=== PATIENT | female | born 1975 | race Caucasian/White ===

== ENCOUNTER 2016-10-08 11:56 | Observation (INO) | payer OTHER ==
[2016-10-08] MEDS ORDERED: ONDANSETRON 4 MG/2 ML VIAL IVP STA (12:26)
[2016-10-08] MEDS ORDERED: SODIUM CHLORIDE 0.9% 1,000 ML IV STA (12:26)
[2016-10-08] MEDS ORDERED: HYDROmorphone 1 MG/ML 1 ML SYRINGE IVP STA (12:26)
[2016-10-08] MEDS ORDERED: FAMOTIDINE 20 MG/2 ML VIAL IV STA (12:27)
--- NOTE | 2016-10-08 12:30 | ED ---
General Adult HPI - General Chief complaint: Chest Pain Stated complaint: chest pain, hx acid reflux Time Seen by Provider: 10/08/16 12:21 Source: patient, RN notes reviewed Mode of arrival: ambulatory Limitations: no limitations - History of Present Illness Initial comments: Patient is a pleasant 41-year-old female presenting to the emergency department complaining of her gastritis problems. Patient states is chronic for the past couple of years. Patient states she has been hospitalized 9 times in the past 2 years for this. Patient states symptoms started again around 3 AM. Patient has sharp discomfort in the sternal region. Patient states it feels burning somewhat. Patient has nausea and has vomited a couple of times. Patient states this is similar to her previous problems. Patient states she vomits because the pain is so bad. Patient states there is not much abdominal discomfort which is also normal for her. No difficulty in breathing. No fevers. - Related Data Home Medications Medication Instructions Recorded Confirmed Calcium Carbonate [Tums] 500 mg PO QID PRN 08/25/16 10/08/16 Cyclobenzaprine [Flexeril] 10 mg PO TID PRN 08/25/16 10/08/16 HYDROcodone/APAP 5-325MG [[place] 1 tab PO Q8H PRN 08/25/16 10/08/16 5-325] Ranitidine HCl [Zantac] 150 mg PO BID PRN 08/25/16 10/08/16 Previous Rx's Medication Instructions Recorded Omeprazole [PriLOSEC] 40 mg PO BID #60 capsule. 04/09/15 Sucralfate [Carafate] 1 gm PO ACHS #200 ml 08/25/16 Allergies Allergy/AdvReac Type Severity Reaction Status Date / Time ibuprofen [From Motrin] Allergy Rash/Hives Verified 10/08/16 12:59 Review of Systems ROS Statement: Those systems with pertinent positive or pertinent negative responses have been documented in the HPI. ROS Other: All systems not noted in ROS Statement are negative. Constitutional: Denies: fever Eyes: Denies: eye pain ENT: Denies: ear pain Respiratory: Denies: cough Cardiovascular: Reports: chest pain Endocrine: Denies: fatigue Gastrointestinal: Reports: nausea, vomiting. Denies: abdominal pain Genitourinary: Denies: dysuria Musculoskeletal: Denies: back pain Skin: Denies: rash Past Medical History Past Medical History: GERD/Reflux, Syncope Additional Past Medical History / Comment(s): Recent admission to [facility] 01/19/16 with abdominal pain. Other HX: PUD, hiatal hernia, ovarian cyst, anemia, nonsustained Vtach, DJD,back pain due to fracture L5 FX AND BROKE TAILBONE, SINUS PROBLEMS, multiple kidney infections History of Any Multi-Drug Resistant Organisms: None Reported Past Surgical History: Section, Cholecystectomy, Hysterectomy, Orthopedic Surgery, Tubal Ligation Additional Past Surgical History / Comment(s): Laparoscopic surgery where bowel was nicked so had emergency bowel surgery, R breast biopsy-NEG, LT hand surgery- CYST REMOVED, x2. Past Anesthesia/Blood Transfusion Reactions: No Reported Reaction Additional Past Anesthesia/Blood Transfusion Reaction / Comment(s): CLAUSTERPHOBIA. Pt had 2 units blood transfused when she had laparoscopic surgery and bowel was nicked. Past Psychological History: No Psychological Hx Reported Additional Psychological History / Comment(s): Pt lives with her mom and 2 children ages 14 and 21yrs. She is normally independent. Smoking Status: Current every day smoker Past Alcohol Use History: None Reported Additional Past Alcohol Use History / Comment(s): Pt started smoking in 1992. She quit during her pregnancies. Pt. states she has been trying to quit smoking , states she smokes 1/2 a pack a day Past Drug Use History: None Reported - Past Family History Sister(s) Additional Family Medical History / Comment(s): Irregular HR. Full Hysterectomy. Ovarian CA. Gallbladder. Kidney issues Father Family Medical History: Cancer Additional Family Medical History / Comment(s): BLADDER CANCER SPREAD TO KIDNEY AND PROSTATE Mother Family Medical History: COPD, GERD/Reflux, Thyroid Disorder Additional Family Medical History / Comment(s): Vertigo General Exam Limitations: no limitations General appearance: alert Head exam: Present: atraumatic, normocephalic Eye exam: Present: normal appearance, PERRL ENT exam: Present: normal oropharynx Neck exam: Present: normal inspection Respiratory exam: Present: normal lung sounds bilaterally, chest wall tenderness Cardiovascular Exam: Present: regular rate, normal rhythm GI/Abdominal exam: Present: soft. Absent: distended, tenderness Extremities exam: Present: normal inspection. Absent: pedal edema Neurological exam: Present: alert Psychiatric exam: Present: normal affect, normal mood Skin exam: Present: normal color Course Vital Signs 01/22/17 01/22/17 12:07 14:35 Temperature 98.0 F 97.8 F Pulse Rate 87 80 Respiratory 18 18 Rate Blood Pressure 172/101 145/86 O2 Sat by Pulse 99 100 Oximetry EKG Findings - EKG Comments: EKG Findings:: Normal sinus rhythm at 81. Normal intervals. Normal axis. normal QRS. Normal ST-T. Medical Decision Making - Medical Decision Making Patient reexamined and does appear more comfortable. Patient states her symptoms are the same as when she got here and is not comfortable with discharge. Case was discussed with Dr. holliday, who will admit for Dr. Whitfield. - Lab Data Result diagrams: 10/08/16 12:57 10/08/16 12:57 Lab Results 10/08/16 10/08/16 10/08/16 Range/Units 12:57 12:57 12:57 WBC 8.6 (3.8-10.6) k/uL RBC 4.31 (3.80-5.40) m/uL Hgb 13.3 (11.4-16.0) gm/dL Hct 40.1 (34.0-46.0) % MCV 93.0 (80.0-100.0) fL MCH 30.9 (25.0-35.0) pg MCHC 33.3 (31.0-37.0) g/dL RDW 14.6 (11.5-15.5) % Plt Count 318 (150-450) k/uL Neutrophils % 74 % Lymphocytes % 20 % Monocytes % 3 % Eosinophils % 1 % Basophils % 1 % Neutrophils # 6.4 (1.3-7.7) k/uL Lymphocytes # 1.7 (1.0-4.8) k/uL Monocytes # 0.3 (0-1.0) k/uL Eosinophils # 0.1 (0-0.7) k/uL Basophils # 0.1 (0-0.2) k/uL PT (9.0-12.0) sec INR (<1.1) APTT (22.0-30.0) sec Sodium 143 (137-145) mmol/L Potassium 4.2 (3.5-5.1) mmol/L Chloride 107 (98-107) mmol/L Carbon Dioxide 26 (22-30) mmol/L Anion Gap 10 mmol/L BUN 11 (7-17) mg/dL Creatinine 0.69 (0.52-1.04) mg/dL Est GFR (MDRD) Af Amer >60 (>60 ml/min/1.73 sqM) Est GFR (MDRD) Non-Af >60 (>60 ml/min/1.73 sqM) Glucose 103 H (74-99) mg/dL Calcium 9.3 (8.4-10.2) mg/dL Total Bilirubin 0.4 (0.2-1.3) mg/dL AST 17 (14-36) U/L ALT 29 (9-52) U/L Alkaline Phosphatase 93 (38-126) U/L Total Creatine Kinase 71 (30-135) U/L CK-MB (CK-2) 0.3 (0.0-2.4) ng/mL CK-MB (CK-2) Rel Index 0.4 Troponin I <0.012 (0.000-0.034) ng/mL Total Protein 6.9 (6.3-8.2) g/dL Albumin 4.0 (3.5-5.0) g/dL Amylase <30 L (30-110) U/L Lipase 122 (23-300) U/L Urine Color Urine Appearance (Clear) Urine pH (5.0-8.0) Ur Specific [place] (1.001-1.035) Urine Protein (Negative) Urine Glucose (UA) (Negative) Urine Ketones (Negative) Urine Blood (Negative) Urine Nitrate (Negative) Urine Bilirubin (Negative) Urine Urobilinogen (<2.0) mg/dL Ur Leukocyte Esterase (Negative) Urine RBC (0-5) /hpf Ur Squamous Epith Cells (0-4) /hpf Amorphous Sediment (None) /hpf Urine Mucus (None) /hpf 10/08/16 10/08/16 Range/Units 12:57 13:05 WBC (3.8-10.6) k/uL RBC (3.80-5.40) m/uL Hgb (11.4-16.0) gm/dL Hct (34.0-46.0) % MCV (80.0-100.0) fL MCH (25.0-35.0) pg MCHC (31.0-37.0) g/dL RDW (11.5-15.5) % Plt Count (150-450) k/uL Neutrophils % % Lymphocytes % % Monocytes % % Eosinophils % % Basophils % % Neutrophils # (1.3-7.7) k/uL Lymphocytes # (1.0-4.8) k/uL Monocytes # (0-1.0) k/uL Eosinophils # (0-0.7) k/uL Basophils # (0-0.2) k/uL PT 10.8 (9.0-12.0) sec INR 1.1 (<1.1) APTT 24.3 (22.0-30.0) sec Sodium (137-145) mmol/L Potassium (3.5-5.1) mmol/L Chloride (98-107) mmol/L Carbon Dioxide (22-30) mmol/L Anion Gap mmol/L BUN (7-17) mg/dL Creatinine (0.52-1.04) mg/dL Est GFR (MDRD) Af Amer (>60 ml/min/1.73 sqM) Est GFR (MDRD) Non-Af (>60 ml/min/1.73 sqM) Glucose (74-99) mg/dL Calcium (8.4-10.2) mg/dL Total Bilirubin (0.2-1.3) mg/dL AST (14-36) U/L ALT (9-52) U/L Alkaline Phosphatase (38-126) U/L Total Creatine Kinase (30-135) U/L CK-MB (CK-2) (0.0-2.4) ng/mL CK-MB (CK-2) Rel Index Troponin I (0.000-0.034) ng/mL Total Protein (6.3-8.2) g/dL Albumin (3.5-5.0) g/dL Amylase (30-110) U/L Lipase (23-300) U/L Urine Color Yellow Urine Appearance Cloudy H (Clear) Urine pH 8.0 (5.0-8.0) Ur Specific [place] 1.014 (1.001-1.035) Urine Protein Negative (Negative) Urine Glucose (UA) Negative (Negative) Urine Ketones Negative (Negative) Urine Blood Negative (Negative) Urine Nitrate Negative (Negative) Urine Bilirubin Negative (Negative) Urine Urobilinogen <2.0 (<2.0) mg/dL Ur Leukocyte Esterase Negative (Negative) Urine RBC 7 H (0-5) /hpf Ur Squamous Epith Cells 7 H (0-4) /hpf Amorphous Sediment Rare H (None) /hpf Urine Mucus Rare H (None) /hpf - Radiology Data Radiology results: image reviewed (Chest and abdominal x-rays show no acute process.) Disposition Clinical Impression: Intractable pain, Reflux gastritis, Chest pain Disposition: ADMITTED IP TO THIS HOSP Referrals: Wilner Hernández MD [Primary Care Provider] - 1-2 days
[2016-10-08 13:08] LABS: Basophils # (A) 0.1 k/uL (0-0.2); Basophils % (A) 1 %; CH 32.1; CHCM 34.7; Eosinophils # (A) 0.1 k/uL (0-0.7); Eosinophils % (A) 1 %; HCT 40.1 % (34.0-46.0); HDW 2.67; HGB 13.3 gm/dL (11.4-16.0); Luc # (Auto) 0.09; Luc % (Auto) 1; Lymphocytes # (A) 1.7 k/uL (1.0-4.8); Lymphocytes % (A) 20 %; MCH 30.9 pg (25.0-35.0); MCHC 33.3 g/dL (31.0-37.0); Mean Platelet Volume 7.3; Monocytes # (A) 0.3 k/uL (0-1.0); Monocytes % (A) 3 %; Neutrophils # (A) 6.4 k/uL (1.3-7.7); Neutrophils % (A) 74 %; RBC 4.31 m/uL (3.80-5.40); RDW 14.6 % (11.5-15.5); WBC 8.6 k/uL (3.8-10.6); WBC (Perox) 8.79
[2016-10-08 13:17] LABS: INR 1.1 (<1.1); Partial Thromboplastin Time 24.3 sec (22.0-30.0); Prothrombin Time 10.8 sec (9.0-12.0)
[2016-10-08 13:19] LABS: ALT 29 U/L (9-52); AST 17 U/L (14-36); Alkaline Phosphatase 93 U/L (38-126); Amylase <30 U/L (30-110); Anion Gap 10 mmol/L; Blood Urea Nitrogen 11 mg/dL (7-17); Calcium 9.3 mg/dL (8.4-10.2); Carbon Dioxide 26 mmol/L (22-30); Chloride 107 mmol/L (98-107); Glucose 103 mg/dL (74-99); Non-African American GFR(MDRD) >60 (>60 ml/min/1.73 sqM); Potassium 4.2 mmol/L (3.5-5.1); Sodium 143 mmol/L (137-145); Total Bilirubin 0.4 mg/dL (0.2-1.3); Total Protein 6.9 g/dL (6.3-8.2)
[2016-10-08 13:22] LABS: Amorphous Sediment,Urine Rare /hpf; Appearance,Urine Cloudy (Clear); Bilirubin,Urine Negative (Negative); Glucose,Urine (UA) Negative (Negative); Ketones,Urine Negative (Negative); Leukocyte Esterase,Urine Negative (Negative); Mucus,Urine Rare /hpf; Nitrite,Urine Negative (Negative); Particle Count 16143; Protein,Urine Negative (Negative); RBC,Urine 7 /hpf (0-5); Specific Gravity,Urine 1.014 (1.001-1.035); Squamous Epithelial Cell,Urine 7 /hpf (0-4); UA Billing (MACRO vs. MICRO) MICRO; Urobilinogen,Urine <2.0 mg/dL (<2.0)
[2016-10-08 13:27] LABS: Creatine Kinase 71 U/L (30-135)
[2016-10-08 13:40] LABS: Creatine Kinase MB 0.3 ng/mL (0.0-2.4); Troponin I <0.012 ng/mL (0.000-0.034)
[2016-10-08] MEDS ORDERED: MAG HYDROX/AL HYDROX/SIMETH 30 ML, HYOSCYAMINE ELIXIR 10 ML, CIMETIDINE HCL 300 MG, LID... PO STA ×4 (14:00)
--- NOTE | 2016-10-08 14:06 | XR ---
EXAMINATION TYPE: XR chest 2V, XR KUB DATE OF EXAM: 10/08/2016 1:42 PM COMPARISON: Prior chest x-ray 25 August 2016 HISTORY: Abdominal pain, chest pain TECHNIQUE: Frontal and lateral views of the chest are obtained. Frontal view of the abdomen included FINDINGS: There is no focal air space opacity, pleural effusion, or pneumothorax seen. The cardiac silhouette size is within normal limits. The osseous structures are intact. There is no obstruction or pneumoperitoneum. Surgical clips in the right upper quadrant. IMPRESSION: No acute cardiopulmonary process. Nonobstructive bowel gas pattern.
[2016-10-08] MEDS ORDERED: NALOXONE 0.4 MG/ML 1 ML VIAL IV PRN (15:17)
[2016-10-08] MEDS ORDERED: ACETAMINOPHEN TAB 325 MG TAB PO STA (16:03)
[2016-10-08] MEDS: SODIUM CHLORIDE 0.9% 1,000 ML IV SCH (16:40)
[2016-10-08] MEDS: MORPHINE SULFATE 4 MG/ML SYRINGE IV PRN ×2 (16:45→21:47)
[2016-10-08] MEDS: SUCRALFATE 1 GM TAB PO SCH ×2 (17:52→21:46)
[2016-10-08 18:02] VITALS: BMI 20.5
[2016-10-08] MEDS: METOCLOPRAMIDE 5 MG/ML 2 ML VIAL IVP SCH (18:10)
[2016-10-08] MEDS ORDERED: MAG HYDROX/AL HYDROX/SIMETH 30 ML, HYOSCYAMINE ELIXIR 10 ML, CIMETIDINE HCL 300 MG, LID... PO PRN ×4 (22:36)
[2016-10-09] MEDS ORDERED: HYOSCYAMINE ELIXIR 250 MCG/10 ML BTL PO PRN
[2016-10-09] MEDS ORDERED: MAG HYDROX/AL HYDROX/SIMETH 30 ML CUP PO PRN
[2016-10-09] MEDS ORDERED: CIMETIDINE HCL 300 MG/5 ML PO PRN
[2016-10-09] MEDS: METOCLOPRAMIDE 5 MG/ML 2 ML VIAL IVP SCH ×5 (00:10→23:37)
[2016-10-09] MEDS: SODIUM CHLORIDE 0.9% 1,000 ML IV SCH ×3 (00:12→17:03)
[2016-10-09] MEDS: MORPHINE SULFATE 4 MG/ML SYRINGE IV PRN (03:59)
[2016-10-09] MEDS: SUCRALFATE 1 GM TAB PO SCH ×4 (08:04→21:01)
[2016-10-09] MEDS ORDERED: PANTOPRAZOLE 40 MG/10 ML VIAL IV SCH (09:00)
[2016-10-09] MEDS ORDERED: Acetaminophen-Codeine 300-30mg TAB PO PRN (09:06)
[2016-10-09] MEDS ORDERED: MORPHINE SULFATE 4 MG/ML SYRINGE IV PRN (09:07)
[2016-10-09] MEDS: HYDROmorphone 1 MG/ML 1 ML SYRINGE IVP PRN ×3 (14:06→21:59)
[2016-10-09] MEDS: NICOTINE 14MG/24HR PATCH TRANSDERM SCH (14:08)
[2016-10-09] MEDS: MAG HYDROX/AL HYDROX/SIMETH 30 ML, HYOSCYAMINE ELIXIR 10 ML, CIMETIDINE HCL 300 MG, LID... PO PRN ×8 (14:11→23:37)
[2016-10-09] MEDS: Acetaminophen-Codeine 300-30mg TAB PO PRN (17:39)
--- NOTE | 2016-10-09 19:11 | HP ---
DATE OF ADMISSION: 10/08/2016 CHIEF COMPLAINT: Epigastric abdominal pain. HISTORY OF PRESENT ILLNESS: Ms. Montenegro is a 41-year-old female with known history of multiple medical problems, including a duodenal ulcer, status post EGD previously and history of cholecystectomy in February 2016, diffuse gastritis history and other multiple medical problems, including degenerative disc disease. She came to the hospital with intractable abdominal pain, mainly in the epigastric region; no association with chest pain or shortness of breath. Patient does have nausea and episodes of vomiting. epigastric region. History of chest pain or short of breath. Patient does have nausea and episodes of vomiting. Denied any hematemesis or melena. Patient continues to smoke. Otherwise, patient had an EGD prior that showed diffuse gastritis and a duodenal ulcer with a stricture and also patient had elevated gastrin levels. Patient continues to smoke and also patient has been taking Excedrin recently. Patient does omeprazole 40 mg b.i.d. at home. Gastroenterology has been consulted for further evaluation. REVIEW OF SYSTEMS: CONSTITUTIONAL: No fever. No chills. No weakness, malaise. RESPIRATORY: No cough or sputum production. CARDIOVASCULAR: No chest pain or shortness of breath. ABDOMEN: Patient does have nausea. No episodes of vomiting now. Patient does have epigastric abdominal pain. No diarrhea. Patient does have history of chronic constipation. GENITOURINARY: No dysuria, retention. ENDOCRINE: Negative. PSYCHIATRY: Negative. SKIN: Negative. MUSCULOSKELETAL: Negative. All other 14-point review of systems negative except as above. Past medical history includes: 1. History of duodenal ulcer. 2. Elevated gastrin levels. 3. GERD. 4. Degenerative disc disease. 5. Nicotine dependence. 6. Hiatal hernia. 7. Anemia. 8. History of nonsustained ventricular tachycardia. 9. Sinus problems. 10. Multiple UTIs and renal infection. PAST SURGICAL HISTORY: 1. x2. 2. Cholecystectomy. 3. Hysterectomy. 4. Tubal ligation. 5. Laparoscopic surgery where bowel was nicked, so had emergency bowel surgery. 6. Right breast biopsy, negative. 7. Left hand surgery; cyst removed. PAST PSYCHIATRIC HISTORY: Claustrophobia. SOCIAL HISTORY: Patient lives with her mom and 2 children ages 14 and 21 years. Currently an everyday smoker; smokes about a half pack per day. Started smoking in 1992. She quit during pregnancies. Denied any alcohol use. Denied any drugs or IVDU. Denied any marijuana use. FAMILY HISTORY: Sister has irregular heart rate and ovarian cancer and gallbladder ( ). Father had bladder cancer that spread to the kidneys and prostate. Mother has COPD, GERD, thyroid disorder and vertigo. ALLERGIES: IBUPROFEN. Home medications include: 1. TUMS. 2. Flexeril. 3. [place] 5. 4. Zantac. 5. Omeprazole. 6. Sucralfate. PHYSICAL EXAMINATION: A 41-year-old female lying in bed. Awake, alert, oriented x3. Appears to be in no distress. VITALS: Blood pressure is 118/77. Pulse is 82, respiration 60, temperature afebrile, pulse ox 95% on room air. HEENT: Atraumatic, normocephalic. Neck is supple. No JVD. CVS EXAM: S1, S2 heard. No murmurs. No gallop. No rub. LUNGS: Bilateral air entry is present. No wheezing. No crackles. Nonlabored breathing. ABDOMEN: Soft. Epigastric tenderness positive. No guarding. No rigidity. Bowel sounds are present. ENDOCRINOLOGIST: Awake, alert and oriented x3. No focal deficit. Cranial nerves grossly intact. EXTREMITIES: No edema. Pulses palpable bilaterally. No clubbing or cyanosis. PSYCHIATRIC: Cooperative. LABORATORY DATA: WBC 8.6, hemoglobin 10.3, platelets 318. INR 1.1. Sodium 143, potassium 4.2, chloride 107. Bicarb is 26. BUN 11, creatinine 0.69. Calcium 9.3. Troponin 0.012. Lipase 122. UA cloudy. Leukocyte esterase negative. Squamous epithelial cells 7. Chest x-ray: no acute cardiopulmonary process. Normal bowel gas pattern. EKG: Normal sinus rhythm. KUB x-ray: No acute cardiopulmonary process. Nonobstructive bowel gas pattern. IMPRESSION: 1. Acute intractable epigastric abdominal pain, possible gastritis and reflux disease, acute gastritis and reflux disease. 2. History of duodenal ulcer and stricture. 3. Previous history of diffuse gastritis. 4. History of cholecystectomy done on February of 2016. 5. History of elevated serum gastrin level at 539. 6. Gastroesophageal reflux disease. 7. History of hiatal hernia. 8. History of non-sustained ventricular tachycardia. 9. Degenerative disc disease and multiple back surgeries. 10. Claustrophobia. 11. Nicotine dependence. 12. History of panic attacks. 13. History of nephrolithiasis. 14. History of mastectomy. 15. History of left ovarian cyst. DISCUSSION AND PLAN: Patient will be continued on Protonix 40 mg IV b.i.d. and continue with pain medications. Will change it to Dilaudid 0.5 mg q.4 hourly. Continue with the Tylenol No. 3 every 6 hours. Patient will be started on a nicotine patch. Will also start on stool softener. Will continue the pain management. Gastroenterology has been consulted for further evaluation. Continue with symptomatic management for nausea and vomiting. Further recommendations based on the clinical course.
[2016-10-09] MEDS: DOCUSATE 100 MG CAP PO SCH (21:01)
[2016-10-09] MEDS: PANTOPRAZOLE 40 MG/10 ML VIAL IVP SCH (21:01)
[2016-10-09] MEDS: TEMAZEPAM 15 MG CAP PO PRN (23:37)
[2016-10-10] MEDS: HYDROmorphone 1 MG/ML 1 ML SYRINGE IVP PRN ×6 (02:04→22:38)
[2016-10-10] MEDS: Acetaminophen-Codeine 300-30mg TAB PO PRN ×2 (02:06→06:16)
[2016-10-10] MEDS: SODIUM CHLORIDE 0.9% 1,000 ML IV SCH ×2 (05:10→23:53)
[2016-10-10] MEDS: METOCLOPRAMIDE 5 MG/ML 2 ML VIAL IVP SCH ×3 (06:15→20:10)
[2016-10-10] MEDS: SUCRALFATE 1 GM TAB PO SCH ×4 (08:10→22:37)
[2016-10-10] MEDS: DOCUSATE 100 MG CAP PO SCH ×2 (08:10→22:38)
[2016-10-10] MEDS: NICOTINE 14MG/24HR PATCH TRANSDERM SCH (09:02)
[2016-10-10] MEDS: PANTOPRAZOLE 40 MG/10 ML VIAL IVP SCH ×2 (09:02→22:37)
[2016-10-10] MEDS ORDERED: LIDOCAINE 1% INJ 10MG/ML (20 ML MDV) ONE (12:10)
[2016-10-10] MEDS ORDERED: PROPOFOL 10 MG/ML 20 ML VIAL IV ONE (12:10)
[2016-10-10] MEDS ORDERED: IV FLUID CONTINUATION 1,000 ML IV ONE (12:17)
--- NOTE | 2016-10-10 13:19 | P.PCN ---
Date of Procedure: 10/10/16 Procedure(s) Performed: Procedure: Esophagogastroduodenoscopy and biopsy and removal of duodenal foreign body. Preoperative diagnosis: Abdominal pain and atypical chest pains. Postoperative diagnosis: 1. Very small sliding hiatal hernia with no obvious esophagitis or complicated reflux disease. 2. Mild antral gastritis. 3. 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 4. Benign stricture in the immediate post bulbar area just allowing the advancement of the endoscope with no evidence of ulcerations. 5. Biopsies obtained from the antrum and esophagus. Preparation and sedation: Were provided by anesthesia. Brief clinical history: The patient is a 41-year-old female with history of duodenal ulcer and multiple hospitalizations in the past for abdominal pains and evidence of early stricture, presented with abdominal pain and atypical chest pains as well as vomiting that started early in the morning on the day of admission. I scheduled this evaluation to assess for partial gastric outlet obstruction or other pathology related to her prior history or other new pathology. The details are summarized in the history and physical and dictated consultation. Procedure: With the patient on her left lateral decubitus position and after informed consent and adequate sedation, I passed the Olympus-GIF 160 video upper endoscope through the cricopharyngeus down the esophagus. GE junction was around 37 cm from the incisors and there was a very small, less than 1 cm, sliding hiatal hernia. The esophagus did not show any obvious esophagitis or any strictures or Armendariz's esophagus. The endoscope was then passed into the stomach which was insufflated with air and inspected in detail including the retroflex view in the cardia. There was some mottling and erythema in the antrum and the immediate prepyloric area but no ulcers, erosions or bleeding. Pyloric channel did not show any ulcers. Duodenal bulb was somewhat deformed and there was a large mushroom filling a pseudodiverticulum just proximal to the post bulbar area. There was a benign-appearing stricture in the immediate post bulbar area that just allowed the advancement of the endoscope. There were no active ulcers or bleeding. I obtained biopsies from the antrum and esophagus. I used the biopsy forceps to mobilize the mushroom. Because of its size I could not retrieve it by this approach. And accordingly, I used the snare to capture the mushroom and brought it out by withdrawing the endoscope. I had a final look after removing the foreign body material, by reintroducing the endoscope, to ascertain the absence of any ulcers or other pathology in that area that could have been hiding behind the mushroom and there were none. The patient tolerated the procedure well. Plan: The patient was reassured. Will await biopsy results. Will allow low residue diet and further plans can be made based on her course.
[2016-10-10] MEDS: HYDROcodone/APAP 5-325MG 1 EACH TAB PO PRN ×2 (15:24→22:39)
[2016-10-10] MEDS: TEMAZEPAM 15 MG CAP PO PRN (23:53)
[2016-10-11] MEDS: METOCLOPRAMIDE 5 MG/ML 2 ML VIAL IVP SCH ×2 (05:14→08:08)
[2016-10-11] MEDS: HYDROcodone/APAP 5-325MG 1 EACH TAB PO PRN ×3 (05:28→17:25)
[2016-10-11] MEDS: SODIUM CHLORIDE 0.9% 1,000 ML IV SCH ×2 (05:42→16:53)
[2016-10-11 07:05] LABS: Basophils % (A) 0 %; CH 32.1; CHCM 34.4; Eosinophils # (A) 0.1 k/uL (0-0.7); Eosinophils % (A) 2 %; HCT 35.4 % (34.0-46.0); HDW 2.64; Luc # (Auto) 0.13; Luc % (Auto) 2; Lymphocytes # (A) 2.4 k/uL (1.0-4.8); Lymphocytes % (A) 41 %; MCH 31.8 pg (25.0-35.0); MCHC 33.9 g/dL (31.0-37.0); MCV 93.7 fL (80.0-100.0); Mean Platelet Volume 6.9; Monocytes # (A) 0.3 k/uL (0-1.0); Monocytes % (A) 5 %; Neutrophils # (A) 2.9 k/uL (1.3-7.7); Neutrophils % (A) 49 %; RBC 3.78 m/uL (3.80-5.40); RDW 14.4 % (11.5-15.5); WBC 5.9 k/uL (3.8-10.6)
[2016-10-11 07:15] LABS: Anion Gap 8 mmol/L; Blood Urea Nitrogen 6 mg/dL (7-17); Calcium 8.8 mg/dL (8.4-10.2); Carbon Dioxide 26 mmol/L (22-30); Chloride 106 mmol/L (98-107); Glucose 87 mg/dL (74-99); Non-African American GFR(MDRD) >60 (>60 ml/min/1.73 sqM); Potassium 3.9 mmol/L (3.5-5.1); Sodium 140 mmol/L (137-145)
[2016-10-11] MEDS: SUCRALFATE 1 GM TAB PO SCH ×3 (07:59→17:23)
--- NOTE | 2016-10-11 08:27 | P.PN ---
Subjective Principal diagnosis: abdominal pain 41-year-old female status post EGD for abdominal pain with findings of small sliding hiatal hernia mild antral gastritis with deformed duodenal bulb with pseudodiverticula and retained food/mushroom removed with snare. Benign stricture in the immediate post bulbar area allowing advancement of scope with no evidence of ulcerations. Feels better. No appetite. Afebrile. Objective - Vital Signs Vital signs: Vital Signs Temp 98.3 F 10/11/16 00:00 Pulse 78 10/11/16 00:00 Resp 18 10/11/16 00:00 BP 121/83 10/11/16 00:00 Pulse Ox 97 10/11/16 00:00 Intake & Output 10/10/16 10/11/16 10/11/16 18:59 06:59 18:59 Intake Total 300 Balance 300 Intake: IV 300 Other: Voiding Method Toilet Toilet # Voids 1 1 - Exam General appearance: The patient is alert, oriented, in no acute distress. HET: Head is normocephalic and atraumatic. Pupils are equal and reactive. Oropharynx is clear without lesions. Neck: Supple without lymphadenopathy. Trachea midline. Heart: S1 S2. Regular rate and rhythm. Lungs: No crackles or wheezes are heard. Abdomen: Soft, nontender, nondistended with bowel sounds. No peritoneal signs. No palpable organomegaly or masses. Extremities: Normal skin color and turgor. No cyanosis, rash, ulceration, clubbing, or edema. Radial and pedal pulses are 2/4 bilaterally. Neurological: No focal deficits. Strength and sensation are grossly intact. - Labs CBC & Chem 7: 10/11/16 06:31 10/11/16 06:31 Labs: Abnormal Lab Results - Last 24 Hours (Table) 10/11/16 10/11/16 Range/Units 06:31 06:31 RBC 3.78 L (3.80-5.40) m/uL BUN 6 L (7-17) mg/dL Assessment and Plan (1) Abdominal pain Narrative/Plan: 41-year-old female with a history of GERD and duodenal ulcer admitted with intractable epigastric pain with nausea vomiting status post EGD taking Excedrin recently with underlying history of nicotine cigarette dependency. No evidence of apical ulcer disease with pseudodiverticulum in the duodenum with retained food mushroom within diverticula status post snare removal and biopsies. Status: Acute (2) GERD (gastroesophageal reflux disease) Status: Acute Plan: 1. Smoking cessation advised. 2. Soft diet as tolerated. 3. Continue with omeprazole 40 mg twice daily at home. 4. Return to GI office in 1-2 weeks for reevaluation. Assessment and plan a care discussed with Dr. Mojica
[2016-10-11] MEDS: PANTOPRAZOLE 40 MG/10 ML VIAL IVP SCH (09:41)
[2016-10-11] MEDS: HYDROmorphone 1 MG/ML 1 ML SYRINGE IVP PRN ×2 (09:41→13:32)
[2016-10-11] MEDS: NICOTINE 14MG/24HR PATCH TRANSDERM SCH (09:42)
[2016-10-11] MEDS: DOCUSATE 100 MG CAP PO SCH (09:42)
--- NOTE | 2016-10-11 10:49 | PN ---
DATE OF SERVICE: 10/10/2016 INTERVAL HISTORY: Ms. Montenegro is a 41-year-old female with known history of gastritis and duodenal ulcer came to the hospital with complaints of intractable abdominal pain and nausea and vomiting. Patient underwent endoscopy today which showed a small sliding hiatal hernia, mild ventral gastritis antral gastritis, deformed duodenal bulb and benign stricture in the immediate postbulbar area and also a large ( ) was extracted from the stomach. The patient symptomatically improved today. The patient is being started on clear liquid diet and advance as tolerated. Continue the PPI. Patient was advised not to take ( ). Gastroenterology is following the patient. REVIEW OF SYSTEMS: CONSTITUTIONAL: No fever. No chills. RESPIRATORY: No cough or sputum production. CARDIOVASCULAR: No chest pain or short of breath. ABDOMEN: No nausea, vomiting or abdominal pain. GENITOURINARY: Negative. ENDOCRINE: Negative. PSYCHIATRY: Negative. SKIN: Negative. All other 14-point review of systems negative except the above. CURRENT MEDICATIONS: Reviewed. PHYSICAL EXAMINATION: A 41-year-old female lying in bed comfortably, awake, alert and oriented x3. He appears to be in no apparently distress. VITALS: Blood pressure is 141/86, pulse 81, respirations 16, temperature afebrile, pulse ox is 96% on room air. HEENT: Atraumatic, normocephalic. Neck is supple. No JVD. CVS EXAM: S1, S2 heard. No murmurs, no gallop, no rub. LUNGS: Bilateral air entry is present. No wheezing. No crackles. Nonlabored breathing. ABDOMEN: Soft, nontender. Bowel sounds present. SANDWICH MAKER: Awake, alert and oriented x3. No focal deficits. EXTREMITIES: No edema. Pulses are palpable bilaterally. No clubbing or cyanosis. PSYCHIATRIC: Cooperative. LABORATORY DATA: WBC 8.6, hemoglobin 13.3, platelets 318. INR 1.1. Sodium 143, potassium 4.2, chloride 107, bicarb is 26. BUN 11, creatinine 0.69. Blood sugar is 103. Amylase less than 30. UA reviewed unlikely acute urinary tract infection. IMPRESSION: 1. Acute intractable abdominal pain, status post EGD showed gastritis and small hiatal hernia. Will continue the PPI and patient was started on clear liquids and advance as tolerated. 2. History of duodenal ulcer and stricture. 3. Previous history of diffuse gastritis. 4. History of cholecystectomy done in February 2016. 5. Elevated serum gastrin level at 539. 6. Gastroesophageal reflux disease. 7. History of hiatal hernia. 8. History of nonsustained ventricular tachycardia. 9. Degenerative disc disease and multiple back surgeries. 10. Claustrophobia. 11. Nicotine dependence. 12. History of panic attacks. 13. History of nephrolithiasis. 14. History of mastectomy. 15. History of left ovarian cyst. DISCUSSION AND PLAN: Patient will be continued on Protonix, continue on pain management in the form of Dilaudid and continue with current management. Patient was started on ( ) as tolerated. Anticipate discharge tomorrow once the pain improves and patient tolerates regular diet. Follow up closely further. Further recommendations based on the clinical course.
[2016-10-11] MEDS ORDERED: KETOROLAC 30 MG/ML 1 ML VIAL IVP STA (16:05)
[2016-10-11 16:10] VITALS: BP 122/94; PULSE 92; RESP 20; TEMP 98.2
[2016-10-11] MEDS ORDERED: BUTALB/APAP/CAFF 50-325-40MG TAB PO STA (17:30)
--- NOTE | 2016-10-11 18:24 | P.DS ---
Providers Date of admission: 10/08/16 15:17 Expected date of discharge: 10/11/16 Attending physician: Nick Bruno Primary care physician: Betty Kumar [facility] Course: 41-year-old female is admitted to the hospital with intractable abdominal pain and nausea. Patient has a history of duodenal ulcer in the past. Patient apparently was noting multiple episodes of intractable nausea in the recent period of time. Patient was also vomiting of foul-smelling vomitus in the recent times. Patient underwent a upper endoscopy was noted to have a sliding hiatal hernia and gastritis. There also a large diverticuli auto which of old food was extracted. Patient was recommended to be on a PPI 40 minutes twice a day. Patient is also on ranitidine 150 mg twice a day. Patient was started on sucralfate. Patient underwent biopsies we'll need to await results to see if there is any evidence of H. pylori infection. She apparently does have a gastrin level elevated at 539 this also needs to be followed up on an outpatient basis On the day of discharge physical exam Gen Appearance alert oriented 3 in no distress Lungs currently clear to auscultation Abdomen is soft nontender no organomegaly Neurologically no focal motor or sensory deficit patient Heart regular rate and rhythm no murmurs appreciated #1 intractable nausea vomiting secondary to erosive gastritis H. pylori to be ruled out #2 headaches likely medication induced #3 history of hiatal hernia #4 nicotine dependence #5 history of panic attacks #6 history of NSVT #7 degenerative disc disease fioricet for 2-3 days. Did discuss medication withdrawal headaches. Patient can be discharged home to follow-up with Dr. Hendrix in 2 weeks. Plan - Discharge Summary New Discharge Prescriptions: Butalb/Acetaminophen/Caffeine [Fioricet 50-325-40] 1 - 2 each PO Q4H #15 tab HYDROcodone/APAP 5-325MG [[place] 5-325] 1 tab PO Q8H PRN #30 tab PRN Reason: Pain Discharge Medication List Omeprazole [PriLOSEC] 40 mg PO BID #60 capsule. 04/09/15 [Rx] Calcium Carbonate [Tums] 500 mg PO QID PRN 08/25/16 [History] Ranitidine HCl [Zantac] 150 mg PO BID PRN 08/25/16 [History] Sucralfate [Carafate] 1 gm PO ACHS #200 ml 12/09/16 [Rx] Butalb/Acetaminophen/Caffeine [Fioricet 50-325-40] 1 - 2 each PO Q4H #15 tab [Rx] HYDROcodone/APAP 5-325MG [[place] 5-325] 1 tab PO Q8H PRN #30 tab 10/11/16 [Rx] Follow up Appointment(s)/Referral(s): Jason Mojica MD [STAFF PHYSICIAN] - 10 Days Wilner Hernández MD [Primary Care Provider] - 1-2 days Discharge Disposition: HOME SELF-CARE
== END 2016-10-11 19:50 | disposition home or self-care (01) ==
LOC: EC 11:56 → 6PED 15:17
PROVIDERS: ADMIT Internal Medicine; ATTEND Internal Medicine
DX: K29.50 Unspecified chronic gastritis without bleeding (principal); T18.3XXA Foreign body in small intestine, initial encounter; K44.9 Diaphragmatic hernia without obstruction or gangrene; K21.0 Gastro-esophageal reflux disease with esophagitis; R51 Headache; R07.89 Other chest pain; F40.240 Claustrophobia; F17.210 Nicotine dependence, cigarettes, uncomplicated; Z87.440 Personal history of urinary (tract) infections; Z88.6 Allergy status to analgesic agent; Z90.49 Acquired absence of other specified parts of digestive tract; Z90.10 Acquired absence of unspecified breast and nipple; Z79.899 Other long term (current) drug therapy; Z79.891 Long term (current) use of opiate analgesic; Z80.41 Family history of malignant neoplasm of ovary; Z80.52 Family history of malignant neoplasm of bladder; Z80.51 Family history of malignant neoplasm of kidney; Z80.42 Family history of malignant neoplasm of prostate; Y93.9 Activity, unspecified; Y92.9 Unspecified place or not applicable
CPT/HCPCS: 99285; 96374; 96375 ×2; 96361; 36415; 93005; 88305; 80053; 80048; 82150; 82550; 82553; 83690; 84484; 85025 ×2; 85610; 85730; 81001; 88342; 71020; 74000; 43239; 44799; G0378 ×4; S4990 ×3; J2270 ×2; J2765 ×3; J2405; J2001; J1885; J1170 ×4; J2704; C9113 ×3; 43247; 96376; 99153

== ENCOUNTER 2016-12-04 12:30 | Emergency (ER) | payer OTHER ==
[2016-12-04 13:13] VITALS: RESP 16
[2016-12-04] MEDS ORDERED: FAMOTIDINE 20 MG/2 ML VIAL IV STA (14:45)
[2016-12-04] MEDS ORDERED: SODIUM CHLORIDE 0.9% 1,000 ML IV STA (14:45)
[2016-12-04] MEDS ORDERED: MAG HYDROX/AL HYDROX/SIMETH 30 ML, HYOSCYAMINE ELIXIR 10 ML, CIMETIDINE HCL 300 MG, LID... PO STA ×4 (14:45)
--- NOTE | 2016-12-04 15:00 | ED ---
Abdominal Pain HPI - General Chief Complaint: Abdominal Pain Stated Complaint: abd pain,acid reflux Time Seen by Provider: 12/04/16 14:27 Source: patient Mode of arrival: ambulatory Limitations: no limitations - History of Present Illness Initial Comments: Patient is a 41-year-old female with history of gastritis and "stomach pocket which needs to be removed surgically" presenting for abdominal pain, nausea, vomiting, diarrhea. Patient states she's had the same symptoms with past 2 years but acutely worsened on Sunday. Patient states she vomited once today, water contents. Patient states burning in his stomach and radiating up into the neck. Patient states she had 2-3 episodes of yellow/green diarrhea today. Denies blood in vomit or diarrhea. Denies antibiotics, sick contacts, suspicious food. Patient admits to compliance with her Prilosec and Carafate however she did run out of her Prilosec today. Patient states she called her GI Dr. Mojica who directed her to the emergency room. Patient denies fever, chills, SOB, dysuria. - Related Data Home Medications Medication Instructions Recorded Confirmed Sucralfate [Carafate] 1 gm PO ACHS 12/04/16 12/04/16 Previous Rx's Medication Instructions Recorded Omeprazole [PriLOSEC] 40 mg PO BID #60 capsule. 04/09/15 HYDROcodone/APAP 5-325MG [[place] 1 tab PO Q8H PRN #30 tab 10/11/16 5-325] Dicyclomine [Bentyl] 20 mg PO QID #28 tablet 12/04/16 Allergies Allergy/AdvReac Type Severity Reaction Status Date / Time ibuprofen [From Motrin] Allergy Rash/Hives Verified 12/04/16 15:27 Review of Systems ROS Statement: Those systems with pertinent positive or pertinent negative responses have been documented in the HPI. Constitutional: No fever and no chills. HENT: No congestion, no rhinorrhea and no sore throat. Eyes: No discharge and no redness. Respiratory: No cough and no shortness of breath. Cardiovascular: +chest pain and no palpitations. Gastrointestinal:+nausea/vomiting/abdominal pain/diarrhea. Genitourinary: No dysuria and no hematuria. Musculoskeletal: No back pain and no arthralgias. Skin: No pallor and no rash. Neurological: No dizziness and No headaches. ROS Other: All systems not noted in ROS Statement are negative. Past Medical History Past Medical History: GERD/Reflux, Syncope Additional Past Medical History / Comment(s): Recent admission to [facility] 01/19/16 with abdominal pain. Other HX: PUD, hiatal hernia, ovarian cyst, anemia, nonsustained Vtach, DJD,back pain due to fracture L5 FX AND BROKE TAILBONE, SINUS PROBLEMS, multiple kidney infections History of Any Multi-Drug Resistant Organisms: None Reported Past Surgical History: Section, Cholecystectomy, Hysterectomy, Orthopedic Surgery, Tubal Ligation Additional Past Surgical History / Comment(s): Laparoscopic surgery where bowel was nicked so had emergency bowel surgery, R breast biopsy-NEG, LT hand surgery- CYST REMOVED, x2. Past Anesthesia/Blood Transfusion Reactions: No Reported Reaction Additional Past Anesthesia/Blood Transfusion Reaction / Comment(s): CLAUSTERPHOBIA. Pt had 2 units blood transfused when she had laparoscopic surgery and bowel was nicked. Past Psychological History: No Psychological Hx Reported Additional Psychological History / Comment(s): Pt lives with her mom and 2 children ages 14 and 21yrs. She is normally independent. Smoking Status: Current every day smoker Past Alcohol Use History: None Reported Additional Past Alcohol Use History / Comment(s): Pt started smoking in 1992. She quit during her pregnancies. Pt. states she has been trying to quit smoking , states she smokes 1/2 a pack a day Past Drug Use History: None Reported - Past Family History Sister(s) Additional Family Medical History / Comment(s): Irregular HR. Full Hysterectomy. Ovarian CA. Gallbladder. Kidney issues Father Family Medical History: Cancer Additional Family Medical History / Comment(s): BLADDER CANCER SPREAD TO KIDNEY AND PROSTATE Mother Family Medical History: COPD, GERD/Reflux, Thyroid Disorder Additional Family Medical History / Comment(s): Vertigo General Exam - General Exam Comments Initial Comments: Constitutional: Patient appears well-developed and well-nourished. No distress. Head: Normocephalic and atraumatic. Eyes: Conjunctivae and EOM are normal. Right eye exhibits no discharge. Left eye exhibits no discharge. No scleral icterus. Neck: Normal range of motion. Neck supple. Cardiovascular: Tachycardic on presentation EKG and physical exam without tachycardia. No murmur heard. Pulmonary/Chest: Effort normal and breath sounds normal. No respiratory distress. No wheezes. Abdominal: Soft. No distension. There is no tenderness. There is no rebound and no guarding. Musculoskeletal: Normal range of motion. No edema or tenderness. Neurological: Patient alert and oriented to person, place, and time. Skin: Skin is warm and dry. Not diaphoretic. Nursing notes and vitals reviewed. Limitations: no limitations Course Vital Signs 12/04/16 12/04/16 13:11 17:14 Temperature 100.0 F H 98.9 F Pulse Rate 93 75 Respiratory 16 16 Rate Blood Pressure 165/93 129/81 O2 Sat by Pulse 99 98 Oximetry - Reevaluation(s) Reevaluation #1: Patient very pleasant upon initial evaluation. Called to patient's room as she is demanding something for pain as she is worse off now. Patient demanded I call Dr. Mojica as that is the doctor that sent her in. Calmly disclosed normal laboratory results except for magnesium which will be replaced. Offered nonnarcotic pain medication including Carafate and Bentyl. Reevaluation #2: Discussed care with Dr. Mojica whos agree with assessment and plan given laboratory workup and physical exam report. He also agrees to avoid narcotic pain medications in chronic abdominal pain. He recommended Bentyl for home. Medical Decision Making - Medical Decision Making Patient is a 41-year-old female presenting with acute exacerbation of chronic abdominal pain with nausea/vomiting/diarrhea. Patient without further episodes of vomiting here. No diarrhea while here without concerns for C. diff. Patient had an unremarkable physical exam. EKG was unremarkable. Laboratory workup showed magnesium 1.4 otherwise CBC and CMP unremarkable. UA negative. Patient was given GI cocktail, IV fluids, magnesium replacement, Bentyl, Pepcid and Carafate. Patient with chronic abdominal pain requesting Dilaudid. Patient demanded I talked to her GI doctor Dr. Mojica who agreed with nonnarcotic management including Bentyl. Patient upset with choice of medications And state she will go to [place]. Prior to discharge, patient was resting comfortably in bed - upset but comfortable appearing. Course of stay unchanged. Discussed physical exam and diagnostic tests with patient. Questions answered and patient is agreeable to discharge with close follow up with Primary Care Physician/GI. Instructed to return to Emergency Department if symptoms worsen. - Lab Data Result diagrams: 12/04/16 15:10 12/04/16 15:10 Lab Results 12/04/16 12/04/16 12/04/16 Range/Units 15:00 15:10 15:10 WBC 7.9 (3.8-10.6) k/uL RBC 3.91 (3.80-5.40) m/uL Hgb 12.4 (11.4-16.0) gm/dL Hct 37.5 (34.0-46.0) % MCV 95.9 (80.0-100.0) fL MCH 31.8 (25.0-35.0) pg MCHC 33.2 (31.0-37.0) g/dL RDW 14.1 (11.5-15.5) % Plt Count 354 (150-450) k/uL Neutrophils % 55 % Lymphocytes % 37 % Monocytes % 4 % Eosinophils % 0 % Basophils % 1 % Neutrophils # 4.3 (1.3-7.7) k/uL Lymphocytes # 2.9 (1.0-4.8) k/uL Monocytes # 0.3 (0-1.0) k/uL Eosinophils # 0.0 (0-0.7) k/uL Basophils # 0.1 (0-0.2) k/uL Sodium 141 (137-145) mmol/L Potassium 3.9 (3.5-5.1) mmol/L Chloride 105 (98-107) mmol/L Carbon Dioxide 23 (22-30) mmol/L Anion Gap 13 mmol/L BUN 11 (7-17) mg/dL Creatinine 0.69 (0.52-1.04) mg/dL Est GFR (MDRD) Af Amer >60 (>60 ml/min/1.73 sqM) Est GFR (MDRD) Non-Af >60 (>60 ml/min/1.73 sqM) Glucose 89 (74-99) mg/dL Calcium 9.9 (8.4-10.2) mg/dL Magnesium 1.4 L (1.6-2.3) mg/dL Total Bilirubin 0.7 (0.2-1.3) mg/dL AST 21 (14-36) U/L ALT 25 (9-52) U/L Alkaline Phosphatase 80 (38-126) U/L Total Protein 7.2 (6.3-8.2) g/dL Albumin 4.2 (3.5-5.0) g/dL Lipase 96 (23-300) U/L Urine Color Yellow Urine Appearance Clear (Clear) Urine pH 6.5 (5.0-8.0) Ur Specific [place] 1.033 (1.001-1.035) Urine Protein Trace H (Negative) Urine Glucose (UA) Negative (Negative) Urine Ketones Trace H (Negative) Urine Blood Negative (Negative) Urine Nitrite Negative (Negative) Urine Bilirubin Negative (Negative) Urine Urobilinogen <2.0 (<2.0) mg/dL Ur Leukocyte Esterase Negative (Negative) Rate 77. NSR. No ST-T wave changes. [place] internal normal . QRS interval normal. QTc duration normal. Disposition Clinical Impression: Chronic abdominal pain, Nausea vomiting and diarrhea, Hypomagnesemia Disposition: HOME SELF-CARE Condition: Good Instructions: Abdominal Pain (ED), Hypomagnesemia (ED), Acute Nausea and Vomiting (ED), Acute Diarrhea (ED) Prescriptions: Dicyclomine [Bentyl] 20 mg PO QID #28 tablet Referrals: Wilner Hernández MD [Primary Care Provider] - 1-2 days Jason Mojica MD [STAFF PHYSICIAN] - 1-2 days
[2016-12-04 15:30] LABS: Appearance,Urine Clear (Clear); Bilirubin,Urine Negative (Negative); Glucose,Urine (UA) Negative (Negative); Ketones,Urine Trace (Negative); Leukocyte Esterase,Urine Negative (Negative); Nitrite,Urine Negative (Negative); PH, Urine 6.5 (5.0-8.0); Protein,Urine Trace (Negative); Specific Gravity,Urine 1.033 (1.001-1.035); UA Billing (MACRO vs. MICRO) CHEM; Urobilinogen,Urine <2.0 mg/dL (<2.0)
[2016-12-04 15:33] LABS: Basophils # (A) 0.1 k/uL (0-0.2); Basophils % (A) 1 %; CH 32.8; CHCM 34.4; Eosinophils % (A) 0 %; HCT 37.5 % (34.0-46.0); HDW 2.69; HGB 12.4 gm/dL (11.4-16.0); Luc # (Auto) 0.29; Luc % (Auto) 4; Lymphocytes # (A) 2.9 k/uL (1.0-4.8); Lymphocytes % (A) 37 %; MCH 31.8 pg (25.0-35.0); MCHC 33.2 g/dL (31.0-37.0); MCV 95.9 fL (80.0-100.0); Mean Platelet Volume 7.7; Monocytes # (A) 0.3 k/uL (0-1.0); Monocytes % (A) 4 %; Neutrophils # (A) 4.3 k/uL (1.3-7.7); Neutrophils % (A) 55 %; RBC 3.91 m/uL (3.80-5.40); RDW 14.1 % (11.5-15.5); WBC 7.9 k/uL (3.8-10.6); WBC (Perox) 7.98
[2016-12-04 15:41] LABS: ALT 25 U/L (9-52); AST 21 U/L (14-36); Alkaline Phosphatase 80 U/L (38-126); Anion Gap 13 mmol/L; Blood Urea Nitrogen 11 mg/dL (7-17); Calcium 9.9 mg/dL (8.4-10.2); Carbon Dioxide 23 mmol/L (22-30); Chloride 105 mmol/L (98-107); Glucose 89 mg/dL (74-99); Magnesium 1.4 mg/dL (1.6-2.3); Non-African American GFR(MDRD) >60 (>60 ml/min/1.73 sqM); Potassium 3.9 mmol/L (3.5-5.1); Sodium 141 mmol/L (137-145); Total Bilirubin 0.7 mg/dL (0.2-1.3); Total Protein 7.2 g/dL (6.3-8.2)
[2016-12-04] MEDS ORDERED: MAGNESIUM OXIDE 400 MG TAB PO STA (16:20)
[2016-12-04] MEDS ORDERED: DICYCLOMINE 10 MG/ML 2 ML AMP IM STA (16:56)
[2016-12-04] MEDS ORDERED: SUCRALFATE 1 GM TAB PO STA (16:56)
[2016-12-04 17:14] VITALS: BP 129/81; PULSE 75; TEMP 98.9
== END 2016-12-04 17:18 | disposition home or self-care (01) ==
LOC: EC 12:30
DX: R10.9 Unspecified abdominal pain (principal); R11.2 Nausea with vomiting, unspecified; R19.7 Diarrhea, unspecified; E83.42 Hypomagnesemia; G89.29 Other chronic pain; K21.9 Gastro-esophageal reflux disease without esophagitis; F17.200 Nicotine dependence, unspecified, uncomplicated; Z79.899 Other long term (current) drug therapy; Z88.6 Allergy status to analgesic agent; Z87.11 Personal history of peptic ulcer disease; Z87.19 Personal history of other diseases of the digestive system; Z90.49 Acquired absence of other specified parts of digestive tract
CPT/HCPCS: 99284; 96374; 96361; 96372; 36415; 93005; 80053; 83690; 83735; 85025; 81003; J0500

== ENCOUNTER 2017-02-09 11:33 | Emergency (ER) | payer OTHER ==
[2017-02-09] MEDS ORDERED: RX INFO: IV CONTRAST WAS GIVEN 1 EACH MISC MISCELLANE PRN (13:43)
[2017-02-09] MEDS ORDERED: SODIUM CHLORIDE 0.9% 1,000 ML IV STA ×2 (13:43)
[2017-02-09] MEDS ORDERED: ONDANSETRON 4 MG/2 ML VIAL IVP STA (13:43)
[2017-02-09] MEDS ORDERED: HYDROmorphone 1 MG/ML 1 ML SYRINGE IVP STA ×2 (13:43→16:33)
[2017-02-09 14:06] LABS: Appearance,Urine Clear (Clear); Bilirubin,Urine Negative (Negative); Glucose,Urine (UA) Negative (Negative); Ketones,Urine Negative (Negative); Leukocyte Esterase,Urine Negative (Negative); Nitrite,Urine Negative (Negative); Protein,Urine Negative (Negative); Specific Gravity,Urine 1.016 (1.001-1.035); UA Billing (MACRO vs. MICRO) CHEM; Urobilinogen,Urine <2.0 mg/dL (<2.0)
[2017-02-09 14:13] LABS: ALT 19 U/L (9-52); AST 21 U/L (14-36); Alkaline Phosphatase 73 U/L (38-126); Amylase 57 U/L (30-110); Anion Gap 8 mmol/L; Blood Urea Nitrogen 11 mg/dL (7-17); Calcium 9.5 mg/dL (8.4-10.2); Carbon Dioxide 24 mmol/L (22-30); Chloride 106 mmol/L (98-107); Glucose 89 mg/dL (74-99); Non-African American GFR(MDRD) >60 (>60 ml/min/1.73 sqM); Sodium 138 mmol/L (137-145); Total Bilirubin 0.6 mg/dL (0.2-1.3); Total Protein 7.2 g/dL (6.3-8.2)
[2017-02-09 14:20] LABS: Basophils % (A) 1 %; CH 32.2; CHCM 34.1; Eosinophils # (A) 0.1 k/uL (0-0.7); Eosinophils % (A) 2 %; HDW 2.78; Luc # (Auto) 0.11; Luc % (Auto) 2; Lymphocytes # (A) 2.5 k/uL (1.0-4.8); Lymphocytes % (A) 37 %; MCH 32.5 pg (25.0-35.0); MCHC 34.2 g/dL (31.0-37.0); MCV 94.9 fL (80.0-100.0); Mean Platelet Volume 6.8; Monocytes # (A) 0.2 k/uL (0-1.0); Monocytes % (A) 4 %; Neutrophils # (A) 3.6 k/uL (1.3-7.7); Neutrophils % (A) 55 %; RBC 4.01 m/uL (3.80-5.40); WBC 6.6 k/uL (3.8-10.6); WBC (Perox) 6.42
--- NOTE | 2017-02-09 14:29 | XR ---
EXAMINATION TYPE: XR KUB DATE OF EXAM: 02/09/2017 2:23 PM CLINICAL DATA: 41 year-old female with abdominal pain, [facility] COMPARISON: 08/25/2016 FINDINGS: Lung bases are clear. Cholecystectomy clips. No evidence for free intraperitoneal air. No dilated small bowel or air-fluid levels. Scattered air and stool seen throughout the colon extendi ng distally into the rectum. There is moderate stool burden. No suspicious calcifications identified. IMPRESSION: Moderate stool burden. No evidence of bowel obstruction or free intraperitoneal air.
--- NOTE | 2017-02-09 15:23 | ED ---
General Adult HPI - General Chief complaint: Abdominal Pain Stated complaint: ABDOMINAL PAIN, POSS BLOCKAGE Time Seen by Provider: 02/09/17 13:32 Source: patient, RN notes reviewed Mode of arrival: ambulatory Limitations: no limitations - History of Present Illness Initial comments: Patient 41-year-old female who presents emergency room today with a chief complaint of abdominal pain over the last 3 days. She states she did follow up with her GI specialist yesterday. She states that she was advised that if symptoms increase that she come to the emergency room to rule out possible obstruction. She does admit that she did have a bowel movement today. She states is normal for her. She does admit that her abdomen does feel somewhat distended. It is having increased pain. Does admit some nausea. Denies any other complaints or symptoms. Patient denies any recent fever, chills, shortness of breath, chest pain, numbness or tingling, dysuria or hematuria, constipation or diarrhea, headaches or visual changes, or any other complaints. - Related Data Previous Rx's Medication Instructions Recorded Omeprazole [PriLOSEC] 40 mg PO BID #60 capsule. 04/09/15 HYDROcodone/APAP 5-325MG [[place] 1 tab PO Q8H PRN #30 tab 10/11/16 5-325] Allergies Allergy/AdvReac Type Severity Reaction Status Date / Time ibuprofen [From Motrin] Allergy Rash/Hives Verified 02/09/17 13:24 Review of Systems ROS Statement: Those systems with pertinent positive or pertinent negative responses have been documented in the HPI. ROS Other: All systems not noted in ROS Statement are negative. Past Medical History Past Medical History: GERD/Reflux, Syncope Additional Past Medical History / Comment(s): Recent admission to [facility] 01/19/16 with abdominal pain. Other HX: PUD, hiatal hernia, ovarian cyst, anemia, nonsustained Vtach, DJD,back pain due to fracture L5 FX AND BROKE TAILBONE, SINUS PROBLEMS, multiple kidney infections History of Any Multi-Drug Resistant Organisms: None Reported Past Surgical History: Section, Cholecystectomy, Hysterectomy, Orthopedic Surgery, Tubal Ligation Additional Past Surgical History / Comment(s): Laparoscopic surgery where bowel was nicked so had emergency bowel surgery, R breast biopsy-NEG, LT hand surgery- CYST REMOVED, x2. Past Anesthesia/Blood Transfusion Reactions: No Reported Reaction Additional Past Anesthesia/Blood Transfusion Reaction / Comment(s): CLAUSTERPHOBIA. Pt had 2 units blood transfused when she had laparoscopic surgery and bowel was nicked. Past Psychological History: No Psychological Hx Reported Additional Psychological History / Comment(s): Pt lives with her mom and 2 children ages 14 and 21yrs. She is normally independent. Smoking Status: Current every day smoker Past Alcohol Use History: None Reported Additional Past Alcohol Use History / Comment(s): Pt started smoking in 1992. She quit during her pregnancies. Pt. states she has been trying to quit smoking , states she smokes 1/2 a pack a day Past Drug Use History: None Reported - Past Family History Sister(s) Additional Family Medical History / Comment(s): Irregular HR. Full Hysterectomy. Ovarian CA. Gallbladder. Kidney issues Father Family Medical History: Cancer Additional Family Medical History / Comment(s): BLADDER CANCER SPREAD TO KIDNEY AND PROSTATE Mother Family Medical History: COPD, GERD/Reflux, Thyroid Disorder Additional Family Medical History / Comment(s): Vertigo General Exam - General Exam Comments Initial Comments: General: The patient is awake and alert, in no distress, and does not appear acutely ill. Eye: Pupils are equal, round and reactive to light, extra-ocular movements are intact. No nystagmus. There is normal conjunctiva bilaterally. No signs of icterus. Ears, nose, mouth and throat: There are moist mucous membranes and no oral lesions. Neck: The neck is supple, there is no tenderness or JVD. Cardiovascular: There is a regular rate and rhythm. No murmur, rub or gallop is appreciated. Respiratory: Lungs are clear to auscultation, respirations are non-labored, breath sounds are equal. No wheezes, stridor, rales, or rhonchi. Gastrointestinal: Mild tenderness diffusely throughout abdomen. No rebound tenderness. No guarding. No CVA tenderness. Musculoskeletal: Normal ROM, no tenderness. Strength 5/5. Sensation intact. Pulses equal bilaterally 2+. Neurological: A&O x 3. CN II-XII intact, There are no obvious motor or sensory deficits. Coordination appears grossly intact. Speech is normal. Skin: Skin is warm and dry and no rashes or lesions are noted. Psychiatric: Cooperative, appropriate mood & affect, normal judgment. Limitations: no limitations Course Vital Signs 02/09/17 02/09/17 12:31 15:53 Temperature 98.1 F Pulse Rate 80 71 Respiratory 20 18 Rate Blood Pressure 132/97 124/85 O2 Sat by Pulse 98 98 Oximetry Medical Decision Making - Medical Decision Making This reexamined at this time shows no signs of distress. Patient's labs been reviewed. Patient's CT of the abdomen does show thickened mucosa of the stomach. Case discussed with GI and call Dr. Donato who recommends outpatient follow-up with Dr. Sims. Patient will also be given information for Dr Shahid who she has seen in the past. - Lab Data Result diagrams: 02/09/17 13:46 02/09/17 13:46 Lab Results 02/09/17 02/09/17 02/09/17 Range/Units 13:45 13:46 13:46 WBC 6.6 (3.8-10.6) k/uL RBC 4.01 (3.80-5.40) m/uL Hgb 13.0 (11.4-16.0) gm/dL Hct 38.0 (34.0-46.0) % MCV 94.9 (80.0-100.0) fL MCH 32.5 (25.0-35.0) pg MCHC 34.2 (31.0-37.0) g/dL RDW 14.0 (11.5-15.5) % Plt Count 379 (150-450) k/uL Neutrophils % 55 % Lymphocytes % 37 % Monocytes % 4 % Eosinophils % 2 % Basophils % 1 % Neutrophils # 3.6 (1.3-7.7) k/uL Lymphocytes # 2.5 (1.0-4.8) k/uL Monocytes # 0.2 (0-1.0) k/uL Eosinophils # 0.1 (0-0.7) k/uL Basophils # 0.0 (0-0.2) k/uL Sodium 138 (137-145) mmol/L Potassium 5.0 (3.5-5.1) mmol/L Chloride 106 (98-107) mmol/L Carbon Dioxide 24 (22-30) mmol/L Anion Gap 8 mmol/L BUN 11 (7-17) mg/dL Creatinine 0.71 (0.52-1.04) mg/dL Est GFR (MDRD) Af Amer >60 (>60 ml/min/1.73 sqM) Est GFR (MDRD) Non-Af >60 (>60 ml/min/1.73 sqM) Glucose 89 (74-99) mg/dL Calcium 9.5 (8.4-10.2) mg/dL Total Bilirubin 0.6 (0.2-1.3) mg/dL AST 21 (14-36) U/L ALT 19 (9-52) U/L Alkaline Phosphatase 73 (38-126) U/L Total Protein 7.2 (6.3-8.2) g/dL Albumin 4.4 (3.5-5.0) g/dL Amylase 57 (30-110) U/L Lipase 138 (23-300) U/L Urine Color Yellow Urine Appearance Clear (Clear) Urine pH 7.0 (5.0-8.0) Ur Specific [place] 1.016 (1.001-1.035) Urine Protein Negative (Negative) Urine Glucose (UA) Negative (Negative) Urine Ketones Negative (Negative) Urine Blood Negative (Negative) Urine Nitrite Negative (Negative) Urine Bilirubin Negative (Negative) Urine Urobilinogen <2.0 (<2.0) mg/dL Ur Leukocyte Esterase Negative (Negative) Disposition Clinical Impression: Abdominal pain Disposition: TRANSFER TO PSYCH HOSP/UNIT Condition: Good Instructions: Abdominal Pain (ED) Additional Instructions: Please use medication as discussed. Please follow-up with family doctor/GI/ surgeon in the next 2 days of symptoms have not improved. Please return to emergency room if the symptoms increase or worsen or for any other concerns. Referrals: None,Stated [Primary Care Provider] - 1-2 days Jason Mojica MD [STAFF PHYSICIAN] - 1-2 days Chris Shahid MD [Medical Doctor] - 1-2 days Time of Disposition: 16:57
--- NOTE | 2017-02-09 15:40 | CT ---
EXAMINATION TYPE: CT abdomen pelvis wo/w con DATE OF EXAM: 02/09/2017 COMPARISON: Prior abdomen same date, prior CT abdomen pelvis one January 2016 HISTORY: Patient complains of generalized abdominal pain, nausea, vomiting (once), and constipation. CT DLP: 1939 mGycm Automated exposure control for dose reduction was used. TECHNIQUE: Helical acquisition of images was performed from the lung bases through the pelvis. CONTRAST: Performed without Oral Contrast and with IV Contrast, patient injected with 100 mL of Omnipaque 300. FINDINGS: LUNG BASES: There is an indeterminate pulmonary nodule on axial image 1 in the right lower lobe measu ring only 4 to 5 mm in size. Follow-up suggested. LIVER/GB: Gallbladder is absent. No evident liver mass. The liver is enlarged however. PANCREAS: No significant abnormality is seen. SPLEEN: No significant abnormality is seen. ADRENALS: No significant abnormality is seen. KIDNEYS: The right kidney shows deformity of shape and is stable compared to prior exam, left kidney is unremarkable, there are no renal calculi or hydronephrosis, no ureteral calculus is evident FREE AIR: No free air is visualized. RETROPERITONEAL ADENOPATHY: None visualized REPRODUCTIVE ORGANS: Uterus is absent. Previously identified cystic left ovarian mass is decreased in size. Right ovary is unremarkable. URINARY BLADDER: No significant abnormality is seen. PELVIC ADENOPATHY: None visualized. OSSEOUS STRUCTURES: No significant abnormality is seen. BOWEL: Retained fecal debris present throughout much of the distribution of the colon. Gastric wall appears thickened which is nonspecific. OTHER: No ascites. IMPRESSION: THICKENING OF THE GASTRIC WALL IS NONSPECIFIC, CORRELATE AND CONSIDER ENDOSCOPY INDICATED. INDETER MINATE PULMONARY NODULE, FOLLOW-UP RECOMMENDED. POSTOP CHANGES. CORRELATE FOR FECAL STASIS. IMPROVEME NT IN PATIENT'S LEFT OVARIAN CYST.
[2017-02-09] MEDS ORDERED: MAG HYDROX/AL HYDROX/SIMETH 30 ML, HYOSCYAMINE ELIXIR 10 ML, CIMETIDINE HCL 300 MG, LID... PO STA ×4 (16:55)
[2017-02-09 17:18] VITALS: BP 130/65; PULSE 68; RESP 16; TEMP 98.8
== END 2017-02-09 17:18 ==
LOC: EC 11:33
DX: R10.9 Unspecified abdominal pain (principal); R11.0 Nausea; R14.0 Abdominal distension (gaseous); F17.200 Nicotine dependence, unspecified, uncomplicated; Z88.6 Allergy status to analgesic agent; Z83.79 Family history of other diseases of the digestive system; Z90.49 Acquired absence of other specified parts of digestive tract
CPT/HCPCS: 36415; 80053; 82150; 83690; 85025; 81003; 74000; 74178; 99285; 96374; 96376; 96375; 96361 ×3; J2405; J1170; Q9967

== ENCOUNTER 2017-03-05 11:11 | Day surgery (SDC) | payer OTHER ==
[2017-03-01 11:33] VITALS: BMI 21.4
[~2017-03-05 11:11] MED LIST: LACTATED RINGERS 1,000 ML IV SCH
[2017-03-05 11:34] VITALS: RESP 16; TEMP 98.1
[2017-03-05 11:44] LABS: Glucose,Whole Blood 85 mg/dL (75-99)
[2017-03-05] MEDS ORDERED: fentaNYL (PF) 50 MCG/ML 2 ML AMP IVP ONE (11:50)
[2017-03-05] MEDS ORDERED: LIDOCAINE 1% INJ 10MG/ML (20 ML MDV) ONE (12:26)
[2017-03-05] MEDS ORDERED: GLYCOPYRROLATE 0.2 MG/ML 2 ML VIAL ONE (12:26)
[2017-03-05] MEDS ORDERED: PROPOFOL 10 MG/ML 20 ML VIAL IV ONE (12:26)
--- NOTE | 2017-03-05 13:16 | P.PCN ---
Date of Procedure: 03/05/17 Preoperative Diagnosis: Postoperative Diagnosis: Procedure(s) Performed: Procedure: Esophagogastroduodenoscopy and esophageal dilation of a postbulbar stricture using the [employer] pyloric balloon dilator size 12-15 mm Preoperative diagnosis: Abdominal pain and history of duodenal stricture. Postoperative diagnosis: 1. Small hiatal hernia with no obvious esophagitis or complicated reflux disease. 2. Antral gastritis. 3. Post bulbar stricture allowing the advancement of the endoscope, dilated up to 15 mm using the [employer] pyloric balloon dilator size 12-15 mm. Preparation sedation: Were provided by anesthesia. Brief clinical history: The patient is a 41-year-old female with history of duodenal ulcer and multiple hospitalizations in the past for abdominal pains with evidence of early stricture, was evaluated in September because of abdominal pain and atypical chest pains as well as vomiting. The patient was found to have a very small sliding hiatal hernia and mild antral gastritis and deformed duodenal bulb with pseudodiverticula and retained mushroom which was removed with the snare. There was a benign stricture in the immediate post bulbar area just allowing the advancement of the endoscope with no evidence of ulcerations. Biopsies from the antrum showed negative H. pylori. The patient continues to be symptomatic and this evaluation today is scheduled to dilated the post bulbar area and therapy based on the findings. Procedure: With the patient on her left lateral decubitus position and after informed consent and adequate sedation, I passed the Olympus-GIF 160 video upper endoscope through the cricopharyngeus down the esophagus. GE junction was around 37 cm from the incisors and there was a small sliding hiatal hernia. The esophagus did not show any obvious esophagitis or any strictures or Armendariz's esophagus. The endoscope was then passed into the stomach which was insufflated with air and inspected in detail including the retroflex view in the cardia. There was some mottling and erythema in the antrum and the immediate prepyloric area and occasionally erosions but no ulcers or bleeding. Pyloric channel did not show any ulcers. Duodenal bulb was somewhat deformed but there was no ulcers or active bleeding. There was a benign-appearing stricture in the immediate post bulbar area that did not impede advancement of the endoscope. However, because of her symptoms, I proceeded to dilate that area using the [employer] pyloric balloon dilator size 12-15 mm. The balloon was advanced through the operating channel of the endoscope and centered at the level of the stricture then inflated up to 15 mm in the usual fashion. The patient tolerated the procedure well and did not have any immediate complications. Plan: The patient was reassured. Will allow clear liquids today and she can advance her diet tomorrow and further plans will be made based on her course. Would keep you updated on her progress. Implants: Indications for Procedure: Operative Findings: Description of Procedure:
[2017-03-05 13:43] VITALS: BP 104/73; PULSE 73
== END 2017-03-05 14:08 | disposition home or self-care (01) ==
LOC: ORWHC2ENDO 11:11
DX: K31.5 Obstruction of duodenum (principal); K29.60 Other gastritis without bleeding; K44.9 Diaphragmatic hernia without obstruction or gangrene; Z88.6 Allergy status to analgesic agent; Z79.899 Other long term (current) drug therapy; F17.200 Nicotine dependence, unspecified, uncomplicated
CPT/HCPCS: 43245; J2001; J3010; J2704; C1727; 44799

== ENCOUNTER 2017-05-07 11:47 | Inpatient (IN) | payer OTHER ==
[2017-05-07] MEDS ORDERED: ONDANSETRON 4 MG/2 ML VIAL IVP STA (13:06)
[2017-05-07] MEDS ORDERED: KETOROLAC 30 MG/ML 1 ML VIAL IVP STA (13:06)
[2017-05-07] MEDS: SODIUM CHLORIDE 0.9% 1,000 ML IV ONE ×2 (13:16→16:52)
[2017-05-07 13:31] LABS: Anion Gap 11 mmol/L; Blood Urea Nitrogen 12 mg/dL (7-17); Calcium 9.2 mg/dL (8.4-10.2); Carbon Dioxide 22 mmol/L (22-30); Chloride 108 mmol/L (98-107); Glucose 88 mg/dL (74-99); Non-African American GFR(MDRD) >60 (>60 ml/min/1.73 sqM); Potassium 3.9 mmol/L (3.5-5.1); Sodium 141 mmol/L (137-145)
[2017-05-07 13:39] LABS: Basophils % (A) 0 %; CH 33.6; CHCM 33.8; Eosinophils # (A) 0.1 k/uL (0-0.7); Eosinophils % (A) 1 %; HCT 38.1 % (34.0-46.0); HDW 2.45; Luc # (Auto) 0.15; Luc % (Auto) 1; Lymphocytes # (A) 1.2 k/uL (1.0-4.8); Lymphocytes % (A) 9 %; MCH 34.1 pg (25.0-35.0); MCHC 34.1 g/dL (31.0-37.0); MCV 99.9 fL (80.0-100.0); Macrocytosis Slight; Mean Platelet Volume 7.8; Monocytes # (A) 0.5 k/uL (0-1.0); Monocytes % (A) 4 %; Neutrophils # (A) 11.1 k/uL (1.3-7.7); Neutrophils % (A) 85 %; RBC 3.82 m/uL (3.80-5.40); RDW 14.7 % (11.5-15.5); WBC (Perox) 13.57
[2017-05-07 13:45] LABS: Appearance,Urine Cloudy (Clear); Bacteria,Urine Few /hpf; Bilirubin,Urine Negative (Negative); Glucose,Urine (UA) Negative (Negative); Ketones,Urine 1+ (Negative); Leukocyte Esterase,Urine Moderate (Negative); Mucus,Urine Few /hpf; Nitrite,Urine Negative (Negative); PH, Urine 5.5 (5.0-8.0); Particle Count 6224; Protein,Urine 1+ (Negative); RBC,Urine 9 /hpf (0-5); Specific Gravity,Urine 1.028 (1.001-1.035); Squamous Epithelial Cell,Urine 2 /hpf (0-4); UA Billing (MACRO vs. MICRO) MICRO; Urobilinogen,Urine <2.0 mg/dL (<2.0); WBC,Urine 83 /hpf (0-5)
[2017-05-07] MEDS ORDERED: MORPHINE SULFATE 4 MG/ML SYRINGE IVP STA (13:56)
--- NOTE | 2017-05-07 14:59 | ED ---
Back Pain HPI - General Chief Complaint: Back Pain/Injury Stated Complaint: back pain Source: patient Limitations: no limitations - History of Present Illness Initial Comments: 41-year-old female with past medical history of GERD, CVA, thyroid disorder, degenerative disc disease, and recurrent urinary tract infections as a child presented for evaluation of dysuria, flank pain, fevers, myalgia, nausea or vomiting. She states her symptoms started about 3 days ago and the fever started yesterday with a T-max of 11.6F. She states the symptoms feel similar to when she was a child and was having urinary tract infections and a very frequent rate. After the liver and her child she states that she didn't have as many urinary tract infections however this is the first episode since then. - Related Data Previous Rx's Medication Instructions Recorded Omeprazole [PriLOSEC] 40 mg PO BID #60 capsule. 04/09/15 HYDROcodone/APAP 5-325MG [[place] 1 tab PO Q8H PRN #30 tab 10/11/16 5-325] Allergies Allergy/AdvReac Type Severity Reaction Status Date / Time ibuprofen [From Motrin] Allergy Rash/Hives Verified 05/07/17 13:30 Review of Systems ROS Statement: Those systems with pertinent positive or pertinent negative responses have been documented in the HPI. ROS Other: All systems not noted in ROS Statement are negative. Constitutional: Reports: fever, chills Eyes: Denies: eye pain, eye discharge ENT: Denies: ear pain, throat pain Respiratory: Denies: cough, dyspnea Cardiovascular: Denies: chest pain, palpitations Endocrine: Denies: fatigue, heat or cold intolerance Gastrointestinal: Reports: nausea, vomiting. Denies: abdominal pain, diarrhea, constipation Genitourinary: Reports: urgency, dysuria, frequency Musculoskeletal: Reports: back pain (Right flank pain). Denies: joint swelling , arthralgia Skin: Denies: rash, lesions Neurological: Denies: headache, weakness Psychiatric: Denies: anxiety, depression Hematological/Lymphatic: Denies: easy bleeding, easy bruising Past Medical History Past Medical History: GERD/Reflux, Syncope, Thyroid Disorder Additional Past Medical History / Comment(s): hiatal hernia, ovarian cyst, hx. arrythmia @times, DJD,back pain due to fracture L5 FX AND BROKE TAILBONE, SINUS PROBLEMS, bloating, pain w/eating, N/V, recent CT scan shows spot on lung-dr monitoring History of Any Multi-Drug Resistant Organisms: None Reported Past Surgical History: Section, Cholecystectomy, Hysterectomy, Orthopedic Surgery, Tubal Ligation Additional Past Surgical History / Comment(s): Laparoscopic surgery where bowel was nicked so had emergency bowel surgery, R breast biopsy, LT hand surgery- CYST REMOVED, x2. Past Anesthesia/Blood Transfusion Reactions: No Reported Reaction Additional Past Anesthesia/Blood Transfusion Reaction / Comment(s): CLAUSTROPHOBIA Past Psychological History: No Psychological Hx Reported Smoking Status: Current every day smoker Past Alcohol Use History: Occasional Past Drug Use History: None Reported - Past Family History Sister(s) Additional Family Medical History / Comment(s): Irregular HR. Full Hysterectomy. Ovarian CA. Gallbladder. Kidney issues Father Family Medical History: Cancer Additional Family Medical History / Comment(s): BLADDER CANCER SPREAD TO KIDNEY AND PROSTATE Mother Family Medical History: COPD, GERD/Reflux, Thyroid Disorder Additional Family Medical History / Comment(s): Vertigo General Exam Limitations: no limitations General appearance: alert, in distress (Appears to be in pain) Head exam: Present: atraumatic, normocephalic, normal inspection Eye exam: Present: normal appearance, PERRL, EOMI. Absent: scleral icterus, conjunctival injection, periorbital swelling ENT exam: Present: normal exam, mucous membranes moist Neck exam: Present: normal inspection. Absent: tenderness, meningismus, lymphadenopathy Respiratory exam: Present: normal lung sounds bilaterally. Absent: respiratory distress, wheezes, rales, rhonchi, stridor Cardiovascular Exam: Present: regular rate, normal rhythm, normal heart sounds. Absent: systolic murmur, diastolic murmur, rubs, gallop, clicks GI/Abdominal exam: Present: soft, normal bowel sounds. Absent: distended, tenderness, guarding, rebound, rigid Rectal exam: Present: deferred Extremities exam: Present: normal inspection, full ROM, normal capillary refill. Absent: tenderness, pedal edema, joint swelling, calf tenderness Back exam: Present: full ROM, tenderness, CVA tenderness (R) Neurological exam: Present: alert, oriented X3, CN II-XII intact Psychiatric exam: Present: normal affect, normal mood Skin exam: Present: warm, dry, intact, normal color. Absent: rash Course Vital Signs 05/07/17 05/07/17 05/07/17 11:58 13:00 14:10 Temperature 100.3 F H 99.6 F Pulse Rate 97 80 Respiratory 18 18 Rate Blood Pressure 102/65 105/66 O2 Sat by Pulse 99 95 Oximetry Medical Decision Making - Medical Decision Making 5-year-old female with past medical history of recurrent urinary tract infections this child presented for evaluation of right flank pain for the last 3 days with associated fever starting yesterday with a T-max of 101.6 degrees Fahrenheit. On physical examination she appears to be in mild distress and has tenderness along the right paraspinal CVA tenderness. Concern for pyelonephritis over kidney stones and she has no past medical history of ureterolithiasis. Labs revealed a leukocytosis and urinary tract infection and coupled with her right flank pain and fever will diagnosed as pyelonephritis. The patient was informed of these results and agreed with plan to admit for further treatment and evaluation. Dr. Bruno accepted the admission without any further requests. Admission order placed, antibiotic started, and transition orders submitted. - Lab Data Result diagrams: 05/07/17 12:55 05/07/17 12:55 Lab Results 05/07/17 05/07/17 05/07/17 Range/Units 12:50 12:55 12:55 WBC 13.0 H (3.8-10.6) k/uL RBC 3.82 (3.80-5.40) m/uL Hgb 13.0 (11.4-16.0) gm/dL Hct 38.1 (34.0-46.0) % MCV 99.9 (80.0-100.0) fL MCH 34.1 (25.0-35.0) pg MCHC 34.1 (31.0-37.0) g/dL RDW 14.7 (11.5-15.5) % Plt Count 296 (150-450) k/uL Neutrophils % 85 % Lymphocytes % 9 % Monocytes % 4 % Eosinophils % 1 % Basophils % 0 % Neutrophils # 11.1 H (1.3-7.7) k/uL Lymphocytes # 1.2 (1.0-4.8) k/uL Monocytes # 0.5 (0-1.0) k/uL Eosinophils # 0.1 (0-0.7) k/uL Basophils # 0.0 (0-0.2) k/uL Macrocytosis Slight Sodium 141 (137-145) mmol/L Potassium 3.9 (3.5-5.1) mmol/L Chloride 108 H (98-107) mmol/L Carbon Dioxide 22 (22-30) mmol/L Anion Gap 11 mmol/L BUN 12 (7-17) mg/dL Creatinine 0.76 (0.52-1.04) mg/dL Est GFR (MDRD) Af Amer >60 (>60 ml/min/1.73 sqM) Est GFR (MDRD) Non-Af >60 (>60 ml/min/1.73 sqM) Glucose 88 (74-99) mg/dL Calcium 9.2 (8.4-10.2) mg/dL Urine Color Yellow Urine Appearance Cloudy H (Clear) Urine pH 5.5 (5.0-8.0) Ur Specific [place] 1.028 (1.001-1.035) Urine Protein 1+ H (Negative) Urine Glucose (UA) Negative (Negative) Urine Ketones 1+ H (Negative) Urine Blood Negative (Negative) Urine Nitrite Negative (Negative) Urine Bilirubin Negative (Negative) Urine Urobilinogen <2.0 (<2.0) mg/dL Ur Leukocyte Esterase Moderate H (Negative) Urine RBC 9 H (0-5) /hpf Urine WBC 83 H (0-5) /hpf Ur Squamous Epith Cells 2 (0-4) /hpf Urine Bacteria Few H (None) /hpf Hyaline Casts 4 H (0-2) /lpf Urine Mucus Few H (None) /hpf Disposition Clinical Impression: Pyelonephritis Disposition: ADMITTED IP TO THIS HOSP Referrals: Wilner Hernández MD [Primary Care Provider] - 1-2 days Decision to Admit Reason: Admit from [facility] Decision Date: 05/07/17 Decision Time: 14:59
[2017-05-07] MEDS ORDERED: NALOXONE 0.4 MG/ML 1 ML VIAL IV PRN (15:00)
[2017-05-07] MEDS ORDERED: ONDANSETRON 4 MG/2 ML VIAL IVP PRN (15:00)
[2017-05-07] MEDS: ACETAMINOPHEN TAB 325 MG TAB PO PRN (17:23)
[2017-05-07] MEDS: MORPHINE SULFATE 4 MG/ML SYRINGE IV PRN ×2 (17:57→22:21)
--- NOTE | 2017-05-07 18:03 | US ---
EXAMINATION TYPE: US kidneys/renal and bladder DATE OF EXAM: 05/07/2017 COMPARISON: NONE CLINICAL HISTORY: pyelonephritis. RLQ pain fever hematuria EXAM MEASUREMENTS: Right Kidney: 10.6 x 3.0 x 4.2 cm Left Kidney: 11.6 x 5.3 x 5.3 cm Right Kidney: No hydronephrosis or masses seen Left Kidney: No hydronephrosis or masses seen Bladder: wnl Bilateral Jets seen: Yes left jet only There is no evidence for hydronephrosis at this point in time. No nephrolithiasis is seen. No arabella s are identified. The urinary bladder is anechoic. Left ureteral jet seen. IMPRESSION: Right kidney is smaller than left with some mild cortical thinning for the patient's age. This could relate to atrophy. We could not see a ureteral jet in the urinary bladder on the right side. No evide nce of renal obstruction or mass.
[2017-05-07] MEDS ORDERED: NICOTINE 21MG/24HR PATCH TRANSDERM SCH (19:15)
[2017-05-07] MEDS: KETOROLAC 30 MG/ML 1 ML VIAL IVP PRN (19:48)
--- NOTE | 2017-05-07 22:06 | P.HPIM ---
History of Present Illness H&P Date: 05/07/17 Chief Complaint: Right flank pain 41-year-old female with past medical history of GERD, hiatal hernia, CVA/TIA, thyroid disorder, degenerative disc disease, and recurrent urinary tract infections as a child presented for evaluation of dysuria, flank pain, fevers, myalgia, nausea or vomiting. She states her symptoms started about 3 days ago and the fever started yesterday with a T-max of 101.6F. She states the symptoms feel similar to when she was a child and was having urinary tract infections and a very frequent rate. She never recently had any urinary tract infections. UA showed cloudy with leukocyte esterase positive and WBC count 83 Ultrasound of the kidneys showed mild atrophy of right kidney with the thinning of cortices. No hydronephrosis/no nephrolithiasis noted. Review of Systems CONSTITUTIONAL: Patient does have fever, chills. HEENT: No recent visual problems or hearing problems. Denied any sore throat. CARDIOVASCULAR: No chest pain, orthopnea, PND, no palpitations, no syncope. PULMONARY: , no hemoptysis. GASTROINTESTINAL: No diarrhea, patient does have nausea, no vomiting, no abdominal pain. Normoactive bowel sounds. Right flank pain and tenderness at costophrenic angle NEUROLOGICAL: No headaches, no weakness, no numbness. HEMATOLOGICAL: Denies any bleeding or petechiae. GENITOURINARY: Denies any burning micturition, frequency, or urgency. MUSCULOSKELETAL/RHEUMATOLOGICAL: Denies any joint pain, swelling, or any muscle pain. ENDOCRINE: Denies any polyuria or polydipsia. The rest of the 14-point review of systems is negative. Past Medical History Past Medical History: GERD/Reflux, Syncope, Thyroid Disorder Additional Past Medical History / Comment(s): hiatal hernia, ovarian cyst, hx. arrythmia @times, DJD,back pain due to fracture L5 FX AND BROKE TAILBONE, SINUS PROBLEMS, bloating, pain w/eating, N/V, recent CT scan shows spot on lung-dr monitoring, PAST DUODENAL ULCER History of Any Multi-Drug Resistant Organisms: None Reported Past Surgical History: Section, Cholecystectomy, Hysterectomy, Orthopedic Surgery, Tubal Ligation Additional Past Surgical History / Comment(s): Laparoscopic surgery where bowel was nicked so had emergency bowel surgery, R breast biopsy, LT hand surgery- CYST REMOVED, x2.EGD/DILATION Past Anesthesia/Blood Transfusion Reactions: No Reported Reaction Additional Past Anesthesia/Blood Transfusion Reaction / Comment(s): CLAUSTROPHOBIA Smoking Status: Current every day smoker - Past Family History Sister(s) Additional Family Medical History / Comment(s): Irregular HR. Full Hysterectomy. Ovarian CA. Gallbladder. Kidney issues Father Family Medical History: Cancer Additional Family Medical History / Comment(s): BLADDER CANCER SPREAD TO KIDNEY AND PROSTATE Mother Family Medical History: COPD, GERD/Reflux, Thyroid Disorder Additional Family Medical History / Comment(s): Vertigo Medications and Allergies Allergies Allergy/AdvReac Type Severity Reaction Status Date / Time ibuprofen [From Motrin] Allergy Rash/Hives Verified 05/07/17 18:22 Physical Exam Vitals: Vital Signs Temp Pulse Pulse Resp BP BP Pulse Ox 05/07/17 17:25 100 F H 05/07/17 16:35 100.7 F H 86 20 112/69 100 05/07/17 16:00 99.0 F 05/07/17 15:39 80 18 112/58 100 05/07/17 14:10 80 18 105/66 95 05/07/17 13:00 99.6 F 05/07/17 11:58 100.3 F H 97 18 102/65 99 Intake and Output 05/07/17 05/07/17 05/07/17 06:59 14:59 22:59 Other: Voiding Method Toilet Toilet Weight 60.328 kg Patient Weight 05/08/17 06:59 Weight 60.328 kg PHYSICAL EXAMINATION: Patient is lying in the bed comfortably, no acute distress, awake alert and oriented.. HEENT: Normocephalic. Neck is supple. Pupils reactive. Nostrils clear. Oral cavity is moist. Ears reveal no drainage. Neck reveals no JVD, carotid bruits, or thyromegaly. CHEST EXAMINATION: Trachea is central. Symmetrical expansion. Lung mack clear to auscultation and percussion. CARDIAC: Normal S1, S2 with no gallops. No murmurs ABDOMEN: Soft. Bowel sounds normal. No organomegaly. No abdominal bruits. Right flank tenderness Extremities reveal no edema. No clubbing or cyanosis Neurologically awake, alert, oriented x3 with well-coordinated movements. Skin: no rash or skin lesions Musculoskeletal: no joint swelling or deformity. Results CBC & Chem 7: 05/07/17 12:55 05/07/17 12:55 Labs: Abnormal Lab Results - Last 24 Hours (Table) 05/07/17 05/07/17 05/07/17 Range/Units 12:50 12:55 12:55 WBC 13.0 H (3.8-10.6) k/uL Neutrophils # 11.1 H (1.3-7.7) k/uL Chloride 108 H (98-107) mmol/L Plasma Lactic Acid Miguel (0.7-2.0) mmol/L Urine Appearance Cloudy H (Clear) Urine Protein 1+ H (Negative) Urine Ketones 1+ H (Negative) Ur Leukocyte Esterase Moderate H (Negative) Urine RBC 9 H (0-5) /hpf Urine WBC 83 H (0-5) /hpf Urine Bacteria Few H (None) /hpf Hyaline Casts 4 H (0-2) /lpf Urine Mucus Few H (None) /hpf 05/07/17 Range/Units 17:14 WBC (3.8-10.6) k/uL Neutrophils # (1.3-7.7) k/uL Chloride (98-107) mmol/L Plasma Lactic Acid Miguel 0.6 L (0.7-2.0) mmol/L Urine Appearance (Clear) Urine Protein (Negative) Urine Ketones (Negative) Ur Leukocyte Esterase (Negative) Urine RBC (0-5) /hpf Urine WBC (0-5) /hpf Urine Bacteria (None) /hpf Hyaline Casts (0-2) /lpf Urine Mucus (None) /hpf Thrombosis Risk Factor Assmnt - DVT/VTE Prophylaxis DVT/VTE Prophylaxis: Pharmacologic Prophylaxis ordered - Choose All That Apply Any of the Below Risk Factors Present?: No Other Risk Factors: No Other congenital or acquired thrombophilia - If yes, enter type in comment: No Thrombosis Risk Factor Assessment Level: Very Low Risk Assessment and Plan Plan: #1 acute pyelonephritis. patient has urea positive and right flank pain #2 sepsis secondary to pyelonephritis #3 GERD and hiatal hernia #4 chronic back pain and history of injury #Hypothyroidism #6 history of CVA/TIA #7 recurrent urinary tract infections as a child. No recent UTI #8 DVT prophylaxis Plan: Patient will be continued on IV hydration and pain management with IV Dilaudid and controlled with antibiotics in the form of ceftriaxone. Ultrasound of ABDOMEN WAS OBTAINED. WE will continue to follow closely. Follow-up urine culture and blood culture.
[2017-05-07] MEDS: TEMAZEPAM 15 MG CAP PO PRN (22:22)
[2017-05-07] MEDS: NICOTINE 21MG/24HR PATCH TRANSDERM SCH (23:23)
[2017-05-08] MEDS: ACETAMINOPHEN TAB 325 MG TAB PO PRN ×2 (00:38→11:06)
[2017-05-08] MEDS: MORPHINE SULFATE 4 MG/ML SYRINGE IV PRN ×5 (02:17→19:57)
[2017-05-08] MEDS: SODIUM CHLORIDE 0.9% 1,000 ML IV SCH ×2 (02:18→16:55)
[2017-05-08] MEDS: KETOROLAC 30 MG/ML 1 ML VIAL IVP PRN ×4 (02:28→21:19)
[2017-05-08 06:21] LABS: Basophils % (A) 0 %; CH 32.2; Eosinophils % (A) 0 %; HCT 33.5 % (34.0-46.0); HDW 2.56; HGB 10.9 gm/dL (11.4-16.0); Luc # (Auto) 0.14; Luc % (Auto) 2; Lymphocytes # (A) 0.7 k/uL (1.0-4.8); Lymphocytes % (A) 9 %; MCH 31.8 pg (25.0-35.0); MCHC 32.5 g/dL (31.0-37.0); Monocytes # (A) 0.3 k/uL (0-1.0); Monocytes % (A) 4 %; Neutrophils # (A) 6.7 k/uL (1.3-7.7); Neutrophils % (A) 85 %; RBC 3.42 m/uL (3.80-5.40); RDW 14.3 % (11.5-15.5); WBC 7.9 k/uL (3.8-10.6); WBC (Perox) 8.74
[2017-05-08 06:32] LABS: Anion Gap 5 mmol/L; Blood Urea Nitrogen 9 mg/dL (7-17); Calcium 7.8 mg/dL (8.4-10.2); Carbon Dioxide 23 mmol/L (22-30); Chloride 110 mmol/L (98-107); Glucose 121 mg/dL (74-99); Non-African American GFR(MDRD) >60 (>60 ml/min/1.73 sqM); Potassium 3.9 mmol/L (3.5-5.1); Sodium 138 mmol/L (137-145)
[2017-05-08] MEDS: PANTOPRAZOLE 40 MG TABLET PO SCH (07:45)
[2017-05-08] MEDS ORDERED: RX INFO: IV CONTRAST WAS GIVEN 1 EACH MISC MISCELLANE PRN (15:30)
[2017-05-08] MEDS: IOHEXOL 350 MG/ML 25 ML BOTTLE (ORAL USE) PO PRN ×2 (16:21→17:37)
--- NOTE | 2017-05-08 21:03 | CT ---
EXAMINATION TYPE: CT abdomen pelvis w con DATE OF EXAM: 05/08/2017 COMPARISON: Previous HISTORY: Right flank pain x [address] DLP: 456.50 mGycm Automated exposure control for dose reduction was used. TECHNIQUE: Helical acquisition of images was performed from the lung bases through the pelvis. CONTRAST: Performed with Oral Contrast and with IV Contrast, patient injected with 100 mL of Omnipaque 300. FINDINGS: LUNG BASES: No significant abnormality is appreciated. LIVER/GB: No significant abnormality is appreciated. PANCREAS: No significant abnormality is seen. SPLEEN: No significant abnormality is seen. ADRENALS: No significant abnormality is seen. KIDNEYS: There is a striated contrast right renal nephrogram. There is no associated abnormal fluid c ollection and no abnormal gas collection. However, throughout the right perirenal space there is a re ticular pattern of increased attenuation extending posterolaterally to involve the renal fascia. This inflammatory edematous change, along with the striated contrast nephrogram, is consistent with nonco mpensated pyelonephritis on the ipsilateral right. The contralateral left kidney is unremarkable. The re is no hydronephrosis. The ureters and urinary bladder are unremarkable. FREE AIR: No free air is visualized. RETROPERITONEAL ADENOPATHY: None visualized REPRODUCTIVE ORGANS: No significant abnormality is seen PELVIC ADENOPATHY: None visualized. OSSEOUS STRUCTURES: No significant abnormality is seen. BOWEL: No significant abnormality is seen. OTHER: Skeletal structures are unremarkable. IMPRESSION: FINDINGS CONSISTENT WITH NONCOMPLICATED RIGHT PYELONEPHRITIS.
[2017-05-08] MEDS: NICOTINE 21MG/24HR PATCH TRANSDERM SCH (21:18)
--- NOTE | 2017-05-09 00:16 | P.PN ---
Subjective Principal diagnosis: Acute right pyelonephritis 41-year-old female with past medical history of GERD, hiatal hernia, CVA/TIA, thyroid disorder, degenerative disc disease, and recurrent urinary tract infections as a child presented for evaluation of dysuria, flank pain, fevers, myalgia, nausea or vomiting. She states her symptoms started about 3 days ago and the fever started yesterday with a T-max of 101.6F. She states the symptoms feel similar to when she was a child and was having urinary tract infections and a very frequent rate. She never recently had any urinary tract infections. UA showed cloudy with leukocyte esterase positive and WBC count 83 Ultrasound of the kidneys showed mild atrophy of right kidney with the thinning of cortices. No hydronephrosis/no nephrolithiasis noted. 05/08/2017 Patient is still complaining of right flank pain. CT of the abdominal and pelvis was obtained which showed uncomplicated right pyelonephritis. Patient has been afebrile. Continued on antibiotics in the form of ceftriaxone. Urine culture is still pending. No complains of chest pain or short of breath. No nausea or vomiting. Objective - Vital Signs Vital signs: Vital Signs Temp 98.8 F 05/08/17 20:20 Pulse 87 05/08/17 20:20 Resp 20 05/08/17 20:20 BP 105/73 05/08/17 20:20 Pulse Ox 95 05/08/17 20:20 Intake & Output 05/08/17 05/08/17 05/09/17 06:59 18:59 06:59 Intake Total 620 Output Total 450 600 Balance 170 -600 Intake: Oral 620 Output: Urine 450 600 Other: Voiding Method Toilet # Voids 1 - Exam PHYSICAL EXAMINATION: Patient is lying in the bed comfortably, no acute distress, awake alert and oriented.. HEENT: Normocephalic. Neck is supple. Pupils reactive. Nostrils clear. Oral cavity is moist. Ears reveal no drainage. Neck reveals no JVD, carotid bruits, or thyromegaly. CHEST EXAMINATION: Trachea is central. Symmetrical expansion. Lung mack clear to auscultation and percussion. CARDIAC: Normal S1, S2 with no gallops. No murmurs ABDOMEN: Soft. Bowel sounds normal. No organomegaly. No abdominal bruits. Right flank tenderness Extremities reveal no edema. No clubbing or cyanosis Neurologically awake, alert, oriented x3 with well-coordinated movements. Skin: no rash or skin lesions Musculoskeletal: no joint swelling or deformity. - Labs CBC & Chem 7: 05/08/17 05:55 05/08/17 05:55 Labs: Abnormal Lab Results - Last 24 Hours (Table) 05/08/17 05/08/17 Range/Units 05:55 05:55 RBC 3.42 L (3.80-5.40) m/uL Hgb 10.9 L (11.4-16.0) gm/dL Hct 33.5 L (34.0-46.0) % Lymphocytes # 0.7 L (1.0-4.8) k/uL Chloride 110 H (98-107) mmol/L Glucose 121 H (74-99) mg/dL Calcium 7.8 L (8.4-10.2) mg/dL Microbiology - Last 24 Hours (Table) 05/07/17 12:50 Urine Culture - Preliminary Urine,Voided Gram Neg Bacilli 05/07/17 17:14 Blood Culture - Preliminary Blood No Growth after 24 hours Assessment and Plan Plan: #1 acute pyelonephritis. patient has ua positive and right flank pain #2 sepsis secondary to pyelonephritis #3 GERD and hiatal hernia #4 chronic back pain and history of injury #Hypothyroidism #6 history of CVA/TIA #7 recurrent urinary tract infections as a child. No recent UTI #8 DVT prophylaxis Plan: Patient will be continued on IV hydration and pain management with IV Dilaudid and controlled with antibiotics in the form of ceftriaxone. Ultrasound of ABDOMEN WAS OBTAINED. CT of the abdomen and pelvis showed changes consistent with right pyelonephritis. WE will continue to follow closely. Follow-up urine culture and blood culture.
[2017-05-09] MEDS: MORPHINE SULFATE 4 MG/ML SYRINGE IV PRN ×4 (00:18→12:33)
[2017-05-09] MEDS: TEMAZEPAM 15 MG CAP PO PRN (00:19)
[2017-05-09] MEDS: ACETAMINOPHEN TAB 325 MG TAB PO PRN ×2 (04:57→20:12)
[2017-05-09] MEDS: SODIUM CHLORIDE 0.9% 1,000 ML IV SCH ×2 (08:22→17:58)
[2017-05-09] MEDS: PANTOPRAZOLE 40 MG TABLET PO SCH ×2 (08:23→17:01)
[2017-05-09] MEDS: KETOROLAC 30 MG/ML 1 ML VIAL IVP PRN ×2 (08:24→21:33)
[2017-05-09] MEDS: prednisoLONE ACETATE 1% OPHTH DROPS 1 ML BTL BOTH EYES PRN ×2 (15:52→19:59)
[2017-05-09] MEDS: traMADol 50 MG TAB PO PRN ×2 (16:21→23:29)
[2017-05-09] MEDS: NICOTINE 21MG/24HR PATCH TRANSDERM SCH ×2 (21:33→21:35)
--- NOTE | 2017-05-09 22:50 | P.PN ---
Subjective Principal diagnosis: Acute right pyelonephritis 41-year-old female with past medical history of GERD, hiatal hernia, CVA/TIA, thyroid disorder, degenerative disc disease, and recurrent urinary tract infections as a child presented for evaluation of dysuria, flank pain, fevers, myalgia, nausea or vomiting. She states her symptoms started about 3 days ago and the fever started yesterday with a T-max of 101.6F. She states the symptoms feel similar to when she was a child and was having urinary tract infections and a very frequent rate. She never recently had any urinary tract infections. UA showed cloudy with leukocyte esterase positive and WBC count 83 Ultrasound of the kidneys showed mild atrophy of right kidney with the thinning of cortices. No hydronephrosis/no nephrolithiasis noted. 05/08/2017 Patient is still complaining of right flank pain. CT of the abdominal and pelvis was obtained which showed uncomplicated right pyelonephritis. Patient has been afebrile. Continued on antibiotics in the form of ceftriaxone. Urine culture is still pending. No complains of chest pain or short of breath. No nausea or vomiting. 05/09/2017 Patient is still complaining of right flank pain which is slightly improved. Urine culture showed gram-negative bacilli. Final culture report is pending. Otherwise patient denied any fever or chills. No chest pain. Not short of breath. Patient is nauseated. Patient also complaining of itching of both eyes. Objective - Vital Signs Vital signs: Vital Signs Temp 98.9 F 05/09/17 20:18 Pulse 87 05/09/17 20:24 Resp 18 05/09/17 20:24 BP 128/86 05/09/17 20:18 Pulse Ox 92 L 05/09/17 20:18 Intake & Output 05/09/17 05/09/17 05/10/17 06:59 18:59 06:59 Output Total 400 Balance -400 Output: Urine 400 Other: Voiding Method Toilet Toilet Toilet # Voids 200 - Exam PHYSICAL EXAMINATION: Patient is lying in the bed comfortably, no acute distress, awake alert and oriented.. HEENT: Normocephalic. Neck is supple. Pupils reactive. Nostrils clear. Oral cavity is moist. Ears reveal no drainage. Neck reveals no JVD, carotid bruits, or thyromegaly. CHEST EXAMINATION: Trachea is central. Symmetrical expansion. Lung mack clear to auscultation and percussion. CARDIAC: Normal S1, S2 with no gallops. No murmurs ABDOMEN: Soft. Bowel sounds normal. No organomegaly. No abdominal bruits. Right flank tenderness Extremities reveal no edema. No clubbing or cyanosis Neurologically awake, alert, oriented x3 with well-coordinated movements. Skin: no rash or skin lesions Musculoskeletal: no joint swelling or deformity. - Labs CBC & Chem 7: 05/08/17 05:55 05/08/17 05:55 Labs: Microbiology - Last 24 Hours (Table) 05/07/17 17:14 Blood Culture - Preliminary Blood No Growth after 48 hours 05/07/17 12:50 Urine Culture - Preliminary Urine,Voided Gram Neg Bacilli Assessment and Plan Plan: #1 acute pyelonephritis. With gram-negative bacilli. patient has ua positive and right flank pain #2 sepsis secondary to pyelonephritis #3 GERD and hiatal hernia #4 chronic back pain and history of injury #Hypothyroidism #6 history of CVA/TIA #7 recurrent urinary tract infections as a child. No recent UTI #8 DVT prophylaxis Plan: Patient will be continued on IV hydration and pain management with IV Dilaudid and controlled with antibiotics in the form of ceftriaxone. Ultrasound of ABDOMEN WAS OBTAINED. CT of the abdomen and pelvis showed changes consistent with right pyelonephritis. WE will continue to follow closely. Follow-up final urine culture and blood culture.
[2017-05-09] MEDS: LORazepam 1 MG TAB PO PRN (23:28)
[2017-05-10] MEDS: SODIUM CHLORIDE 0.9% 1,000 ML IV SCH ×4 (01:08→22:22)
[2017-05-10] MEDS: traMADol 50 MG TAB PO PRN (06:41)
[2017-05-10] MEDS: prednisoLONE ACETATE 1% OPHTH DROPS 1 ML BTL BOTH EYES PRN ×3 (06:44→15:53)
[2017-05-10] MEDS: KETOROLAC 30 MG/ML 1 ML VIAL IVP PRN ×2 (08:10→18:53)
[2017-05-10] MEDS: PANTOPRAZOLE 40 MG TABLET PO SCH ×2 (08:12→18:49)
[2017-05-10] MEDS: MORPHINE SULFATE 4 MG/ML SYRINGE IV PRN (10:43)
--- NOTE | 2017-05-10 14:05 | P.PN ---
Subjective 41-year-old female with past medical history of GERD, hiatal hernia, CVA/TIA, thyroid disorder, degenerative disc disease, and recurrent urinary tract infections as a child presented for evaluation of dysuria, flank pain, fevers, myalgia, nausea or vomiting. She states her symptoms started about 3 days ago and the fever started yesterday with a T-max of 101.6F. She states the symptoms feel similar to when she was a child and was having urinary tract infections and a very frequent rate. She never recently had any urinary tract infections. UA showed cloudy with leukocyte esterase positive and WBC count 83 Ultrasound of the kidneys showed mild atrophy of right kidney with the thinning of cortices. No hydronephrosis/no nephrolithiasis noted. 05/08/2017 Patient is still complaining of right flank pain. CT of the abdominal and pelvis was obtained which showed uncomplicated right pyelonephritis. Patient has been afebrile. Continued on antibiotics in the form of ceftriaxone. Urine culture is still pending. No complains of chest pain or short of breath. No nausea or vomiting. 05/09/2017 Patient is still complaining of right flank pain which is slightly improved. Urine culture showed gram-negative bacilli. Final culture report is pending. Otherwise patient denied any fever or chills. No chest pain. Not short of breath. Patient is nauseated. Patient also complaining of itching of both eyes. Objective - Vital Signs Vital signs: Vital Signs Temp 98.9 F 05/09/17 20:18 Pulse 87 05/09/17 20:24 Resp 18 05/09/17 20:24 BP 128/86 05/09/17 20:18 Pulse Ox 92 L 05/09/17 20:18 Intake & Output 05/09/17 05/09/17 05/10/17 06:59 18:59 06:59 Output Total 400 Balance -400 Output: Urine 400 Other: Voiding Method Toilet Toilet Toilet # Voids 200 - Exam PHYSICAL EXAMINATION: Patient is lying in the bed comfortably, no acute distress, awake alert and oriented.. HEENT: Normocephalic. Neck is supple. Pupils reactive. Nostrils clear. Oral cavity is moist. Ears reveal no drainage. Neck reveals no JVD, carotid bruits, or thyromegaly. CHEST EXAMINATION: Trachea is central. Symmetrical expansion. Lung mack clear to auscultation and percussion. CARDIAC: Normal S1, S2 with no gallops. No murmurs ABDOMEN: Soft. Bowel sounds normal. No organomegaly. No abdominal bruits. Right flank tenderness Extremities reveal no edema. No clubbing or cyanosis Neurologically awake, alert, oriented x3 with well-coordinated movements. Skin: no rash or skin lesions Musculoskeletal: no joint swelling or deformity. Assessment and Plan Plan: #1 acute pyelonephritis. ecoli #2 sepsis secondary to pyelonephritis #3 GERD and hiatal hernia #4 chronic back pain and history of injury #Hypothyroidism #6 history of CVA/TIA #7 recurrent urinary tract infections as a child. No recent UTI #8 DVT prophylaxis change to oral pain control dc home on ceftin pt has not had significant oral intake, moniter for another 24 hrs likely can be discharged home claudia Objective - Vital Signs Vital signs: Vital Signs Temp 99.7 F H 05/10/17 11:51 Pulse 79 05/10/17 11:51 Resp 18 05/10/17 11:51 BP 113/82 05/10/17 11:51 Pulse Ox 94 L 05/10/17 11:51 Intake & Output 05/09/17 05/10/17 05/10/17 18:59 06:59 18:59 Intake Total 200 Output Total 400 1000 950 Balance -400 -800 -950 Intake: Oral 200 Output: Urine 400 1000 950 Other: Voiding Method Toilet Toilet # Voids 200 1 - Labs CBC & Chem 7: 05/08/17 05:55 05/08/17 05:55 Labs: Microbiology - Last 24 Hours (Table) 05/07/17 12:50 Urine Culture - Final Urine,Voided Escherichia coli 05/07/17 17:14 Blood Culture - Preliminary Blood No Growth after 48 hours
[2017-05-10] MEDS: HYDROcodone/APAP 5-325MG 1 EACH TAB PO PRN ×2 (15:46→20:12)
[2017-05-10] MEDS: NICOTINE 21MG/24HR PATCH TRANSDERM SCH (20:21)
[2017-05-10] MEDS: LORazepam 1 MG TAB PO PRN (22:22)
[2017-05-11] MEDS: HYDROcodone/APAP 5-325MG 1 EACH TAB PO PRN ×2 (00:18→07:13)
[2017-05-11 00:33] VITALS: TEMP 98.9
[2017-05-11 08:18] VITALS: BP 133/89; RESP 14
[2017-05-11 08:22] VITALS: PULSE 84
[2017-05-11] MEDS: prednisoLONE ACETATE 1% OPHTH DROPS 1 ML BTL BOTH EYES PRN (10:42)
[2017-05-11] MEDS: traMADol 50 MG TAB PO PRN (10:46)
--- NOTE | 2017-05-11 15:11 | P.DS ---
Providers Date of admission: 05/07/17 15:00 Attending physician: Nick Bruno Primary care physician: Betty Kumar [facility] Hospital Course: 41-year-old female with past medical history of GERD, hiatal hernia, CVA/TIA, thyroid disorder, degenerative disc disease, and recurrent urinary tract infections as a child presented for evaluation of dysuria, flank pain, fevers, myalgia, nausea or vomiting. She states her symptoms started about 3 days ago and the fever started yesterday with a T-max of 101.6F. She states the symptoms feel similar to when she was a child and was having urinary tract infections and a very frequent rate. She never recently had any urinary tract infections. UA showed cloudy with leukocyte esterase positive and WBC count 83 Ultrasound of the kidneys showed mild atrophy of right kidney with the thinning of cortices. No hydronephrosis/no nephrolithiasis noted. 05/08/2017 Patient is still complaining of right flank pain. CT of the abdominal and pelvis was obtained which showed uncomplicated right pyelonephritis. Patient has been afebrile. Continued on antibiotics in the form of ceftriaxone. Urine culture is still pending. No complains of chest pain or short of breath. No nausea or vomiting. 05/09/2017 Patient is still complaining of right flank pain which is slightly improved. Urine culture showed gram-negative bacilli. Patient is feeling much better and patient is being discharged on Ceftin. PHYSICAL EXAMINATION: GENERAL: The patient is alert and oriented x3, not in any acute distress. Well developed, well nourished. HEENT: Pupils are round and equally reacting to light. EOMI. No scleral icterus. No conjunctival pallor. Normocephalic, atraumatic. No pharyngeal erythema. No thyromegaly. CARDIOVASCULAR: S1 and S2 present. No murmurs, rubs, or gallops. PULMONARY: Chest is clear to auscultation, no wheezing or crackles. ABDOMEN: Soft, nontender, nondistended, normoactive bowel sounds. No palpable organomegaly. MUSCULOSKELETAL: No joint swelling or deformity. EXTREMITIES: No cyanosis, clubbing, or pedal edema. NEUROLOGICAL: Gross neurological examination did not reveal any focal deficits. SKIN: No rashes. #1 acute pyelonephritis. ecoli #2 sepsis secondary to pyelonephritis #3 GERD and hiatal hernia #4 chronic back pain and history of injury #Hypothyroidism #6 history of CVA/TIA #7 recurrent urinary tract infections as a child. No recent UTI #8 DVT prophylaxis Plan - Discharge Summary New Discharge Prescriptions: New Cefuroxime Axetil [Ceftin] 500 mg PO BID #14 tab HYDROcodone/APAP 5-325MG [[place] 5-325] 1 tab PO Q6HR PRN #20 tab PRN Reason: Pain Dexamethasone 0.1% Ophth Drops [Decadron 0.1% Ophth Drops] 1 drop BOTH EYES BID #1 bottle Nicotine 14Mg/24Hr Patch [Habitrol] 1 patch TRANSDERM DAILY #7 patch Continue Omeprazole [PriLOSEC] 40 mg PO BID #60 capsule. HYDROcodone/APAP 5-325MG [[place] 5-325] 1 tab PO Q8H PRN #30 tab PRN Reason: Pain Discharge Medication List Omeprazole [PriLOSEC] 40 mg PO BID #60 capsule. 04/09/15 [Rx] HYDROcodone/APAP 5-325MG [[place] 5-325] 1 tab PO Q8H PRN #30 tab 10/11/16 [Rx] Cefuroxime Axetil [Ceftin] 500 mg PO BID #14 tab 05/10/17 [Rx] HYDROcodone/APAP 5-325MG [[place] 5-325] 1 tab PO Q6HR PRN #20 tab 05/10/17 [Rx] Dexamethasone 0.1% Ophth Drops [Decadron 0.1% Ophth Drops] 1 drop BOTH EYES BID #1 bottle 05/11/17 [Rx] Nicotine 14Mg/24Hr Patch [Habitrol] 1 patch TRANSDERM DAILY #7 patch 05/11/17 [ Rx] Follow up Appointment(s)/Referral(s): Wilner Hernández MD [Primary Care Provider] - 05/14/17 1:20 pm Patient Instructions/Handouts: Urinary Tract Infection in Women (DC) Activity/Diet/Wound Care/Special Instructions: Drink plenty of fluids. If your fevers return, contact your doctor. No limits on activity. Start your antibiotics tonight. Discharge Disposition: HOME SELF-CARE
== END 2017-05-11 12:22 | disposition home or self-care (01) | DRG 872 ==
LOC: EC 11:47 → 6PED 15:00
PROVIDERS: ADMIT Internal Medicine; ATTEND Internal Medicine
DX: A41.9 Sepsis, unspecified organism (principal); N10 Acute pyelonephritis; K21.9 Gastro-esophageal reflux disease without esophagitis; K44.9 Diaphragmatic hernia without obstruction or gangrene; E03.9 Hypothyroidism, unspecified; Z86.73 Personal history of transient ischemic attack (TIA), and cerebral infarction without residual deficits; G89.29 Other chronic pain; F17.200 Nicotine dependence, unspecified, uncomplicated; F40.240 Claustrophobia; M54.9 Dorsalgia, unspecified; Z79.899 Other long term (current) drug therapy; Z87.11 Personal history of peptic ulcer disease; Z87.440 Personal history of urinary (tract) infections; Z90.49 Acquired absence of other specified parts of digestive tract; Z90.710 Acquired absence of both cervix and uterus; Z88.8 Allergy status to other drugs, medicaments and biological substances
CPT/HCPCS: 36415; 74177; 76770; 80048; 81001; 83605; 85025; 87040; 87077; 87086; 87186; 96361; 96365; 96375; 99284

== ENCOUNTER → 2019-10-28 | Outpatient (CLI) | payer OTHER ==
--- NOTE | 2019-10-28 14:51 | CT ---
EXAMINATION TYPE: CT chest wo con DATE OF EXAM: 10/28/2019 COMPARISON: CT abdomen pelvis dated 05/08/2017 HISTORY: Right lower lobe lesion. CT DLP: 378 mGycm. Automated Exposure Control for Dose Reduction was Utilized. TECHNIQUE: CT scan of the thorax is performed without IV contrast. FINDINGS: LUNGS: Additional 1 to 2 mm solid pulmonary nodule seen in the right upper lobe on image 25 of series 4. 3 mm solid pulmonary nodule is noted in the right lower lobe on series 4 image 37. Additional 1 t o 2 mm pulmonary nodule in the right lower lobe is marked on image 34. No pleural effusion or pneumot horax. MEDIASTINUM: Lack of IV contrast is noted to limit evaluation for mediastinal and especially hilar ad enopathy. There are no definitive greater than 1 cm hilar or mediastinal lymph nodes. No cardiomega ly or pericardial effusion is seen. Sandee probable residual thymic tissue in the anterior superior mediastinum. OTHER: Slightly abnormal appearance of the bone marrow. Mild diffuse osseous demineralization is susp ected with mild compression deformities of T8 and L1. Vertebral body height loss at T8 is approximate ly 30% and L1 is approximately 10%. Cholecystectomy clips are evident. Asymmetric smaller size of the right kidney 9 left is partially visualized. IMPRESSION: 1. There are few right sub 3 mm pulmonary nodules (3 in number). For nodules of this size follow-up C T thorax in 12 months is recommended to ensure stability. 2. Suspected osteopenia with compression deformities at L1 and T8 new from 2016.
== END | disposition home or self-care (01) ==
LOC: RADCTMAIN 14:11
PROVIDERS: ATTEND Family Medicine
DX: R91.1 Solitary pulmonary nodule (principal); Z79.891 Long term (current) use of opiate analgesic
CPT/HCPCS: 71250

== ENCOUNTER 2020-01-10 12:32 | Emergency (ER) | payer OTHER ==
[2020-01-10 12:36] VITALS: RESP 18
[2020-01-10] MEDS ORDERED: SODIUM CHLORIDE 0.9% 1,000 ML IV STA (13:01)
[2020-01-10] MEDS ORDERED: FAMOTIDINE 20 MG/2 ML VIAL IV STA (13:02)
[2020-01-10] MEDS ORDERED: MORPHINE SULFATE 4 MG/ML SYRINGE IV STA (13:02)
[2020-01-10] MEDS ORDERED: ONDANSETRON 4 MG/2 ML VIAL IVP STA (13:02)
--- NOTE | 2020-01-10 13:46 | XR ---
EXAMINATION TYPE: XR KUB , 2 VIEWS DATE OF EXAM ORDERED: 01/10/2020 HISTORY: abdominal pain. COMPARISON: Previous study dated 02/09/2017. FINDINGS: The lung bases are clear. Within the abdomen, the abdominal gas pattern is normal. There is no evidence of obstruction or free air. No unusual calcifications are seen. IMPRESSION: NO ACUTE INTRA-ABDOMINAL ABNORMALITY.
[2020-01-10 13:50] LABS: Basophils % (A) 0 %; Eosinophils # (A) 0.1 k/uL (0-0.7); Eosinophils % (A) 2 %; Lymphocytes # (A) 2.5 k/uL (1.0-4.8); Lymphocytes % (A) 42 %; MCH 32.7 pg (25.0-35.0); MCHC 32.4 g/dL (31.0-37.0); MCV 100.7 fL (80.0-100.0); Mean Platelet Volume 7.3; Monocytes # (A) 0.2 k/uL (0-1.0); Monocytes % (A) 4 %; Neutrophils # (A) 2.9 k/uL (1.3-7.7); Neutrophils % (A) 49 %; Platelet Count 297 k/uL (150-450); RBC 3.97 m/uL (3.80-5.40); RDW 13.6 % (11.5-15.5); WBC 5.9 k/uL (3.8-10.6)
--- NOTE | 2020-01-10 13:51 | ED ---
General Adult HPI - General Source: patient, RN notes reviewed, old records reviewed Mode of arrival: ambulatory Limitations: no limitations <Julio Gamez - Last Filed: 01/10/20 14:50> <Olimpia Aguilar - Last Filed: 01/10/20 19:29> - General Chief complaint: GI Bleed Stated complaint: abd pain, nausea, vomiting Time Seen by Provider: 01/10/20 12:42 - History of Present Illness Initial comments: 44-year-old female patient past history significant for GERD, reported gastric ulcer urgency for chief complaint of abdominal pain nausea vomiting diarrhea for the last 2 weeks. Patient reports that she has been having generalized upper abdominal pain for the last 2 weeks. Reports that she does have some pain at baseline however does been worse. Patient does take omeprazole twice a day as prescribed by her marketing and development coordinator Dr. Salvador. She reports that she has been having persistent diarrhea the last 2 days it has been dark and she has noticed blood in the diarrhea. Patient reports that her last episode of emesis was yesterday and she states that she described an drinking pop and was somewhat darker did not notice any ed blood in it. Denies any chance of being secondary to hysterectomy. Denies any other complaints. Systemic: Pt denies fatigue, fever/chills, rash. Pt denies weakness, night sweats, weight loss. Neuro: Pt denies headache, visual disturbances, syncope or pre-syncope. HEENT: Pt denies ocular discharge or irritation, otalgia, rhinorrhea, pharyngitis or notable lymphadenopathy. Cardiopulmonary: Pt denies chest pain, SOB, heart palpitations, dyspnea on exertion. : Pt denies dysuria, burning w/ urination, frequency/urgency. Denies new onset urinary or bowel incontinence. MSK: Pt denies myalgia, loss of strength or function in extremities. Neuro: Pt denies new onset weakness, paresthesias. (Julio Gamez) - Related Data Previous Rx's Medication Instructions Recorded Omeprazole [PriLOSEC] 40 mg PO BID #60 capsule. 04/09/15 Allergies Allergy/AdvReac Type Severity Reaction Status Date / Time ibuprofen [From Motrin] Allergy Rash/Hives Verified 01/10/20 14:14 Review of Systems ROS Other: All systems not noted in ROS Statement are negative. <Julio Gamez - Last Filed: 01/10/20 14:50> ROS Other: All systems not noted in ROS Statement are negative. <Olimpia Aguilar - Last Filed: 01/10/20 19:29> ROS Statement: Those systems with pertinent positive or pertinent negative responses have been documented in the HPI. Past Medical History Past Medical History: GERD/Reflux, Syncope, Thyroid Disorder Additional Past Medical History / Comment(s): hiatal hernia, ovarian cyst, hx. arrythmia @times, DJD,back pain due to fracture L5 FX AND BROKE TAILBONE, SINUS PROBLEMS, bloating, pain w/eating, N/V, recent CT scan shows spot on lung-dr monitoring, PAST DUODENAL ULCER History of Any Multi-Drug Resistant Organisms: None Reported Past Surgical History: Section, Cholecystectomy, Hysterectomy, Orthopedic Surgery, Tubal Ligation Additional Past Surgical History / Comment(s): Laparoscopic surgery where bowel was nicked so had emergency bowel surgery, R breast biopsy, LT hand surgery-CYST REMOVED, x2.EGD/DILATION Past Anesthesia/Blood Transfusion Reactions: No Reported Reaction Additional Past Anesthesia/Blood Transfusion Reaction / Comment(s): CLAUSTROPHOBIA Past Psychological History: No Psychological Hx Reported Smoking Status: Current every day smoker Past Alcohol Use History: None Reported Past Drug Use History: None Reported - Past Family History Sister(s) Additional Family Medical History / Comment(s): Irregular HR. Full Hysterectomy. Ovarian CA. Gallbladder. Kidney issues Father Family Medical History: Cancer Additional Family Medical History / Comment(s): BLADDER CANCER SPREAD TO KIDNEY AND PROSTATE Mother Family Medical History: COPD, GERD/Reflux, Thyroid Disorder Additional Family Medical History / Comment(s): Vertigo <Julio Gamez - Last Filed: 01/10/20 14:50> General Exam Limitations: no limitations <Julio Gamez - Last Filed: 01/10/20 14:50> - General Exam Comments Initial Comments: Constitutional: NAD, AOX3, Pt has pleasant affect. HEENT: NC/AT, trachea midline, neck supple, no lymphadenopathy. Posterior pharynx non erythematous, without exudates. External ears appear normal, without discharge. Mucous membranes moist. Eyes PERRLA, EOM intact. There is no scleral icterus. No pallor noted. Cardiopulmonary: RRR, no murmurs, rubs or gallops, no JVD noted. Lungs CTAB in anterior and posterior mack. No peripheral edema. Abdominal exam: Abdomen soft and non-distended. Abdomen mild generalized tenderness to palpation. Bowel sounds active in LLQ. No hepatosplenomegaly. No ecchymosis Neuro: CN II-XII grossly intact. No nuchal rigidity. No raccon eyes, no ruff sign, no hemotympanum. No cervical spinal tenderness. MSK: No posterior calf tenderness bilaterally, homans sign negative bilaterally. Posterior tibialis and radial pulse +2 bilaterally. Sensation intact in upper and lower extremities. Full active ROM in upper and lower extremities, 5/5 stregnth. (Julio Gamez) Course <Olimpia Aguilar - Last Filed: 01/10/20 19:29> Vital Signs 01/10/20 01/10/20 12:33 16:17 Temperature 98.5 F 98.3 F Pulse Rate 92 80 Respiratory 18 18 Rate Blood Pressure 133/90 129/80 O2 Sat by Pulse 97 98 Oximetry - Reevaluation(s) Reevaluation #1: 01/10/20 14:53 Sign out from SOHEILA Anderson. Patient is awaiting CT results at this time. (Olimpia Aguilar) Medical Decision Making - Lab Data Result diagrams: 01/10/20 13:14 01/10/20 13:14 - EKG Data -: EKG Interpreted by Me <Julio Gamez - Last Filed: 01/10/20 14:50> - Lab Data Result diagrams: 01/10/20 13:14 01/10/20 13:14 <Olimpia Aguilar - Last Filed: 01/10/20 19:29> - Medical Decision Making 44-year-old female patient past history significant for GERD, reported gastric ulcer urgency for chief complaint of abdominal pain nausea vomiting diarrhea for the last 2 weeks. Patient reports that she has been having generalized upper abdominal pain for the last 2 weeks. Reports that she does have some pain at baseline however does been worse. Patient does take omeprazole twice a day as prescribed by her marketing and development coordinator Dr. Salvador. She reports that she has been having persistent diarrhea the last 2 days it has been dark and she has noticed blood in the diarrhea. Patient reports that her last episode of emesis was yesterday and she states that she described an drinking pop and was somewhat darker did not notice any ed blood in it. Denies any chance of being secondary to hysterectomy. Denies any other complaints. Patient vital signs are stable, afebrile. Physical exam displayed epigastric tenderness. Laboratory investigations are obtained are non-impressive. A call was negative. Patient reports that pain is worsening. She describes that her nausea is wo rsening. Reports that the burning in her epigastrium has gotten worse. EKG is by nursing staff displayed normal sinus rhythm. A CT abdomen and pelvis was ordered. Bariatric prep will be used to evaluate the stomach. Patient will be signed out to Lisa Aguilar PA-C pending imaging. (Julio Gamez) Patient was signed out to me by Justin Gamez. Computed tomography scan was reviewed and shows signs of gastroenteritis, no other acute abnormalities. Patient states she does feel some improvement after fluids. Patient was given GI cocktail and states her symptoms have diminished. Patient states she does have a history of gastric ulcer and feels like this may be returning. Patient states she has been drinking a lot of pop lately. Patient is stable for discharge at this time. We discussed limiting her pop intake as well as ST and a [employer]. She will continue with her already prescribed omeprazole. She'll follow up with her GI doctor, Dr. Donato. She is in agreement with this plan of care. Return parameters were discussed with the patient she verbalized understanding. Case discussed with Dr. Cordero. (Olimpia Aguilar) - Lab Data Lab Results 01/10/20 01/10/20 01/10/20 Range/Units 13:14 13:14 13:14 WBC 5.9 (3.8-10.6) k/uL RBC 3.97 (3.80-5.40) m/uL Hgb 13.0 (11.4-16.0) gm/dL Hct 40.0 (34.0-46.0) % MCV 100.7 H (80.0-100.0) fL MCH 32.7 (25.0-35.0) pg MCHC 32.4 (31.0-37.0) g/dL RDW 13.6 (11.5-15.5) % Plt Count 297 (150-450) k/uL Neutrophils % 49 % Lymphocytes % 42 % Monocytes % 4 % Eosinophils % 2 % Basophils % 0 % Neutrophils # 2.9 (1.3-7.7) k/uL Lymphocytes # 2.5 (1.0-4.8) k/uL Monocytes # 0.2 (0-1.0) k/uL Eosinophils # 0.1 (0-0.7) k/uL Basophils # 0.0 (0-0.2) k/uL Sodium 140 (137-145) mmol/L Potassium 4.1 (3.5-5.1) mmol/L Chloride 109 H (98-107) mmol/L Carbon Dioxide 24 (22-30) mmol/L Anion Gap 7 mmol/L BUN 16 (7-17) mg/dL Creatinine 0.72 (0.52-1.04) mg/dL Est GFR (CKD-EPI)AfAm >90 (>60 ml/min/1.73 sqM) Est GFR (CKD-EPI)NonAf >90 (>60 ml/min/1.73 sqM) Glucose 94 (74-99) mg/dL Plasma Lactic Acid Miguel 0.8 (0.7-2.0) mmol/L Calcium 10.0 (8.4-10.2) mg/dL Total Bilirubin 0.3 (0.2-1.3) mg/dL AST 17 (14-36) U/L ALT 10 (4-34) U/L Alkaline Phosphatase 72 (38-126) U/L Total Protein 6.8 (6.3-8.2) g/dL Albumin 4.2 (3.5-5.0) g/dL Lipase 209 (23-300) U/L Urine Color Urine Appearance (Clear) Urine pH (5.0-8.0) Ur Specific [place] (1.001-1.035) Urine Protein (Negative) Urine Glucose (UA) (Negative) Urine Ketones (Negative) Urine Blood (Negative) Urine Nitrite (Negative) Urine Bilirubin (Negative) Urine Urobilinogen (<2.0) mg/dL Ur Leukocyte Esterase (Negative) Stool Occult Blood (Negative) 01/10/20 01/10/20 Range/Units 13:14 14:35 WBC (3.8-10.6) k/uL RBC (3.80-5.40) m/uL Hgb (11.4-16.0) gm/dL Hct (34.0-46.0) % MCV (80.0-100.0) fL MCH (25.0-35.0) pg MCHC (31.0-37.0) g/dL RDW (11.5-15.5) % Plt Count (150-450) k/uL Neutrophils % % Lymphocytes % % Monocytes % % Eosinophils % % Basophils % % Neutrophils # (1.3-7.7) k/uL Lymphocytes # (1.0-4.8) k/uL Monocytes # (0-1.0) k/uL Eosinophils # (0-0.7) k/uL Basophils # (0-0.2) k/uL Sodium (137-145) mmol/L Potassium (3.5-5.1) mmol/L Chloride (98-107) mmol/L Carbon Dioxide (22-30) mmol/L Anion Gap mmol/L BUN (7-17) mg/dL Creatinine (0.52-1.04) mg/dL Est GFR (CKD-EPI)AfAm (>60 ml/min/1.73 sqM) Est GFR (CKD-EPI)NonAf (>60 ml/min/1.73 sqM) Glucose (74-99) mg/dL Plasma Lactic Acid Miguel (0.7-2.0) mmol/L Calcium (8.4-10.2) mg/dL Total Bilirubin (0.2-1.3) mg/dL AST (14-36) U/L ALT (4-34) U/L Alkaline Phosphatase (38-126) U/L Total Protein (6.3-8.2) g/dL Albumin (3.5-5.0) g/dL Lipase (23-300) U/L Urine Color Yellow Urine Appearance Clear (Clear) Urine pH 6.0 (5.0-8.0) Ur Specific [place] 1.035 (1.001-1.035) Urine Protein Negative (Negative) Urine Glucose (UA) Negative (Negative) Urine Ketones Negative (Negative) Urine Blood Negative (Negative) Urine Nitrite Negative (Negative) Urine Bilirubin Negative (Negative) Urine Urobilinogen <2.0 (<2.0) mg/dL Ur Leukocyte Esterase Negative (Negative) Stool Occult Blood Negative (Negative) - EKG Data EKG Comments: Ventricular rate 73, KS interval 150, QRS 86, QT/QTc 370/407. NSR, normal EKG. No concern for acute ischemia. (Julio Gamez) Disposition <Julio Gamez - Last Filed: 01/10/20 14:50> Is patient prescribed a controlled substance at d/c from ED?: No <Olimpia Aguilar - Last Filed: 01/10/20 19:29> Clinical Impression: Dehydration, Gastroenteritis, Epigastric pain Disposition: HOME SELF-CARE Condition: Stable Instructions (If sedation given, give patient instructions): Gastritis (ED) Additional Instructions: Please return to the Emergency Department if symptoms worsen or any other concer ns. Increase water intake. Trial to limit alcohol, pop, acid and spicy foods. Follow-up with GI doctor as discussed Continue with already prescribed omeprazole. Referrals: Thong Redman MD [Primary Care Provider] - 1-2 days Shruthi Donato MD [STAFF PHYSICIAN] - 1-2 days
[2020-01-10 13:57] LABS: ALT 10 U/L (4-34); AST 17 U/L (14-36); African American GFR (CKD) >90 (>60 ml/min/1.73 sqM); Albumin 4.2 g/dL (3.5-5.0); Alkaline Phosphatase 72 U/L (38-126); Anion Gap 7 mmol/L; Blood Urea Nitrogen 16 mg/dL (7-17); Carbon Dioxide 24 mmol/L (22-30); Chloride 109 mmol/L (98-107); Glucose 94 mg/dL (74-99); Non-African American GFR(CKD) >90 (>60 ml/min/1.73 sqM); Potassium 4.1 mmol/L (3.5-5.1); Sodium 140 mmol/L (137-145); Total Bilirubin 0.3 mg/dL (0.2-1.3); Total Protein 6.8 g/dL (6.3-8.2)
[2020-01-10] MEDS ORDERED: METOCLOPRAMIDE 5 MG/ML 2 ML VIAL IVP STA (14:28)
[2020-01-10 14:44] LABS: Appearance,Urine Clear (Clear); Bilirubin,Urine Negative (Negative); Blood,Urine Negative (Negative); Color,Urine Yellow; Glucose,Urine (UA) Negative (Negative); Ketones,Urine Negative (Negative); Leukocyte Esterase,Urine Negative (Negative); Nitrite,Urine Negative (Negative); Protein,Urine Negative (Negative); Specific Gravity,Urine 1.035 (1.001-1.035); Urobilinogen,Urine <2.0 mg/dL (<2.0)
--- NOTE | 2020-01-10 15:01 | CT ---
EXAMINATION TYPE: CT abdomen pelvis w con DATE OF EXAM: 01/10/2020 COMPARISON: 05/08/2017 HISTORY: 44-year-old female epigastric pain TECHNIQUE: Contiguous axial scanning of the abdomen and pelvis following administration of 100 ml Iso mariel 300 IV contrast. Delayed images through the kidneys and coronal/sagittal reconstructions perform ed. CT DLP: 716.7 mGycm Automated exposure control for dose reduction was used. FINDINGS: Heart normal size without pericardial effusion. Lung bases clear without pleural effusion. Liver enlarged at 20.0 cm, possibly secondary to the presence of a Roberto's lobe. Bile duct prominent status post cholecystectomy, likely normal for the patient now, unchanged from prior. Portal venous system patent. Adrenal glands, left kidney, spleen, and pancreas appear within normal limits. Asymmetrically smaller right kidney redemonstrated with multiple cortical defects suggesting sequela of prior infectious insults. No dilated small bowel, free fluid, or free air. Several prominent fluid-filled small bowel loops in the lower abdomen and pelvis. Mild stool burden. Mild circumferential wall thickening along segments of the descending colon. No pe ricolonic inflammatory change. There may be some generalized fold thickening along the gastric fundus and body. No mesenteric or retroperitoneal adenopathy. Bladder is nondistended. No abnormal fluid collection in the pelvis or pelvic lymphadenopathy. Bones: No osseous destructive process. IMPRESSION: 1. GENERALIZED GASTRIC FOLD THICKENING ALONG THE FUNDUS AND BODY, PROMINENT FLUID-FILLED SMALL BOWEL LOOPS IN LOWER ABDOMEN AND PELVIS, AND MILD CIRCUMFERENTIAL WALL THICKENING ALONG SEGMENTS OF THE IZZY CENDING COLON. CORRELATE FOR GASTROENTERITIS AND MILD COLITIS. 2. SIMILAR CORTICAL DEFECTS INVOLVING THE SMALLER RIGHT KIDNEY SUGGESTING SEQUELA OF PRIOR INFECTIOUS INSULTS.
[2020-01-10] MEDS ORDERED: MAG HYDROX/AL HYDROX/SIMETH 30 ML, HYOSCYAMINE ELIXIR 10 ML, LIDOCAINE VISCOUS 2% 10 ML PO STA ×3 (15:58)
[2020-01-10 16:18] VITALS: BP 129/80; PULSE 80; TEMP 98.3
== END 2020-01-10 16:18 | disposition home or self-care (01) ==
LOC: EC 12:32
DX: K52.9 Noninfective gastroenteritis and colitis, unspecified (principal); E86.0 Dehydration; K21.9 Gastro-esophageal reflux disease without esophagitis; F17.200 Nicotine dependence, unspecified, uncomplicated; Z88.6 Allergy status to analgesic agent; Z90.710 Acquired absence of both cervix and uterus; Z87.11 Personal history of peptic ulcer disease; Z90.49 Acquired absence of other specified parts of digestive tract; Z98.890 Other specified postprocedural states
CPT/HCPCS: 36415; 80053; 83605; 83690; 85025; 82272; 81003; 74018; 74177; 99285; 96374; 96375 ×3; 96361; J2270; J2765; J2405; Q9967; 93005

== ENCOUNTER 2020-01-16 16:54 | Emergency (ER) | payer OTHER ==
[2020-01-16 16:58] VITALS: BP 135/92; PULSE 93; RESP 18; TEMP 98.3
[2020-01-16] MEDS ORDERED: Acetaminophen-Codeine 300-30mg TAB PO STA (17:16)
--- NOTE | 2020-01-16 17:50 | ED ---
ENT HPI - General Chief complaint: Dental/Oral Stated complaint: Dental abscess Time Seen by Provider: 01/16/20 17:00 Source: patient Mode of arrival: ambulatory Limitations: no limitations - History of Present Illness Initial comments: Patient is a 44-year-old female presenting to emergency Department with complaints of left-sided dental pain and swelling 3 days. Patient states she contacted her PCP 3 days ago and was started on amoxicillin. Patient states she went to [facility] yesterday and was given IV antibiotics, oral antibiotics and told to follow-up with dentist. She is currently on 450 mg of clindamycin x 1 day. Patient states she talked to her PCP again today who recommended she come back to the ER. Patient denies having fever, chills, nausea, vomiting. She states she knows she has a fractured tooth on the lower left side and that for her pain is coming from. She has not follow-up with her dentist yet. She has no other complaints at this time. Upon arrival to the ER, her vitals are stable. - Related Data Previous Rx's Medication Instructions Recorded Omeprazole [PriLOSEC] 40 mg PO BID #60 capsule. 04/09/15 Allergies Allergy/AdvReac Type Severity Reaction Status Date / Time ibuprofen [From Motrin] Allergy Rash/Hives Verified 01/16/20 16:58 morphine Allergy Unknown Verified 01/16/20 16:58 Review of Systems ROS Statement: Those systems with pertinent positive or pertinent negative responses have been documented in the HPI. ROS Other: All systems not noted in ROS Statement are negative. Past Medical History Past Medical History: GERD/Reflux, Syncope, Thyroid Disorder Additional Past Medical History / Comment(s): hiatal hernia, ovarian cyst, hx. arrythmia @times, DJD,back pain due to fracture L5 FX AND BROKE TAILBONE, SINUS PROBLEMS, bloating, pain w/eating, N/V, recent CT scan shows spot on lung-dr monitoring, PAST DUODENAL ULCER History of Any Multi-Drug Resistant Organisms: None Reported Past Surgical History: Section, Cholecystectomy, Hysterectomy, Orthopedic Surgery, Tubal Ligation Additional Past Surgical History / Comment(s): Laparoscopic surgery where bowel was nicked so had emergency bowel surgery, R breast biopsy, LT hand surgery-CYST REMOVED, x2.EGD/DILATION Past Anesthesia/Blood Transfusion Reactions: No Reported Reaction Additional Past Anesthesia/Blood Transfusion Reaction / Comment(s): CLAUSTROPHOBIA Past Psychological History: No Psychological Hx Reported Smoking Status: Current every day smoker Past Alcohol Use History: None Reported Past Drug Use History: None Reported - Past Family History Sister(s) Additional Family Medical History / Comment(s): Irregular HR. Full Hysterectomy. Ovarian CA. Gallbladder. Kidney issues Father Family Medical History: Cancer Additional Family Medical History / Comment(s): BLADDER CANCER SPREAD TO KIDNEY AND PROSTATE Mother Family Medical History: COPD, GERD/Reflux, Thyroid Disorder Additional Family Medical History / Comment(s): Vertigo General Exam - General Exam Comments Initial Comments: GENERAL: Well-appearing, well-nourished and in no acute distress. HEAD: Atraumatic, normocephalic. EYES: Pupils equal round and reactive to light, extraocular movements intact, sclera anicteric, conjunctiva are normal. ENT: TMs normal, nares patent, oropharynx clear without exudates. Moist mucous membranes. Patient has mild to moderate swelling of the left lower jaw line, and pain to palpation of the left lower gumline. The swelling goes just slightly below the left jawline. There is no dental abscess visible. Broken tooth on the lower left side. NECK: Normal range of motion, supple without lymphadenopathy or JVD. LUNGS: Breath sounds clear to auscultation bilaterally and equal. No wheezes rales or rhonchi. HEART: Regular rate and rhythm without murmurs, rubs or gallops. ABDOMEN: Soft, nontender, normoactive bowel sounds. No guarding, no rebound. No masses appreciated. : Deferred EXTREMITIES: Normal range of motion, no pitting or edema. No clubbing or cyanosis. NEUROLOGICAL: Normal speech, normal gait. PSYCH: Normal mood, normal affect. SKIN: Warm, Dry, normal turgor, no rashes or lesions noted. Limitations: no limitations Course Vital Signs 01/16/20 16:55 Temperature 98.3 F Pulse Rate 93 Respiratory 18 Rate Blood Pressure 135/92 O2 Sat by Pulse 98 Oximetry Medical Decision Making - Medical Decision Making Patient 44-year-old female here for a dental abscess 3 days. She is currently on clindamycin. CT of the soft tissue neck reveals cellulitis, no discrete abscess is visualized. I discussed with patient that she needs continue with currently prescribed clindamycin. She needs to follow-up with dentist KATHARINE. Patient became very upset that we are unable to do anything else for her. She also stated that we are very rude to her and did not offer her a blanket or an ice pack. Patient demanded to see a dentist. I explained to her that she needs to call her dentist or call her insurance company for a different dentist. Return parameters were discussed the patient she verbalized understanding. Case discussed with Dr. Palma. Disposition Clinical Impression: Dental abscess, Dental caries, Fracture of tooth Disposition: HOME SELF-CARE Condition: Stable Instructions (If sedation given, give patient instructions): Dental Abscess (ED) Additional Instructions: Please return to the Emergency Department if symptoms worsen or any other concerns. Continue with all her he prescribed clindamycin. Follow-up with dentist KATHARINE. Is patient prescribed a controlled substance at d/c from ED?: No Referrals: Thong Redman MD [Primary Care Provider] - 1-2 days
--- NOTE | 2020-01-16 17:58 | CT ---
EXAMINATION TYPE: CT soft tissue neck wo con DATE OF EXAM: 01/16/2020 COMPARISON: None HISTORY: 44-year-old female left sided facial swelling, dental abscess, pain TECHNIQUE: Contiguous axial scanning of the soft tissues of the neck without IV contrast. Coronal and sagittal reconstructions performed. CT DLP: 201.3 mGycm Automated exposure control for dose reduction was used. FINDINGS: Lack of IV contrast limits assessment of the cervical mucosal space. Allowing for this limitation, no obvious abnormality of the nasopharynx or oropharynx. Prevertebral soft tissues and epiglottis are within normal limits. Glottic and subglottic structures as well as the tracheal column and visualized upper lungs appear cl ear. Visualized intracranial structures, orbits and globes, paranasal sinuses, and mastoid air cells appea r clear. Rightward nasal septal deviation. There is soft tissue thickening with a reticulations in the subcutaneous adipose along the left side of the jaw extending to the upper left neck. There seems to be a small dental carry involving the left second mandibular premolar or first axial i mage 39, coronal image 14, and sagittal image 38. No obvious periapical lucency or abscess is identif ied. Symmetric appearance to the parotid and submandibular glands and unremarkable appearance to the thyro id gland. Prominent 7 interspace lymph nodes measuring up to 8 mm. Otherwise, scattered nonenlarged upper cervi teofilo lymph nodes measure up to 9 mm. No osseous destructive process. IMPRESSION: 1. CELLULITIS ALONG THE LEFT SIDE OF THE JAW. ALLOWING FOR NONCONTRAST ASSESSMENT, NO DISCRETE ABSCES S IS IDENTIFIED. 2. SMALL DENTAL CARIES INVOLVING THE LEFT MANDIBULAR SECOND PREMOLAR. NO SIZABLE PERIAPICAL ABSCESS I S IDENTIFIED.
== END 2020-01-16 18:27 | disposition home or self-care (01) ==
LOC: EC 16:54
DX: K04.7 Periapical abscess without sinus (principal); S02.5XXA Fracture of tooth (traumatic), initial encounter for closed fracture; K02.9 Dental caries, unspecified; F17.200 Nicotine dependence, unspecified, uncomplicated; Z88.6 Allergy status to analgesic agent; Z88.5 Allergy status to narcotic agent; X58.XXXA Exposure to other specified factors, initial encounter
CPT/HCPCS: 70490; 99283

== ENCOUNTER → 2021-01-07 | Outpatient (CLI) | payer OTHER | END | disposition home or self-care (01) | LOC: LABWHC1 16:45 | PROVIDERS: ATTEND Family Medicine | DX: U07.1 COVID-19 (principal) | CPT/HCPCS: U0003; C9803; U0005 ==

== ENCOUNTER 2021-05-06 11:50 | Observation (INO) | payer OTHER ==
[2021-05-06] MEDS ORDERED: PANTOPRAZOLE 40 MG/10 ML VIAL IVP STA (12:49)
[2021-05-06 14:04] LABS: Basophils % (A) 1 %; Eosinophils # (A) 0.1 k/uL (0-0.7); Eosinophils % (A) 2 %; HGB 13.8 gm/dL (11.4-16.0); Lymphocytes # (A) 3.1 k/uL (1.0-4.8); Lymphocytes % (A) 41 %; MCH 33.8 pg (25.0-35.0); MCHC 33.7 g/dL (31.0-37.0); MCV 100.2 fL (80.0-100.0); Mean Platelet Volume 7.6; Monocytes # (A) 0.2 k/uL (0-1.0); Monocytes % (A) 3 %; Neutrophils # (A) 3.9 k/uL (1.3-7.7); Neutrophils % (A) 52 %; Platelet Count 357 k/uL (150-450); RBC 4.09 m/uL (3.80-5.40); RDW 13.5 % (11.5-15.5); WBC 7.5 k/uL (3.8-10.6)
[2021-05-06 14:11] LABS: Appearance,Urine Clear (Clear); Bilirubin,Urine Negative (Negative); Blood,Urine Negative (Negative); Color,Urine Yellow; Glucose,Urine (UA) Negative (Negative); Ketones,Urine Negative (Negative); Leukocyte Esterase,Urine Negative (Negative); Nitrite,Urine Negative (Negative); Protein,Urine Negative (Negative); Specific Gravity,Urine 1.027 (1.001-1.035); Urobilinogen,Urine <2.0 mg/dL (<2.0)
[2021-05-06 14:17] LABS: ALT 14 U/L (4-34); AST 22 U/L (14-36); African American GFR (CKD) >90 (>60 ml/min/1.73 sqM); Albumin 4.6 g/dL (3.5-5.0); Alkaline Phosphatase 116 U/L (38-126); Amylase 59 U/L (30-110); Anion Gap 9 mmol/L; Blood Urea Nitrogen 14 mg/dL (7-17); Calcium 9.9 mg/dL (8.4-10.2); Carbon Dioxide 23 mmol/L (22-30); Chloride 106 mmol/L (98-107); Glucose 95 mg/dL (74-99); Lipase 159 U/L (23-300); Non-African American GFR(CKD) >90 (>60 ml/min/1.73 sqM); Potassium 4.2 mmol/L (3.5-5.1); Sodium 138 mmol/L (137-145); Total Bilirubin 0.4 mg/dL (0.2-1.3); Total Protein 7.5 g/dL (6.3-8.2)
[2021-05-06 14:19] LABS: INR 0.9 (<1.2); Partial Thromboplastin Time 22.9 sec (22.0-30.0); Prothrombin Time 10.1 sec (9.0-12.0)
[2021-05-06] MEDS ORDERED: NALOXONE 0.4 MG/ML 1 ML VIAL IV PRN (14:37)
--- NOTE | 2021-05-06 14:37 | ED ---
Abdominal Pain HPI - General Chief Complaint: Abdominal Pain Stated Complaint: abd bloating, heartburn, dark stool Time Seen by Provider: 05/06/21 12:38 Source: patient, RN notes reviewed Mode of arrival: ambulatory Limitations: no limitations - History of Present Illness Initial Comments: This is a 45-year-old female presents emergency from chief complaint of epigastric pain. Patient and worsen persist symptoms. She states mainly difficulty eating drink at time states that he stuck. Patient is scheduled for an EGD with Dr. Hill. Patient states the symptoms are becoming unbearable. Patient does not taking ibuprofen occasional Excedrin. She's been no blood thinners. She states shetalked stools no history of anemia. - Related Data Home Medications Medication Instructions Recorded Confirmed Sucralfate [Carafate] 1 gm PO ACHS 05/06/21 05/06/21 Previous Rx's Medication Instructions Recorded Omeprazole [PriLOSEC] 40 mg PO BID #60 capsule. 04/09/15 Allergies Allergy/AdvReac Type Severity Reaction Status Date / Time ibuprofen [From Motrin] Allergy Rash/Hives Verified 05/06/21 12:50 morphine Allergy Unknown Verified 05/06/21 12:50 Review of Systems ROS Statement: Those systems with pertinent positive or pertinent negative responses have been documented in the HPI. ROS Other: All systems not noted in ROS Statement are negative. Past Medical History Past Medical History: GERD/Reflux, Syncope, Thyroid Disorder Additional Past Medical History / Comment(s): hiatal hernia, ovarian cyst, hx. arrythmia @times, DJD,back pain due to fracture L5 FX AND BROKE TAILBONE, SINUS PROBLEMS, bloating, pain w/eating, N/V, recent CT scan shows spot on lung-dr monitoring, PAST DUODENAL ULCER History of Any Multi-Drug Resistant Organisms: None Reported Past Surgical History: Section, Cholecystectomy, Hysterectomy, Orthopedic Surgery, Tubal Ligation Additional Past Surgical History / Comment(s): Laparoscopic surgery where bowel was nicked so had emergency bowel surgery, R breast biopsy, LT hand surgery-CYST REMOVED, x2.EGD/DILATION Past Anesthesia/Blood Transfusion Reactions: No Reported Reaction Additional Past Anesthesia/Blood Transfusion Reaction / Comment(s): CLAUSTROPHOBIA Past Psychological History: No Psychological Hx Reported Smoking Status: Current every day smoker Past Alcohol Use History: None Reported Past Drug Use History: None Reported - Past Family History Sister(s) Additional Family Medical History / Comment(s): Irregular HR. Full Hysterectomy. Ovarian CA. Gallbladder. Kidney issues Father Family Medical History: Cancer Additional Family Medical History / Comment(s): BLADDER CANCER SPREAD TO KIDNEY AND PROSTATE Mother Family Medical History: COPD, GERD/Reflux, Thyroid Disorder Additional Family Medical History / Comment(s): Vertigo General Exam Limitations: no limitations General appearance: alert, in no apparent distress Head exam: Present: atraumatic, normocephalic, normal inspection Neck exam: Present: normal inspection, full ROM. Absent: tenderness, meningismus, lymphadenopathy Respiratory exam: Present: normal lung sounds bilaterally. Absent: respiratory distress, wheezes, rales, rhonchi, stridor Cardiovascular Exam: Present: regular rate, normal rhythm, normal heart sounds. Absent: systolic murmur, diastolic murmur, rubs, gallop, clicks GI/Abdominal exam: Present: soft, tenderness (Epigastric), normal bowel sounds. Absent: distended, guarding, rebound, rigid Course Vital Signs 05/06/21 14:01 Pulse Rate 71 Respiratory 18 Rate Blood Pressure 127/105 O2 Sat by Pulse 100 Oximetry Medical Decision Making - Medical Decision Making Labs unremarkable. Patient does have significant epigastric pain and concern for peptic ulcer disease. I did discuss case with Dr. Redman accepts admission consult daily. - Lab Data Result diagrams: 05/06/21 13:45 05/06/21 13:44 Lab Results 05/06/21 05/06/21 05/06/21 Range/Units 13:44 13:44 13:45 WBC 7.5 (3.8-10.6) k/uL RBC 4.09 (3.80-5.40) m/uL Hgb 13.8 (11.4-16.0) gm/dL Hct 41.0 (34.0-46.0) % MCV 100.2 H (80.0-100.0) fL MCH 33.8 (25.0-35.0) pg MCHC 33.7 (31.0-37.0) g/dL RDW 13.5 (11.5-15.5) % Plt Count 357 (150-450) k/uL MPV 7.6 Neutrophils % 52 % Lymphocytes % 41 % Monocytes % 3 % Eosinophils % 2 % Basophils % 1 % Neutrophils # 3.9 (1.3-7.7) k/uL Lymphocytes # 3.1 (1.0-4.8) k/uL Monocytes # 0.2 (0-1.0) k/uL Eosinophils # 0.1 (0-0.7) k/uL Basophils # 0.0 (0-0.2) k/uL PT (9.0-12.0) sec INR (<1.2) APTT (22.0-30.0) sec Sodium 138 (137-145) mmol/L Potassium 4.2 (3.5-5.1) mmol/L Chloride 106 (98-107) mmol/L Carbon Dioxide 23 (22-30) mmol/L Anion Gap 9 mmol/L BUN 14 (7-17) mg/dL Creatinine 0.78 (0.52-1.04) mg/dL Est GFR (CKD-EPI)AfAm >90 (>60 ml/min/1.73 sqM) Est GFR (CKD-EPI)NonAf >90 (>60 ml/min/1.73 sqM) Glucose 95 (74-99) mg/dL Calcium 9.9 (8.4-10.2) mg/dL Total Bilirubin 0.4 (0.2-1.3) mg/dL AST 22 (14-36) U/L ALT 14 (4-34) U/L Alkaline Phosphatase 116 (38-126) U/L Total Protein 7.5 (6.3-8.2) g/dL Albumin 4.6 (3.5-5.0) g/dL Amylase 59 (30-110) U/L Lipase 159 (23-300) U/L Urine Color Urine Appearance (Clear) Urine pH (5.0-8.0) Ur Specific [place] (1.001-1.035) Urine Protein (Negative) Urine Glucose (UA) (Negative) Urine Ketones (Negative) Urine Blood (Negative) Urine Nitrite (Negative) Urine Bilirubin (Negative) Urine Urobilinogen (<2.0) mg/dL Ur Leukocyte Esterase (Negative) Blood Type Recheck No Previous Record Bld Type Recheck Status CABO Indicated Spec Expiration Date 05/09/2021 - 234305/06/21 05/06/21 Range/Units 13:45 13:45 WBC (3.8-10.6) k/uL RBC (3.80-5.40) m/uL Hgb (11.4-16.0) gm/dL Hct (34.0-46.0) % MCV (80.0-100.0) fL MCH (25.0-35.0) pg MCHC (31.0-37.0) g/dL RDW (11.5-15.5) % Plt Count (150-450) k/uL MPV Neutrophils % % Lymphocytes % % Monocytes % % Eosinophils % % Basophils % % Neutrophils # (1.3-7.7) k/uL Lymphocytes # (1.0-4.8) k/uL Monocytes # (0-1.0) k/uL Eosinophils # (0-0.7) k/uL Basophils # (0-0.2) k/uL PT 10.1 (9.0-12.0) sec INR 0.9 (<1.2) APTT 22.9 (22.0-30.0) sec Sodium (137-145) mmol/L Potassium (3.5-5.1) mmol/L Chloride (98-107) mmol/L Carbon Dioxide (22-30) mmol/L Anion Gap mmol/L BUN (7-17) mg/dL Creatinine (0.52-1.04) mg/dL Est GFR (CKD-EPI)AfAm (>60 ml/min/1.73 sqM) Est GFR (CKD-EPI)NonAf (>60 ml/min/1.73 sqM) Glucose (74-99) mg/dL Calcium (8.4-10.2) mg/dL Total Bilirubin (0.2-1.3) mg/dL AST (14-36) U/L ALT (4-34) U/L Alkaline Phosphatase (38-126) U/L Total Protein (6.3-8.2) g/dL Albumin (3.5-5.0) g/dL Amylase (30-110) U/L Lipase (23-300) U/L Urine Color Yellow Urine Appearance Clear (Clear) Urine pH 6.0 (5.0-8.0) Ur Specific [place] 1.027 (1.001-1.035) Urine Protein Negative (Negative) Urine Glucose (UA) Negative (Negative) Urine Ketones Negative (Negative) Urine Blood Negative (Negative) Urine Nitrite Negative (Negative) Urine Bilirubin Negative (Negative) Urine Urobilinogen <2.0 (<2.0) mg/dL Ur Leukocyte Esterase Negative (Negative) Blood Type Recheck Bld Type Recheck Status Spec Expiration Date Disposition Clinical Impression: Abdominal pain, GERD (gastroesophageal reflux disease), Peptic ulcer disease Disposition: ADMITTED IP TO THIS HOSP Condition: Fair Referrals: Thong Redman MD [Primary Care Provider] - 1-2 days
[2021-05-06] MEDS ORDERED: diphenhydrAMINE 50 MG/ML 1 ML VIAL IVP STA (16:20)
[2021-05-06] MEDS: SODIUM CHLORIDE 0.9% 1,000 ML IV SCH (16:21)
[2021-05-06] MEDS: ONDANSETRON 4 MG/2 ML VIAL IVP PRN ×2 (16:26→22:43)
[2021-05-06] MEDS: ACETAMINOPHEN TAB 325 MG TAB PO PRN (19:31)
[2021-05-06] MEDS: PANTOPRAZOLE 40 MG/10 ML VIAL IV SCH (19:32)
[2021-05-06] MEDS: MELATONIN 3 MG TABLET PO PRN (22:40)
[2021-05-07] MEDS: ACETAMINOPHEN TAB 325 MG TAB PO PRN (01:48)
[2021-05-07] MEDS: SODIUM CHLORIDE 0.9% 1,000 ML IV SCH ×2 (05:07→11:52)
[2021-05-07 07:26] LABS: Basophils % (A) 1 %; Eosinophils # (A) 0.1 k/uL (0-0.7); Eosinophils % (A) 2 %; HCT 36.5 % (34.0-46.0); HGB 12.4 gm/dL (11.4-16.0); Lymphocytes % (A) 43 %; MCH 34.4 pg (25.0-35.0); MCHC 33.8 g/dL (31.0-37.0); MCV 101.6 fL (80.0-100.0); Macrocytosis Slight; Mean Platelet Volume 7.5; Monocytes # (A) 0.2 k/uL (0-1.0); Monocytes % (A) 4 %; Neutrophils # (A) 2.2 k/uL (1.3-7.7); Neutrophils % (A) 47 %; Platelet Count 274 k/uL (150-450); RDW 13.3 % (11.5-15.5); WBC 4.7 k/uL (3.8-10.6)
[2021-05-07] MEDS: PANTOPRAZOLE 40 MG/10 ML VIAL IV SCH (08:57)
--- NOTE | 2021-05-07 11:14 | P.GSCN ---
History of Present Illness Consult date: 05/07/21 Reason for Consult: Dysphagia History of present illness: 45-year-old female presents to the ER with complaints of dysphagia, chest pain, burning reflux. Patient with history of previous duodenal ulcer and duodenal stricture. History of previous small hiatal hernia. She has not had an EGD for the last 4 years or so. She remains on twice daily omeprazole and frequently takes Carafate as well. Patient has had some melanotic stools recently. White blood cell count is normal at 4.7, hemoglobin 12.4. Review of Systems The patient denies any acute changes in vision or hearing, no dysphagia or odynophagia, no chest pain or shortness of breath, no dysuria or hematuria, no headache, no runny nose, no rectal bleeding, no unexplained weight loss Past Medical History Past Medical History: GERD/Reflux, Syncope, Thyroid Disorder Additional Past Medical History / Comment(s): hiatal hernia, ovarian cyst, hx. arrythmia @times, DJD,back pain due to fracture L5 FX AND BROKE TAILBONE, SINUS PROBLEMS, bloating, pain w/eating, N/V, recent CT scan shows spot on lung-dr monitoring, PAST DUODENAL ULCER History of Any Multi-Drug Resistant Organisms: None Reported Past Surgical History: Section, Cholecystectomy, Hysterectomy, Orthopedic Surgery, Tubal Ligation Additional Past Surgical History / Comment(s): Laparoscopic surgery where bowel was nicked so had emergency bowel surgery, R breast biopsy, LT hand surgery-CYST REMOVED, x2.EGD/DILATION Past Anesthesia/Blood Transfusion Reactions: No Reported Reaction Additional Past Anesthesia/Blood Transfusion Reaction / Comm: CLAUSTROPHOBIA Past Psychological History: No Psychological Hx Reported Additional Psychological History / Comment(s): Pt lives with her mom and 2 children ages 14 and 21yrs. 1 PET DOG She is normally independent. LIVES IN A SINGLE LEVEL HOME THAT HAS [address]. NO OUTSIDE SERVICES RECIEVED, NO MEDICAL EQUIPMENT. HAS WORKED IN [employer] A [employer]. Smoking Status: Current every day smoker Past Alcohol Use History: None Reported Additional Past Alcohol Use History / Comment(s): Pt started smoking in 1992. smokes 1 a pack a day Past Drug Use History: None Reported - Past Family History Sister(s) Additional Family Medical History / Comment(s): Irregular HR. Full Hysterectomy. Ovarian CA. Gallbladder. Kidney issues Father Family Medical History: Cancer Additional Family Medical History / Comment(s): BLADDER CANCER SPREAD TO KIDNEY AND PROSTATE Mother Family Medical History: COPD, GERD/Reflux, Thyroid Disorder Additional Family Medical History / Comment(s): Vertigo Medications and Allergies Home Medications Medication Instructions Recorded Confirmed Type Omeprazole [PriLOSEC] 40 mg PO BID #60 capsule. 04/09/15 05/06/21 Rx Sucralfate [Carafate] 1 gm PO ACHS 05/06/21 05/06/21 History Allergies Allergy/AdvReac Type Severity Reaction Status Date / Time ibuprofen [From Motrin] Allergy Rash/Hives Verified 05/06/21 12:50 morphine Allergy Unknown Verified 05/06/21 12:50 Surgical - Exam Vital Signs Pulse Resp BP Pulse Ox 71 18 127/105 100 05/06/21 14:01 05/06/21 14:01 05/06/21 14:01 05/06/21 14:01 Physical exam: General: Well-developed, well-nourished HEENT: Normocephalic, sclerae nonicteric Abdomen: Nontender, nondistended Extremities: No edema Neuro: Alert and oriented Results - Labs 05/07/21 06:48 05/06/21 13:44 Abnormal Lab Results - Last 24 Hours (Table) 05/06/21 05/07/21 Range/Units 13:45 06:48 RBC 3.60 L (3.80-5.40) m/uL MCV 100.2 H 101.6 H (80.0-100.0) fL Diabetes panel 05/06/21 Range/Units 13:44 Sodium 138 (137-145) mmol/L Potassium 4.2 (3.5-5.1) mmol/L Chloride 106 (98-107) mmol/L Carbon Dioxide 23 (22-30) mmol/L BUN 14 (7-17) mg/dL Creatinine 0.78 (0.52-1.04) mg/dL Glucose 95 (74-99) mg/dL Calcium 9.9 (8.4-10.2) mg/dL AST 22 (14-36) U/L ALT 14 (4-34) U/L Alkaline Phosphatase 116 (38-126) U/L Total Protein 7.5 (6.3-8.2) g/dL Albumin 4.6 (3.5-5.0) g/dL Calcium panel 05/06/21 Range/Units 13:44 Calcium 9.9 (8.4-10.2) mg/dL Albumin 4.6 (3.5-5.0) g/dL Pituitary panel 05/06/21 Range/Units 13:44 Sodium 138 (137-145) mmol/L Potassium 4.2 (3.5-5.1) mmol/L Chloride 106 (98-107) mmol/L Carbon Dioxide 23 (22-30) mmol/L BUN 14 (7-17) mg/dL Creatinine 0.78 (0.52-1.04) mg/dL Glucose 95 (74-99) mg/dL Calcium 9.9 (8.4-10.2) mg/dL Adrenal panel 05/06/21 Range/Units 13:44 Sodium 138 (137-145) mmol/L Potassium 4.2 (3.5-5.1) mmol/L Chloride 106 (98-107) mmol/L Carbon Dioxide 23 (22-30) mmol/L BUN 14 (7-17) mg/dL Creatinine 0.78 (0.52-1.04) mg/dL Glucose 95 (74-99) mg/dL Calcium 9.9 (8.4-10.2) mg/dL Total Bilirubin 0.4 (0.2-1.3) mg/dL AST 22 (14-36) U/L ALT 14 (4-34) U/L Alkaline Phosphatase 116 (38-126) U/L Total Protein 7.5 (6.3-8.2) g/dL Albumin 4.6 (3.5-5.0) g/dL Assessment and Plan (1) GERD (gastroesophageal reflux disease) Narrative/Plan: 45-year-old female with reflux, dysphagia, chest pain, history of ulcers. We'll proceed with upper endoscopy and possible dilation tomorrow. Continue antiacid therapy. Full liquid diet today. Risks of bleeding and perforation reviewed. Patient understands and wishes to proceed. Current Visit: Yes Status: Acute Code(s): K21.9 - GASTRO-ESOPHAGEAL REFLUX DISEASE WITHOUT ESOPHAGITIS SNOMED Code(s): 227014871
[2021-05-07] MEDS: ONDANSETRON 4 MG/2 ML VIAL IVP PRN ×2 (11:47→21:25)
[2021-05-07] MEDS: HYDROmorphone 1 MG/ML 1 ML SYRINGE IVP PRN ×3 (11:59→20:34)
[2021-05-07] MEDS: PANTOPRAZOLE 40 MG TABLET PO SCH (16:39)
[2021-05-07] MEDS: SUCRALFATE 1 GM TAB PO SCH ×2 (16:39→19:38)
--- NOTE | 2021-05-07 19:36 | PN ---
PROGRESS NOTE DATE OF SERVICE: 05/07/2021 CHIEF COMPLAINT: Dysphagia and possible upper GI bleed. HISTORY OF PRESENT ILLNESS: This lady is still having some difficulty and states she cannot swallow without pain. She is still complaining of anterior and posterior chest pain. She has had no fever, chills, etc. She has been seen by Surgery and scope is planned. PHYSICAL EXAMINATION: Chest is clear and cardiac exam is normal. Abdomen is soft, nontender. Vital signs are normal. IMPRESSION: 1. Dysphagia. 2. Anterior and posterior chest pain. PLAN: Advance liquids, but she will be going for endoscopy either tomorrow or Sunday. MMODL / IJN: [id number] /
--- NOTE | 2021-05-07 19:36 | HP ---
HISTORY AND PHYSICAL CHIEF COMPLAINT: Chest pain, dysphagia, melena. HISTORY OF PRESENT ILLNESS: This is another admission for this 45-year-old white female who has been having difficulty over the last several weeks or months with indigestion, dysphagia and a history of melena and possibly hematochezia. This situation grew to the point where she stated that she could not swallow at all, and she came to the emergency room. She also complains of pain going into the back of the chest. She has had no fever, chills, cough, etc. REVIEW OF SYSTEMS: She has had no fever, chills, neurologic problems, difficulty with vision or the hearing, hematemesis, melena, dysuria, frequency, urgency, renal issues, vaginal discharge or bleeding, etc. Past medical history, family history, and personal and social histories are all otherwise unremarkable and noncontributory. She has been tried on numerous medications without any noticeable benefit. PHYSICAL EXAM: Blood pressure is 132/78 with a pulse of 74, respirations of 18. She is afebrile. In general she appeared to be slightly pale and uncomfortable. Head, ears, eyes, nose, mouth and throat were normal. Neck veins were not distended. Thyroid is not enlarged. The chest is clear. Chest wall is nontender. Cardiac exam demonstrates normal sinus rhythm and no murmurs or extra sounds. Abdomen is soft and nontender without any masses or visceromegaly. Extremities are normal and neurologically she is intact. She is admitted to the hospital with diagnoses: 1. Dysphagia. 2. Possible history of upper gastrointestinal bleed. PLAN: 1. Bedrest. 2. IV fluids. 3. Consult for upper GI endoscopy. MMODL / IJN: [id number] /
[2021-05-07] MEDS ORDERED: MELATONIN 3 MG TABLET PO SCH (21:00)
[2021-05-07] MEDS: MELATONIN 3 MG TABLET PO PRN (21:25)
[2021-05-08] MEDS: HYDROmorphone 1 MG/ML 1 ML SYRINGE IVP PRN ×3 (00:28→08:20)
[2021-05-08] MEDS ORDERED: LIDOCAINE 1% INJ 10MG/ML (20 ML MDV) ONE (07:32)
[2021-05-08] MEDS ORDERED: PROPOFOL 10 MG/ML 20 ML VIAL IV ONE (07:32)
[2021-05-08] MEDS: SODIUM CHLORIDE 0.9% 1,000 ML IV SCH (07:36)
[2021-05-08] MEDS ORDERED: IV FLUID CONTINUATION 1,000 ML IV ONE (07:36)
[2021-05-08] MEDS: SUCRALFATE 1 GM TAB PO SCH ×2 (07:37→08:20)
[2021-05-08] MEDS: PANTOPRAZOLE 40 MG TABLET PO SCH ×2 (07:37→08:20)
--- NOTE | 2021-05-08 07:55 | P.PCN ---
Date of Procedure: 05/08/21 Procedure(s) Performed: Preoperative Dx: Dysphagia, abdominal pain Postoperative Dx: Duodenal stricture with small adjacent ulceration, mild gastritis Procedure: EGD with Bx Anesthesia: Sedation Endoscopist: Dr. Shahid Specimens: Antrum Endoscopic Procedure: The patient was on the endoscopy table in the left decubitus position. The Olympus gastroscope was inserted into the oropharynx and passed under direct visualization to the duodenal bulb. The patient's stricture that she had previously identified was once again seen. This was fairly tight. The 8-10 mm pyloric balloon was used to gradually dilate the stricture. Balloon was filled to 8, 9, 10 each held for 1 minute at time. Following that I still was not able to pass the scope beyond that area. There was a small mucosal tear and I did not feel comfortable dilating further. I could visualize the duodenum beyond that area which appeared normal. The remainder of the bulb appeared normal. The pylorus was widely patent. The stomach was carefully inspected. Mild gastritis seen. Retroflexion revealed a normal hiatus. The patient's esophagus was slightly tortuous but revealed no inflammatory changes or evidence of stricture formation. The patient was then taken to the recovery room in stable condition per anesthesia guidelines. Recommendations: Continue antiacids. Consider esophageal manometry as outpatient to evaluate for dysmotility.
[2021-05-08 08:01] VITALS: BP 142/84; PULSE 70; RESP 16; TEMP 97.8
--- NOTE | 2021-05-08 10:49 | DS ---
DISCHARGE SUMMARY CHIEF COMPLAINT: Dysphagia and possible upper GI bleed. HISTORY OF PRESENT ILLNESS AND PHYSICAL EXAMINATION: Details of this lady's history and physical can be found in the initial workup. LABORATORY STUDIES: While she was in the hospital, she had laboratory studies, details of which can be found in the laboratory section of her chart. COURSE IN THE HOSPITAL: After admission, she was placed on bedrest, started on intravenous fluids. Seen by Surgery. She was taken for an upper GI endoscopy where she was found to have a duodenal stricture, which she has had before. There was also apparently a poststenotic duodenal ulcer. She was dilated and it was felt she could be discharged. She will go home on her usual activity and diet, medications. She will require further followup with surgery should she require surgical intervention later. FINAL DIAGNOSES: Duodenal stricture with duodenal ulcer. OPERATIONS: Endoscopy. CONSULTATIONS: General surgery. She is improved. MMODL / IJN: [id number] /
== END 2021-05-08 10:12 | disposition home or self-care (01) ==
LOC: EC 11:50 → 6NMEDSUR 15:03
PROVIDERS: ADMIT Family Medicine; ATTEND Family Medicine
DX: K31.5 Obstruction of duodenum (principal); K29.50 Unspecified chronic gastritis without bleeding; K26.9 Duodenal ulcer, unspecified as acute or chronic, without hemorrhage or perforation; K21.9 Gastro-esophageal reflux disease without esophagitis; F17.200 Nicotine dependence, unspecified, uncomplicated; F40.240 Claustrophobia; K44.9 Diaphragmatic hernia without obstruction or gangrene; E07.9 Disorder of thyroid, unspecified; Z88.5 Allergy status to narcotic agent; Z88.6 Allergy status to analgesic agent; Z90.49 Acquired absence of other specified parts of digestive tract; Z98.891 History of uterine scar from previous surgery; Z90.710 Acquired absence of both cervix and uterus; Z87.42 Personal history of other diseases of the female genital tract; Z87.81 Personal history of (healed) traumatic fracture; Z80.41 Family history of malignant neoplasm of ovary; Z80.52 Family history of malignant neoplasm of bladder; Z82.5 Family history of asthma and other chronic lower respiratory diseases; Z83.49 Family history of other endocrine, nutritional and metabolic diseases; Z79.899 Other long term (current) drug therapy
CPT/HCPCS: 43245; 43239; 96361 ×3; 96376 ×3; 96375 ×2; 96374; 99285; 36415; 86900; 86901; 88305; 80053; 82150; 83690; 85025 ×2; 85610; 85730; 86850; 81003; G0378 ×3; J1200; J2405 ×2; J2001; J1170 ×2; J2704; C9113 ×2; C1726

== ENCOUNTER 2023-07-04 11:27 | Inpatient (IN) | payer OTHER ==
[2023-07-04] MEDS ORDERED: SODIUM CHLORIDE 0.9% 1,000 ML IV STA (11:49)
--- NOTE | 2023-07-04 12:08 | ED ---
General Adult HPI - General Chief complaint: Overdose Stated complaint: overdose Time Seen by Provider: 07/04/23 11:35 Source: patient, RN notes reviewed, old records reviewed Mode of arrival: wheelchair Limitations: no limitations - History of Present Illness Initial comments: 47-year-old female presents with overdose. History is very limited from the patient and her sister who is present is able to give some details but the exact timing is not known. The patient had apparently been seen at [facility] after overdose on Klonopin and [place]. She was there until approximately 1 AM and presents at noon for evaluation to this emergency department. She probably had been discharged after evaluation for overdose. She she then apparently took approximately 20 [id number] sleeping pills. The contents of this medication is not known. This was prior to arrival 30 minutes to 1 hour. Patient is alert but not able to give a detailed history as to the exact timing of ingestion. - Related Data Home Medications Medication Instructions Recorded Confirmed Nlpswla-[id number]-[id number] 2 tab PO Q6H PRN 07/04/23 07/04/23 [Excedrin] Calcium Carbonate [Tums] 1,000 mg PO TID PRN 07/04/23 07/04/23 HYDROcodone/APAP 5-325MG [[place] 1 tab PO DAILY PRN 07/04/23 07/04/23 5-325] clonazePAM [KlonoPIN] 0.5 mg PO BID PRN 07/04/23 07/04/23 Previous Rx's Medication Instructions Recorded Omeprazole [PriLOSEC] 40 mg PO BID #60 capsule. 04/09/15 Allergies Allergy/AdvReac Type Severity Reaction Status Date / Time ibuprofen [From Motrin] Allergy Rash/Hives Verified 07/04/23 13:52 latex Allergy Rash/Hives Verified 07/04/23 13:52 morphine Allergy Unknown Verified 07/04/23 13:52 Review of Systems ROS Statement: Those systems with pertinent positive or pertinent negative responses have been documented in the HPI. ROS Other: All systems not noted in ROS Statement are negative. Past Medical History Past Medical History: GERD/Reflux, Syncope, Thyroid Disorder Additional Past Medical History / Comment(s): hiatal hernia, ovarian cyst, hx. arrythmia @times, DJD,back pain due to fracture L5 FX AND BROKE TAILBONE, SINUS PROBLEMS, bloating, pain w/eating, N/V, recent CT scan shows spot on lung-dr monitoring, PAST DUODENAL ULCER History of Any Multi-Drug Resistant Organisms: None Reported Past Surgical History: Section, Cholecystectomy, Hysterectomy, Orthopedic Surgery, Tubal Ligation Additional Past Surgical History / Comment(s): Laparoscopic surgery where bowel was nicked so had emergency bowel surgery, R breast biopsy, LT hand surgery-CYST REMOVED, x2.EGD/DILATION Past Anesthesia/Blood Transfusion Reactions: No Reported Reaction Additional Past Anesthesia/Blood Transfusion Reaction / Comment(s): CLAUSTROPHOBIA Past Psychological History: No Psychological Hx Reported Smoking Status: Current every day smoker Past Alcohol Use History: None Reported Past Drug Use History: None Reported - Past Family History Sister(s) Additional Family Medical History / Comment(s): Irregular HR. Full Hysterectomy. Ovarian CA. Gallbladder. Kidney issues Father Family Medical History: Cancer Additional Family Medical History / Comment(s): BLADDER CANCER SPREAD TO KIDNEY AND PROSTATE Mother Family Medical History: COPD, GERD/Reflux, Thyroid Disorder Additional Family Medical History / Comment(s): Vertigo General Exam Limitations: no limitations General appearance: alert, in no apparent distress, appears intoxicated Head exam: Present: atraumatic, normocephalic Eye exam: Present: normal appearance, PERRL ENT exam: Present: mucous membranes dry Neck exam: Present: normal inspection. Absent: tenderness, meningismus Respiratory exam: Present: normal lung sounds bilaterally. Absent: respiratory distress, wheezes Cardiovascular Exam: Present: regular rate, normal rhythm Extremities exam: Present: normal inspection Neurological exam: Present: alert. Absent: motor sensory deficit Psychiatric exam: Present: depressed, anxious, suicidal ideation Skin exam: Present: warm, dry, intact. Absent: cyanosis, diaphoretic Course Vital Signs 07/04/23 11:29 Temperature 98.1 F Pulse Rate 129 H Respiratory 18 Rate Blood Pressure 131/84 O2 Sat by Pulse 98 Oximetry - Reevaluation(s) Reevaluation #1: 07/04/23 12:07 Requested records from [facility] Reevaluation #2: 07/04/23 14:46 Poison control recommended 4 hour Tylenol level, repeat CMP, and creatinine kinase. He also recommended starting N-acetylcysteine given the transaminitis. Medical Decision Making - Medical Decision Making Was pt. sent in by a medical professional or institution (SOHEILA Voss, ICT BUSINESS DEVELOPMENT MANAGER, urgent care, hospital, or residential...) When possible be specific @ -[No] Did you speak to anyone other than the patient for history (EMS, parent, family, police, friend...)? What history was obtained from this source @ -[No] Did you review nursing and triage notes (agree or disagree)? Why? @ -[I reviewed and agree with nursing and triage notes] Were old charts reviewed (outside hosp., previous admission, EMS record, old EKG, old radiological studies, urgent care reports/EKG's, residential records)? Report findings @ -[No old charts were reviewed] Differential Diagnosis (chest pain, altered mental status, abdominal pain women, abdominal pain men, vaginal bleeding, weakness, fever, dyspnea, syncope, headache, dizziness, GI bleed, back pain, seizure, CVA, palpatations, mental health, musculoskeletal)? @ Differential Mental Health Depression, anxiety, bipolar, psychosis, schizophrenia, borderline personality, situational depression, adjustment disorder, behavioral disorder, brain tumor, malingering, substance abuse, encephalopathy, medication reaction, dementia, hypothyroidism, degenerative neurologic disorder, lupus.... This is not meant to be all-inclusive list EKG interpreted by me (3pts min.). @ -Sinus tach rate of 109, WV interval 140, QRS duration 87, QTC [address] segment elevation X-rays interpreted by me (1pt min.). @ -[None done] CT interpreted by me (1pt min.). @ -[None done] U/S interpreted by me (1pt. min.). @ -[None done] What testing was considered but not performed or refused? (CT, X-rays, U/S, lab s)? Why? @ -[None] What meds were considered but not given or refused? Why? @ -[None] Did you discuss the management of the patient with other professionals (professionals i.e. SOHEILA Voss, ICT BUSINESS DEVELOPMENT MANAGER, lab, RT, psych nurse, social services specialist, body fitter, teacher, contracts officer, lining caser)? Give summary @ -Case discussed with poison control, currently following poison control recommendations. Case discussed with Dr. Trejo Admit. Was smoking cessation discussed for >3mins.? @ -[No] Was critical care preformed (if so, how long)? @ -yes, 35 minutes Were there social determinants of health that impacted care today? How? (H omelessness, low income, unemployed, alcoholism, drug addiction, transportation, low edu. Level, literacy, decrease access to med. care, fci, rehab)? @ -[No] Was there de-escalation of care discussed even if they declined (Discuss DNR or withdrawal of care, Hospice)? DNR status @ -[No] What co-morbidities impacted this encounter? (DM, HTN, Smoking, COPD, CAD, Cancer, CVA, ARF, Chemo, Hep., AIDS, mental health diagnosis, sleep apnea, morbid obesity)? @ -[None] Was patient admitted / discharged? Hospital course, mention meds given and route, prescriptions, significant lab abnormalities, going to OR and other pertinent info. @ 47-year-old female with polysubstance overdose, Tylenol overdose. The time course of her ingestion is not known it is believed that she may have taken additional medication after her discharge from [facility]. Initial Tylenol level is 13 which is in the therapeutic range of will need to be repeated and given the elevated transaminitis was eventful does recommend initiating N-acetylcysteine. Repeat CMP, Tylenol level, and creatinine kinase will be ordered for 4 hours post arrival to the emergency department. Patient will be admitted with psychiatry on consult for evaluation of attempted suicide. Undiagnosed new problem with uncertain prognosis? @ -[No] Drug Therapy requiring intensive monitoring for toxicity (Heparin, Nitro, Insulin, Cardizem)? @ -[No] Were any procedures done? @ -[No] Diagnosis/symptom? @ -Suicide attempt, acetaminophen overdose, polysubstance overdose Acute, or Chronic, or Acute on Chronic? @ -Acute Uncomplicated (without systemic symptoms) or Complicated (systemic symptoms)? @ -[Complicated Side effects of treatment? @ -[No] Exacerbation, Progression, or Severe Exacerbation? @ -[No] Poses a threat to life or bodily function? How? (Chest pain, [place], [place], pneumonia, PE, COPD, DKA, ARF, appy, cholecystitis, CVA, Diverticulitis, Homicidal, Suicidal, threat to staff... and all critical care pts) @ yes, suicide attempt, drug overdose - Lab Data Result diagrams: 07/04/23 12:00 07/04/23 12:00 Lab Results 07/04/23 07/04/23 07/04/23 Range/Units 12:00 12:00 12:00 WBC 5.1 (3.8-10.6) k/uL RBC 4.19 (3.80-5.40) m/uL Hgb 13.7 (11.4-16.0) gm/dL Hct 40.9 (34.0-46.0) % MCV 97.5 (80.0-100.0) fL MCH 32.8 (25.0-35.0) pg MCHC 33.6 (31.0-37.0) g/dL RDW 13.5 (11.5-15.5) % Plt Count 288 (150-450) k/uL MPV 7.8 Neutrophils % 43 % Lymphocytes % 47 % Monocytes % 5 % Eosinophils % 2 % Basophils % 1 % Neutrophils # 2.2 (1.3-7.7) k/uL Lymphocytes # 2.4 (1.0-4.8) k/uL Monocytes # 0.2 (0-1.0) k/uL Eosinophils # 0.1 (0-0.7) k/uL Basophils # 0.0 (0-0.2) k/uL PT 10.9 (10.0-12.5) sec INR 1.0 (<1.2) Sodium 140 (137-145) mmol/L Potassium 3.9 (3.5-5.1) mmol/L Chloride 106 (98-107) mmol/L Carbon Dioxide 21 L (22-30) mmol/L Anion Gap 13 mmol/L BUN 9 (7-17) mg/dL Creatinine 0.71 (0.52-1.04) mg/dL Est GFR (CKD-EPI)AfAm >90 (>60 ml/min/1.73 sqM) Est GFR (CKD-EPI)NonAf >90 (>60 ml/min/1.73 sqM) Glucose 87 (74-99) mg/dL Plasma Lactic Acid Miguel (0.7-2.0) mmol/L Calcium 9.7 (8.4-10.2) mg/dL Magnesium 1.7 (1.6-2.3) mg/dL Total Bilirubin 1.0 (0.2-1.3) mg/dL AST 104 H (14-36) U/L ALT 75 H (4-34) U/L Alkaline Phosphatase 95 (38-126) U/L Total Protein 7.4 (6.3-8.2) g/dL Albumin 4.6 (3.5-5.0) g/dL Lipase 91 (23-300) U/L Urine Color Urine Appearance (Clear) Urine pH (5.0-8.0) Ur Specific [place] (1.001-1.035) Urine Protein (Negative) Urine Glucose (UA) (Negative) Urine Ketones (Negative) Urine Blood (Negative) Urine Nitrite (Negative) Urine Bilirubin (Negative) Urine Urobilinogen (<2.0) mg/dL Ur Leukocyte Esterase (Negative) Salicylates 3.5 mg/dL Urine Opiates Screen (NotDetected) Ur Oxycodone Screen (NotDetected) Urine Methadone Screen (NotDetected) Ur Propoxyphene Screen (NotDetected) Acetaminophen 13.1 ug/mL Ur Barbiturates Screen (NotDetected) U Tricyclic Antidepress (NotDetected) Ur Phencyclidine Scrn (NotDetected) Ur Amphetamines Screen (NotDetected) U Methamphetamines Scrn (NotDetected) U Benzodiazepines Scrn (NotDetected) Urine Cocaine Screen (NotDetected) U Marijuana (THC) Screen (NotDetected) Serum Alcohol <10 mg/dL 07/04/23 07/04/23 07/04/23 Range/Units 12:00 12:42 12:42 WBC (3.8-10.6) k/uL RBC (3.80-5.40) m/uL Hgb (11.4-16.0) gm/dL Hct (34.0-46.0) % MCV (80.0-100.0) fL MCH (25.0-35.0) pg MCHC (31.0-37.0) g/dL RDW (11.5-15.5) % Plt Count (150-450) k/uL MPV Neutrophils % % Lymphocytes % % Monocytes % % Eosinophils % % Basophils % % Neutrophils # (1.3-7.7) k/uL Lymphocytes # (1.0-4.8) k/uL Monocytes # (0-1.0) k/uL Eosinophils # (0-0.7) k/uL Basophils # (0-0.2) k/uL PT (10.0-12.5) sec INR (<1.2) Sodium (137-145) mmol/L Potassium (3.5-5.1) mmol/L Chloride (98-107) mmol/L Carbon Dioxide (22-30) mmol/L Anion Gap mmol/L BUN (7-17) mg/dL Creatinine (0.52-1.04) mg/dL Est GFR (CKD-EPI)AfAm (>60 ml/min/1.73 sqM) Est GFR (CKD-EPI)NonAf (>60 ml/min/1.73 sqM) Glucose (74-99) mg/dL Plasma Lactic Acid Miguel 1.0 (0.7-2.0) mmol/L Calcium (8.4-10.2) mg/dL Magnesium (1.6-2.3) mg/dL Total Bilirubin (0.2-1.3) mg/dL AST (14-36) U/L ALT (4-34) U/L Alkaline Phosphatase (38-126) U/L Total Protein (6.3-8.2) g/dL Albumin (3.5-5.0) g/dL Lipase (23-300) U/L Urine Color Colorless Urine Appearance Clear (Clear) Urine pH 6.0 (5.0-8.0) Ur Specific [place] 1.008 (1.001-1.035) Urine Protein Negative (Negative) Urine Glucose (UA) Negative (Negative) Urine Ketones Negative (Negative) Urine Blood Negative (Negative) Urine Nitrite Negative (Negative) Urine Bilirubin Negative (Negative) Urine Urobilinogen <2.0 (<2.0) mg/dL Ur Leukocyte Esterase Negative (Negative) Salicylates mg/dL Urine Opiates Screen Detected H (NotDetected) Ur Oxycodone Screen Not Detected (NotDetected) Urine Methadone Screen Not Detected (NotDetected) Ur Propoxyphene Screen Not Detected (NotDetected) Acetaminophen ug/mL Ur Barbiturates Screen Not Detected (NotDetected) U Tricyclic Antidepress Not Detected (NotDetected) Ur Phencyclidine Scrn Not Detected (NotDetected) Ur Amphetamines Screen Not Detected (NotDetected) U Methamphetamines Scrn Not Detected (NotDetected) U Benzodiazepines Scrn Not Detected (NotDetected) Urine Cocaine Screen Not Detected (NotDetected) U Marijuana (THC) Screen Detected H (NotDetected) Serum Alcohol mg/dL Critical Care Time Critical Care Time: Yes Total Critical Care Time: 35 Disposition Clinical Impression: Acetaminophen overdose, Suicide attempt Disposition: ADMITTED IP TO THIS [facility] Condition: Serious Is patient prescribed a controlled substance at d/c from ED?: No Referrals: None,Stated [REFERRING] - 1-2 days Time of Disposition: 14:48
[2023-07-04 12:21] LABS: Basophils % (A) 1 %; Eosinophils # (A) 0.1 k/uL (0-0.7); Eosinophils % (A) 2 %; HCT 40.9 % (34.0-46.0); HGB 13.7 gm/dL (11.4-16.0); Lymphocytes # (A) 2.4 k/uL (1.0-4.8); Lymphocytes % (A) 47 %; MCH 32.8 pg (25.0-35.0); MCHC 33.6 g/dL (31.0-37.0); MCV 97.5 fL (80.0-100.0); Mean Platelet Volume 7.8; Monocytes # (A) 0.2 k/uL (0-1.0); Monocytes % (A) 5 %; Neutrophils # (A) 2.2 k/uL (1.3-7.7); Neutrophils % (A) 43 %; Platelet Count 288 k/uL (150-450); RBC 4.19 m/uL (3.80-5.40); RDW 13.5 % (11.5-15.5); WBC 5.1 k/uL (3.8-10.6)
[2023-07-04 12:33] LABS: ALT 75 U/L (4-34); AST 104 U/L (14-36); Acetaminophen 13.1 ug/mL; African American GFR (CKD) >90 (>60 ml/min/1.73 sqM); Albumin 4.6 g/dL (3.5-5.0); Alcohol <10 mg/dL; Alkaline Phosphatase 95 U/L (38-126); Anion Gap 13 mmol/L; Blood Urea Nitrogen 9 mg/dL (7-17); Calcium 9.7 mg/dL (8.4-10.2); Carbon Dioxide 21 mmol/L (22-30); Chloride 106 mmol/L (98-107); Glucose 87 mg/dL (74-99); Lipase 91 U/L (23-300); Magnesium 1.7 mg/dL (1.6-2.3); Non-African American GFR(CKD) >90 (>60 ml/min/1.73 sqM); Potassium 3.9 mmol/L (3.5-5.1); Salicylate 3.5 mg/dL; Sodium 140 mmol/L (137-145); Total Protein 7.4 g/dL (6.3-8.2)
[2023-07-04 12:50] LABS: Prothrombin Time 10.9 sec (10.0-12.5)
[2023-07-04 13:05] LABS: Appearance,Urine Clear (Clear); Bilirubin,Urine Negative (Negative); Blood,Urine Negative (Negative); Color,Urine Colorless; Glucose,Urine (UA) Negative (Negative); Ketones,Urine Negative (Negative); Leukocyte Esterase,Urine Negative (Negative); Nitrite,Urine Negative (Negative); Protein,Urine Negative (Negative); Specific Gravity,Urine 1.008 (1.001-1.035); Urobilinogen,Urine <2.0 mg/dL (<2.0)
[2023-07-04 13:21] LABS: Amphetamine Screen,Urine Not Detected (NotDetected); Barbiturate Screen,Urine Not Detected (NotDetected); Benzodiazepines Screen,Urine Not Detected (NotDetected); Cocaine Screen,Urine Not Detected (NotDetected); Methadone Screen, Urine Not Detected (NotDetected); Opiate Screen,Urine Detected (NotDetected); Oxycodone Screen, Urine Not Detected (NotDetected); Phencyclidine Screen,Urine Not Detected (NotDetected); Tricyclic Antidepressant,Urine Not Detected (NotDetected); Urn Cannabinoid Scrn Detected (NotDetected)
[2023-07-04] MEDS ORDERED: ACETYLCYSTEINE IV ONE ×4 (14:00→19:00)
[2023-07-04] MEDS ORDERED: WATER IV ONE ×4 (14:00→19:00)
[2023-07-04] MEDS ORDERED: DEXTROSE 5% IV ONE ×4 (14:00→19:00)
[2023-07-04] MEDS ORDERED: NALOXONE 0.4 MG/ML 1 ML VIAL IV PRN (14:44)
[2023-07-04] MEDS: SODIUM CHLORIDE 0.9% 1,000 ML IV SCH (14:49)
[2023-07-04 17:02] LABS: Potassium 3.8 mmol/L (3.5-5.1)
[2023-07-04 17:05] LABS: AST 61 U/L (14-36); Acetaminophen <10.0 ug/mL; African American GFR (CKD) >90 (>60 ml/min/1.73 sqM); Albumin 3.9 g/dL (3.5-5.0); Alkaline Phosphatase <20 U/L (38-126); Anion Gap 10 mmol/L; Blood Urea Nitrogen 7 mg/dL (7-17); Calcium 8.9 mg/dL (8.4-10.2); Carbon Dioxide 22 mmol/L (22-30); Chloride 109 mmol/L (98-107); Creatine Kinase 113 U/L (30-135); Glucose 85 mg/dL (74-99); Non-African American GFR(CKD) >90 (>60 ml/min/1.73 sqM); Sodium 141 mmol/L (137-145); Total Bilirubin 0.6 mg/dL (0.2-1.3); Total Protein 6.2 g/dL (6.3-8.2)
[2023-07-04 17:06] LABS: ALT 63 U/L (4-34)
[2023-07-05] MEDS ORDERED: PANTOPRAZOLE 40 MG TABLET PO ONE (02:57)
[2023-07-05] MEDS ORDERED: ALPRAZolam 0.25 MG TAB ONE (02:57)
--- NOTE | 2023-07-05 05:39 | HP ---
HISTORY AND PHYSICAL CHIEF COMPLAINT: Overdose. HISTORY OF PRESENT ILLNESS: This lady came to the emergency room after she had overdosed on all of her medications. She stated that she took her jaiy-pyt-[id number] sleeping pill in abundance. However, her liver enzymes were up and this is likely related to the acetaminophen, her narcotic analgesic. REVIEW OF SYSTEMS: She denies any neurologic problems, chest pain, abdominal pain, nausea, vomiting, etc. PAST MEDICAL HISTORY, FAMILY HISTORY AND PERSONAL AND SOCIAL HISTORY: All otherwise unremarkable. PHYSICAL EXAMINATION: VITAL SIGNS: Blood pressure 125/88, pulse 84, respirations 33, and she is afebrile. GENERAL: She appeared to be awake, alert. HEENT: Head, ears, eyes, nose, mouth, throat were normal. NECK: Veins are not distended. CHEST: Clear. CARDIAC: Normal. ABDOMEN: Soft, nontender. EXTREMITIES: Normal. NEUROLOGIC: She is intact. PSYCHIATRIC: She was depressed. DIAGNOSES: She has been admitted to the hospital with diagnoses, 1. Drug ingestion overdose. 2. Depression. 3. Drug-induced hepatitis. PLAN: 1. Bed rest. 2. IV fluids. 3. Suicidal precautions. 4. Psychiatry consult. 5. RICA with poison control should be given and her liver functions will be followed. MMODL / IJN: [id number] /
[2023-07-05 06:17] VITALS: RESP 18
[2023-07-05] MEDS: SODIUM CHLORIDE 0.9% 1,000 ML IV SCH ×2 (06:29→17:33)
[2023-07-05] MEDS ORDERED: ALPRAZolam 0.25 MG TAB PO PRN (07:58)
[2023-07-05] MEDS: busPIRone HCl 10 MG TAB PO SCH ×2 (08:36→21:52)
[2023-07-05] MEDS: PANTOPRAZOLE 40 MG TABLET PO SCH (08:36)
[2023-07-05 09:24] LABS: ALT 47 U/L (4-34); AST 33 U/L (14-36)
[2023-07-05 09:28] LABS: NT-Pro-B-Type Natriuretic Pept 29 pg/mL
--- NOTE | 2023-07-05 14:15 | P.CN ---
Psychiatric Consult - . Consult date: 07/05/23 Consult:: 07/05/23 12:52 IDENTIFYING DATA: This patient is a 47-year-old female, patient states that she lives with her father and cares for him, they live in a trailer. 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 REASON FOR REFERRAL: Psychiatry was consulted for suicide attempt after an overdose HISTORY OF PRESENT ILLNESS: The patient presented to the hospital initially on 07/04 for a suicide attempt after an overdose. According to ER report patient was previously at [facility] after overdose on Klonopin and also Velva, patient was discharged back home and apparently went back home and overdosed once again on 20 tablets of an unknown [id number] sleeping medication. Patient apparently was altered in the ER and poor historian. Patient's LFTs were mildly elevated, Tylenol level was 13.1. Urine toxin was positive for opiates and THC. Patient was seen today laying in bed in agreeable to speak to food writer. She was fairly forthcoming, she spoke about being a recovering addict. 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 She states that she started dating a erika lately and she states that he has been using drugs. She claims that she ended up breaking up with him due to the drug use however did use some cocaine with him. She states that she went to her primary care doctor for a "cyst in my knee" and was prescribed narcotics and also Klonopin for anxiety. She states that lately her depression has gotten worse for the past couple weeks. States that she started taking the opiates and was having severe anxiety and also panic attacks. She claims that she impulsively overdosed on her pills and was minimizing the suicide attempt. She claims that her sister brought her into the hospital once again. States that her sleep has been on and off, appetite is poor.. At this time patient denies any current suicidal or homical ideations, intent or plan. Patient denies any auditory, visual hallucinations and denies any paranoia or delusions. Patients admits to using prescription opiates, abused cocaine recently, denies any other recreational drug use. Said that she has previously at [facility] about 6 years ago for rehab. PAST PSYCHIATRIC HISTORY: Patient has a a history of anxiety and depression along with polysubstance abuse and dependence. Patient denies being on any psychiatric medications. Patient denies any previous psychiatric hospitalizations. Patient denies any psychiatric outpatient follow-up. She claims that she overdosed on medications about 15 years ago. Past Medical History: GERD/Reflux, Syncope, Thyroid Disorder Additional Past Medical History / Comment(s): hiatal hernia, ovarian cyst, hx. arrythmia @times, DJD,back pain due to fracture L5 FX AND BROKE TAILBONE, SINUS PROBLEMS, bloating, pain w/eating, N/V, recent CT scan shows spot on lung-dr monitoring, PAST DUODENAL ULCER History of Any Multi-Drug Resistant Organisms: None Reported Past Surgical History: Section, Cholecystectomy, Hysterectomy, Orthopedic Surgery, Tubal Ligation Additional Past Surgical History / Comment(s): Laparoscopic surgery where bowel was nicked so had emergency bowel surgery, R breast biopsy, LT hand surgery-CYST REMOVED, x2.EGD/DILATION Past Anesthesia/Blood Transfusion Reactions: No Reported Reaction Additional Past Anesthesia/Blood Transfusion Reaction / Comment(s): CLAUSTROPHOBIA Past Psychological History: No Psychological Hx Reported Smoking Status: Current every day smoker Past Alcohol Use History: None Reported Past Drug Use History: None Reported ALLERGIES: as per EMR. CHEMICAL DEPENDENCY HISTORY: as per HPI. FAMILY PSYCHIATRIC/SUBSTANCE USE HISTORY: He claims that her daughter has bipolar disorder SOCIAL HISTORY: Patient was born and raised in [facility]. 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 She is , she has 2 kids. She currently takes care of her elderly father in a trailer. Denies any legal history. MENTAL STATUS EXAM: General Appearance: Patient appears to be stated age is alert, pleasant, and minimizing. Patient appears to have fair hygiene and grooming wearing hospital gown with fair eye contact. Behavior: Patient is calmly lying in bed without any agitated behavior. Minimizing, evasive. Speech: Patient's speech is fluent and nonpressured. Mood/Affect: Patient reports their mood is "depressed and anxious", affect is congruent and tearful Suicidality/Homicidality: Patient denies having any suicidal or homicidal ideation intent or plan. Perceptions: Patient denies any visual hallucinations and denies any auditory hallucinations Though content/process: Goal oriented, minimizing her need for hospitalization and treatment. Minimizing her symptoms. Evasive. Memory and concentration: AOX3, grossly intact for the purposes of this session. Can spell "WORLD" backwards Judgment and insight: poor/impulsive IMPRESSIONS: Overdose on opiates and benzodiazepines along with unknown sleep medications suicide attempt major depressive disorder without psychotic features anxiety disorder NOS opioid abuse PLAN: -At this time patient DOES meet criteria for inpatient psychiatric admission. -Would recommend the following medication changes/additions: Please discontinue/hold controlled medications including opiates and benzodiazepines due to patients abuse history. Discontinued Xanax. Trazodone 50 mg daily at bedtime when necessary for sleep, BuSpar 10 mg twice a day for anxiety. -Continue 1:1 sitter for safety until patient is safely transferred to the mental health unit. -Cannot leave AMA at this time. Patient will need a petition and certification if attempting to leave AMA. -When medically stable, patient is eligible for transfer to a psych bed when available. -Communicated plan to patient's nurse -Psychiatry will sign off at this time -Please contact with any questions. 07/05/23 14:06
[2023-07-05] MEDS: traZODone HCL 50 MG TAB PO PRN (21:52)
[2023-07-05] MEDS: ONDANSETRON 4 MG/2 ML VIAL IVP PRN (23:59)
[2023-07-06] MEDS: SODIUM CHLORIDE 0.9% 1,000 ML IV SCH ×2 (05:45→22:24)
[2023-07-06] MEDS: PANTOPRAZOLE 40 MG TABLET PO SCH ×2 (06:29→21:20)
[2023-07-06] MEDS: busPIRone HCl 10 MG TAB PO SCH ×2 (09:32→20:59)
[2023-07-06] MEDS: ONDANSETRON 4 MG/2 ML VIAL IVP PRN (16:32)
[2023-07-06] MEDS ORDERED: ACETAMINOPHEN TAB 325 MG TAB PO PRN (17:25)
[2023-07-06] MEDS: NAPROXEN 250 MG TAB PO PRN (17:38)
[2023-07-06] MEDS: LORATADINE 10 MG TAB PO PRN (17:38)
[2023-07-06] MEDS: FLUTICASONE 50MCG/SPRAY NASAL 16GM EA NOSTRIL PRN (21:20)
[2023-07-06] MEDS: traZODone HCL 50 MG TAB PO PRN (22:41)
--- NOTE | 2023-07-07 03:41 | PN ---
PROGRESS NOTE DATE OF SERVICE: 07/05/2023 CHIEF COMPLAINT: Drug ingestion, overdose, with depression. HISTORY OF PRESENT ILLNESS: This lady is awake and alert, and quite depressed. She is to be seen by Psychiatry. Her liver enzymes are coming down. PHYSICAL EXAMINATION: SKIN: Color is good. CHEST: Clear. CARDIAC: Normal. ABDOMEN: Soft, nontender. IMPRESSION: 1. Drug ingestion, overdose. 2. Major depression. PLAN: Continue with suicide precautions and monitoring of her vital signs and liver functions. She will probably be going to inpatient psych. MMODL / IJN: [id number] /
--- NOTE | 2023-07-07 03:56 | PN ---
PROGRESS NOTE DATE OF SERVICE: 07/06/2023 CHIEF COMPLAINT: Overdose and depression. HISTORY OF PRESENT ILLNESS: This lady remains extremely depressed. Liver enzymes are stable and coming down. She is complaining of sinus pain and pressure. PHYSICAL EXAMINATION: CHEST: Clear. CARDIAC: Normal. IMPRESSION: 1. Major depression. 2. Overdose. 3. Sinusitis. PLAN: She is to be transferred to the psych floor soon. MMODL / IJN: [id number] /
[2023-07-07] MEDS: PANTOPRAZOLE 40 MG TABLET PO SCH ×2 (05:18→17:09)
[2023-07-07] MEDS: NAPROXEN 250 MG TAB PO PRN ×2 (05:18→17:09)
[2023-07-07] MEDS ORDERED: KETOROLAC 15 MG/ML 1 ML VIAL IVP STA (05:35)
[2023-07-07] MEDS: LORATADINE 10 MG TAB PO PRN ×2 (09:12→20:53)
[2023-07-07] MEDS: busPIRone HCl 10 MG TAB PO SCH ×2 (09:12→21:31)
[2023-07-07] MEDS: FLUTICASONE 50MCG/SPRAY NASAL 16GM EA NOSTRIL PRN (09:12)
[2023-07-07 09:22] LABS: Potassium 3.9 mmol/L (3.5-5.1)
[2023-07-07 09:23] LABS: ALT 28 U/L (4-34); AST 20 U/L (14-36); African American GFR (CKD) >90 (>60 ml/min/1.73 sqM); Albumin 3.4 g/dL (3.5-5.0); Alkaline Phosphatase 67 U/L (38-126); Anion Gap 8 mmol/L; Bilirubin, Delta 0.1 mg/dL (0.0-0.2); Bilirubin,Unconjugated 0.7 mg/dL (0.0-1.1); Blood Urea Nitrogen 9 mg/dL (7-17); Calcium 9.2 mg/dL (8.4-10.2); Carbon Dioxide 23 mmol/L (22-30); Chloride 107 mmol/L (98-107); Glucose 99 mg/dL (74-99); Magnesium 1.6 mg/dL (1.6-2.3); Non-African American GFR(CKD) >90 (>60 ml/min/1.73 sqM); Sodium 138 mmol/L (137-145); Total Bilirubin 0.8 mg/dL (0.2-1.3); Total Protein 5.9 g/dL (6.3-8.2)
[2023-07-07 10:13] LABS: Appearance,Urine Clear (Clear); Bilirubin,Urine Negative (Negative); Blood,Urine Negative (Negative); Color,Urine Yellow; Glucose,Urine (UA) Negative (Negative); Ketones,Urine Negative (Negative); Leukocyte Esterase,Urine Negative (Negative); Nitrite,Urine Negative (Negative); Protein,Urine Trace (Negative); Specific Gravity,Urine 1.022 (1.001-1.035); Urobilinogen,Urine <2.0 mg/dL (<2.0)
[2023-07-07] MEDS: SODIUM CHLORIDE 0.9% 1,000 ML IV SCH ×2 (10:35→21:33)
[2023-07-07 10:40] VITALS: TEMP 98.3
--- NOTE | 2023-07-07 16:23 | P.DS ---
Providers Date of admission: 07/04/23 14:44 Expected date of discharge: 07/07/23 Attending physician: Hortencia Le MD Consults: 07/04/23 14:44 Consult Physician Routine Consulting Provider: Gee Gray Consult Reason/Comments: Suicide attempt Do you want consulting provider notified?: Yes Primary care physician: Thong Colladohven Hospital Course: Discharge Diagnosis: Intentional overdose via ingestion of medications [place], Klonopin, and sleeping pills. Elevated liver enzymes secondary to intentional overdose with [place], Klonopin, and sleeping pills. Resolved with liver enzymes stable with AST of 20, ALT of 28 and alkaline phosphatase of 67 at time of discharge. Suicidal ideations with a plan and repeated suicide attempts Depression, major depressive disorder History of hypothyroidism, TSH normal findings at 0.770. Patient is not on thyroid replacement hormones. No need for additional orders or testing at this time as thyroid appears to be functioning normally. Hospital Course: Patient is a 47-year-old female with a past medical history of hypothyroidism n ot on medication and depression. She was admitted to the emergency department on 07/04/23 secondary to intentional overdose of medication. 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 Patient reportedly then went home and states that she took approximately 20 or more [id number] sleeping pills in an attempt to take her life and presented to our emergency department approximately one hour later. She underwent full evaluation upon arrival to our emergency department. Vital signs upon arrival showed heart rate 129, respiratory rate 18, blood pressure 131/84, temp 98.1F, and SpO2 of 90% on room air. EKG was completed showing sinus tachycardia at 109 bpm with no significant T-wave or ST abnormalities showing no signs of acute ischemia. Labs were completed. CBC was unremarkable. Coagulation profile was normal findings. BMP revealed hyperchloremia with chloride of 109 otherwise normal findings. Magnesium was slightly low at 1.7. Liver profile showing elevated AST of 61, ALT of 63, and an alkaline phosphatase of less than 20. Urinalysis was negative for infection. Urine drug screen was positive for opiates and marijuana. HCG not completed as patient reports history of hysterectomy. Patient was initially admitted under a different hospitalist and on the evening of 07/06/23 [facility] emergency department physicians was contacted by medical sales consultant and asked to his same care of patient and evaluate for medical clearance for discharge to inpatient psychiatric facility. Patient seen and fully evaluated at bedside this morning. Patient appeared to be resting comfortably and denied having any complaints at this time with the exception of urinary frequency and mild lower back pain stating that she feels as though she has a UTI and has a history of frequent UTIs. Order placed for urinalysis to rule out UTI and repeat CMP to follow up on previously elevated liver enzymes. Patient has full resolution of previous elevation in liver enzymes with current AST of 20, ALT of 28, and alkaline phosphatase of 67. TSH was drawn secondary to documented history of hypothyroidism, TSH was normal findings at 0.770. Urinalysis was unremarkable showing no signs of blood or infection. Covid PCR was obtained and was negative. Vital signs are unremarkable with blood pressure 113/75, heart rate 79, respiratory rate 18, temp 98.3F, and SpO2 of 95% on room air. Medically, patient is stable for discharge to inpatient psychiatric facility at this time. Physical exam: Vital signs reviewed and stable. General: Nontoxic, no distress and appears stated age. Derm: Skin warm and dry, normal coloration for ethnicity. Head: Atraumatic, normocephalic and symmetric. Eyes: EOMs intact, no lid lag, and anicteric sclera Mouth: no lip lesions, mucus membranes moist Cardiovascular: regular rate and rhythm with normal S1S2, no murmur, positive posterior tibial pulses bilaterally, and cap refill < 2 seconds. Lungs: Respirations even, regular, and unlabored on room air. Lungs CTA bilaterally, no rhonchi, no rales, no wheezing, and no accessory muscle usage. Abdominal: soft, nontender to palpation, no guarding, no appreciable organomegaly Ext: ROM intact. No gross muscle atrophy, no edema, no contractures Neuro: Speech clear, face symmetrical and CN II-XII grossly intact with no noted focal neuro deficits Psych: Alert and oriented to person, place, time, and situation. Patient with a depressed affect. She continues to report suicidal ideations. She denies having any homicidal ideations or experiencing any visual/tactile/auditory hallucinations. A total of 34 minutes of time were spent preparing this complex discharge summary. Pt was discharged on 07/07/23 at 10:54 AM. Patient was seen independently by Nurse Practitioner. This document was prepared using [employer] dictation software. Please allow for errors in advertising material distributor while rare they do occur. Ajay Coe NP rendered care for this patient independently, reviewed the f indings and plan as documented in the note above. I did not physically speak with or examine the patient on this date. Patient Condition at Discharge: Stable Plan - Discharge Summary Discharge Rx Participant: Yes New Discharge Prescriptions: No Action Omeprazole [PriLOSEC] 40 mg PO BID #60 capsule. Calcium Carbonate [Tums] 1,000 mg PO TID PRN PRN Reason: Heartburn HYDROcodone/APAP 5-325MG [[place] 5-325] 1 tab PO DAILY PRN PRN Reason: Pain Mmkjkev-Pkum-Suzu [phone] [Excedrin] 2 tab PO Q6H PRN PRN Reason: Migraine Headache clonazePAM [KlonoPIN] 0.5 mg PO BID PRN PRN Reason: Anxiety Discharge Medication List Omeprazole [PriLOSEC] 40 mg PO BID #60 capsule. 04/09/15 [Rx] Wytdogv-Nodv-Npfa [phone] [Excedrin] 2 tab PO Q6H PRN 07/04/23 [History] Calcium Carbonate [Tums] 1,000 mg PO TID PRN 07/04/23 [History] HYDROcodone/APAP 5-325MG [[place] 5-325] 1 tab PO DAILY PRN 07/04/23 [History] clonazePAM [KlonoPIN] 0.5 mg PO BID PRN 07/04/23 [History] Patient Instructions/Handouts: Medical Clearance for Psychiatric Care (GEN) Activity/Diet/Wound Care/Special Instructions: Patient is medically cleared for transfer to inpatient psychiatric unit at this time. Discharge Disposition: TRANSFER TO PSYCH HOSP/UNIT
[2023-07-07] MEDS: ONDANSETRON 4 MG/2 ML VIAL IVP PRN (17:09)
[2023-07-07] MEDS: traZODone HCL 50 MG TAB PO PRN (21:31)
[2023-07-08] MEDS: NAPROXEN 250 MG TAB PO PRN (03:40)
[2023-07-08] MEDS: ONDANSETRON 4 MG/2 ML VIAL IVP PRN (03:40)
[2023-07-08 05:03] VITALS: BP 104/63; PULSE 88
--- NOTE | 2023-07-09 01:44 | PN ---
PROGRESS NOTE DATE OF SERVICE: 07/07/2023 CHIEF COMPLAINT: Overdose, depression. HISTORY OF PRESENT ILLNESS: This lady is complaining of headache as well as some sinus congestion. Otherwise, she is awake, alert. Liver functions are normal. PHYSICAL EXAMINATION: CHEST: Clear. CARDIAC: Exam is normal. ABDOMEN: Soft, nontender. IMPRESSION: 1. Major depression. 2. Overdose. 3. Headache. PLAN: Await for psychiatric evaluation and consideration for admission to the psych unit. She is requesting transfer to another doctor and this was ordered. MMODL / IJN: [id number] /
== END 2023-07-08 06:00 | DRG 817 ==
LOC: EC 11:27 → 3SCARD 14:44
PROVIDERS: ADMIT Internal Medicine; ATTEND Internal Medicine
DX: T39.1X2A Poisoning by 4-Aminophenol derivatives, intentional self-harm, initial encounter (principal); T42.4X2A Poisoning by benzodiazepines, intentional self-harm, initial encounter; T42.72XA Poisoning by unspecified antiepileptic and sedative-hypnotic drugs, intentional self-harm, initial encounter; F40.240 Claustrophobia; F17.200 Nicotine dependence, unspecified, uncomplicated; R74.01 Elevation of levels of liver transaminase levels; E87.8 Other disorders of electrolyte and fluid balance, not elsewhere classified; E03.9 Hypothyroidism, unspecified; K71.6 Toxic liver disease with hepatitis, not elsewhere classified; R91.8 Other nonspecific abnormal finding of lung field; F41.9 Anxiety disorder, unspecified; F32.9 Major depressive disorder, single episode, unspecified; M54.9 Dorsalgia, unspecified; J32.9 Chronic sinusitis, unspecified; F11.10 Opioid abuse, uncomplicated; F14.10 Cocaine abuse, uncomplicated; K44.9 Diaphragmatic hernia without obstruction or gangrene; K21.9 Gastro-esophageal reflux disease without esophagitis; Z87.440 Personal history of urinary (tract) infections; Z87.11 Personal history of peptic ulcer disease; Z88.6 Allergy status to analgesic agent; Z88.5 Allergy status to narcotic agent; Z91.040 Latex allergy status; Z91.51 Personal history of suicidal behavior
CPT/HCPCS: 36415; 80048; 80053; 80076; 80143; 80179; 80306; 80320; 81003; 82550; 83605; 83690; 83735; 83880; 84443; 84450; 84460; 85025; 85610; 87635; 93005; 94760; 96361; 96365; 96366; 99291